=== PATIENT | female | born 1980 | race African-American/Black ===

== ENCOUNTER → 2020-02-05 08:43 | Outpatient (BNVA) | payer OTHER, MEDICAID, SELFPAY | PROVIDERS: PCP Internal Medicine; Visit Provider Surgery | DX: Z01.818 Encounter for other preprocedural examination (principal); E66.9 Obesity, unspecified; Z68.37 Body mass index [BMI] 37.0-37.9, adult; R06.02 Shortness of breath | CPT/HCPCS: 99204 ==

== ENCOUNTER 2020-04-02 17:51 | Outpatient (REF) | payer OTHER, MEDICAID, SELFPAY | END 2020-04-02 17:52 | disposition home or self-care (01) | LOC: HO.LAB 17:51 | PROVIDERS: Visit Provider Internal Medicine | DX: Z20.828 Contact with and (suspected) exposure to other viral communicable diseases (principal) | CPT/HCPCS: C9803; U0003 ==

== ENCOUNTER 2020-04-21 09:01 | Outpatient (REF) | payer OTHER, SELFPAY ==
--- NOTE | 2020-04-21 09:26 | XR_ITS ---
EXAMINATION: XR LUMBOSACRAL SPINE CLINICAL INFORMATION: Back pain COMPARISON: None TECHNIQUE: Three views of the lumbosacral spine. FINDINGS: There is normal lumbar segmentation with 5 nonrib-bearing lumbar vertebrae of normal height and normal lumbar lordosis. There is no vertebral compression, spondylolisthesis, destructive process. There are degenerative disc changes at L5-S1 with mild disc narrowing and vertebral spurring and mild facet degeneration. Mild vertebral spurring without disc narrowing present at L3-L4. Degenerative changes lower thoracic spine are present at T10-T11 and T11-T12. The SI joints and visualized sacrum are unremarkable. XR/XR lumbar spine 2-3V IMPRESSION: 1. Degenerative disc and mild facet degeneration L5-S1. 2. Mild degenerative disc changes T10-T11 and T11-T12.
[2020-04-21 10:10] LABS: MANUAL DIFF FLAG NO
[2020-04-21 10:25] LABS: Basophils Percent Auto 0.3 % (0-2); Eosinophils Absolute Auto 0.1 X10*3/uL (0.0-0.4); Eosinophils Percent Auto 1.2 % (0-4); Hematocrit 39.8 % (37-47); Hemoglobin 11.4 g/dl (12.0-16.0); Imm Gran Abs Auto 0.02 X10*3/uL (0.00-0.03); Imm Gran Pct Auto 0.2 % (0.0-0.4); Lymphocytes Absolute Auto 3.5 X10*3/uL (1.2-4.9); Lymphocytes Percent Auto 39.1 % (20-40); Mean Corpuscular HGB Conc 28.6 g/dl (31.0-35.0); Mean Corpuscular Hemoglobin 22.1 pg (27.0-33.0); Mean Platelet Volume 10.2 fL (9.4-12.3); Monocytes Absolute Auto 0.5 X10*3/uL (0.1-1.2); Monocytes Percent Auto 5.1 % (2-11); Neutrophils Absolute Auto 4.8 X10*3/uL (2.0-8.3); Neutrophils Percent Auto 54.1 % (45-73); Platelet Count 437 X10*3/uL (160-400); Red Blood Count 5.17 X10*6/uL (4.20-5.50); Red Cell Distribution Width 16.4 % (11.0-16.0); White Blood Count 8.9 X10*3/uL (4.8-10.8)
[2020-04-21 10:59] LABS: Alanine Aminotransferase 13 U/L (0-31); Albumin Level 4.4 g/dL (3.5-5.0); Alkaline Phosphatase 64 U/L (39-117); Anion Gap 12 (12-20); Aspartate Amino Transferase 16 U/L (5-31); Blood Urea Nitrogen 13 mg/dL (9-16); Calcium 9.2 mg/dL (8.4-10.2); Carbon Dioxide 27 mmol/L (22-29); Chloride 104 mmol/L (96-108); Estimated Glomerular Filt Rate > 60; Glucose Fasting 102 mg/dL (60-99); Potassium 5.3 mmol/l (3.3-5.1); Sodium 138 mmol/L (135-145); Total Protein 8.2 g/dL (6.5-8.0)
[2020-04-21 11:05] LABS: Bilirubin Total 0.2 mg/dL (0.0-1.0)
[2020-04-21 11:09] LABS: TSH reflex Free T4 1.45 mIU/mL (0.32-4.0)
[2020-04-21 11:12] LABS: Vitamin B12 666 pg/mL (200-900)
[2020-04-24 21:12] LABS: Vitamin D 25-OH, D2 <4 ng/mL; Vitamin D 25-OH, D3 35 ng/mL; Vitamin D 25-OH, Total 35 ng/mL (30-100)
== END 2020-04-21 09:02 | disposition home or self-care (01) ==
LOC: HO.LAB 09:01
PROVIDERS: Visit Provider Internal Medicine
DX: M54.5 Low back pain (principal); R53.82 Chronic fatigue, unspecified; E55.9 Vitamin D deficiency, unspecified
CPT/HCPCS: 36415; 72100; 80053; 82306; 82607; 82746; 84443; 85025

== ENCOUNTER 2020-04-21 10:22 | Outpatient (REF) | payer OTHER, SELFPAY | END 2020-04-21 10:23 | disposition home or self-care (01) | LOC: HO.LAB 10:22 | PROVIDERS: Visit Provider Internal Medicine | DX: Z20.822 Contact with and (suspected) exposure to COVID-19 (principal) | CPT/HCPCS: 36415; C9803; U0003 ==

== ENCOUNTER 2020-06-10 10:48 | Outpatient (REF) | payer OTHER, SELFPAY | END 2020-06-10 10:49 | disposition home or self-care (01) | LOC: HO.LAB 10:48 | PROVIDERS: PCP Internal Medicine; Visit Provider Internal Medicine | DX: Z20.822 Contact with and (suspected) exposure to COVID-19 (principal) | CPT/HCPCS: 36415; C9803; U0003; U0005 ==

== ENCOUNTER 2020-07-15 12:42 | Outpatient (REF) | payer OTHER, SELFPAY ==
--- NOTE | ~2020-07-15 | MM_ITS ---
EXAMINATION: MM DIAGNOSTIC DIGITAL BREAST TOMOSYNTHESIS, BILATERAL CLINICAL INFORMATION: Bilateral breast densities. The lifetime risk of breast cancer based on the Tyrer-Cuzick Model is 10.4%. COMPARISON: Mammography: 03/29/2019 TECHNIQUE: Digital breast tomosynthesis is performed in both the craniocaudal and mediolateral oblique views along with computer-aided detection (CAD). Synthesized 2D images are generated from the tomosynthesis. FINDINGS: The breasts are extremely dense, which lowers the sensitivity of mammography (ACR BI-RADS breast composition Category d). There are again noted to be multiple bilateral circumscribed densities. One dominant mass about the medial central aspect of the right breast has increased in size from approximately 3.2 x 2.9 x 2.6 cm in size on 03/29/2019 to approximately 4.0 x 3.5 x 3.3 cm in size. There is multiplicity and bilaterality of calcifications. Question of architectural distortion within the inferior medial aspect of the left breast is stable and represents superimposition of fibroglandular tissue. Patient could not stay for bilateral breast ultrasound at this time and has rescheduled. MM/MM tomosynthesis diagnostic BI IMPRESSION: Bilateral breast densities for which ultrasound is recommended. Increase in size of right breast nodule and depending on ultrasound appearance ultrasound-guided core biopsy may be recommended. ASSESSMENT: BI-RADS 0: Incomplete - Need Additional Imaging Evaluation RECOMMENDATION: Bilateral breast ultrasound. Final recommendation will be given after ultrasound study is performed. This patient's information was entered into a reminder system with a target due date for their next mammogram.
== END 2020-07-15 12:43 | disposition home or self-care (01) ==
LOC: HO.MAMMO 12:42
PROVIDERS: Visit Provider Internal Medicine
DX: N64.89 Other specified disorders of breast (principal)
CPT/HCPCS: 77062; 77066

== ENCOUNTER 2020-08-05 09:46 | Outpatient (REF) | payer OTHER, SELFPAY ==
[2020-08-05 10:36] LABS: COVID-19 Test Negative (Negative); IDNOW Serial# 55D5AD1C
== END 2020-08-05 09:47 | disposition home or self-care (01) ==
LOC: HO.LAB 09:46
PROVIDERS: Visit Provider Internal Medicine
DX: Z20.822 Contact with and (suspected) exposure to COVID-19 (principal)
CPT/HCPCS: 36415; 87635; C9803

== ENCOUNTER 2020-09-02 13:02 | Outpatient (REF) | payer OTHER, SELFPAY ==
--- NOTE | ~2020-09-02 | US_ITS ---
EXAMINATION: US DIAGNOSTIC ULTRASOUND BREAST, BILATERAL CLINICAL INFORMATION: Bilateral parenchymal asymmetries on mammography. Prior diagnostic ultrasound noted several masses right breast. COMPARISON: Mammography 07/15/2020, 03/29/2019, bilateral breast ultrasound 03/29/2019. TECHNIQUE: Bilateral targeted breast ultrasound is performed using grayscale imaging and color Doppler without and with harmonics. The right breast is imaged in 3:00 through 12:00 position and left breast 12:00 through 10:00 position. FINDINGS: Right: There is an incidental cyst 12:00 position mid depth measuring 3.7 x 1.7 cm. Follow-up of the known solid masses right breast are as follows: 7:00, 4 cm from nipple, circumscribed, heterogeneous solid. Current measurements are 3.8 x 3.4 x 1.7 cm. Prior measurements 3.3 x 2.6 x 1.6 cm on ultrasound 03/29/2019. This lesion was previously recommended for biopsy to confirm fibroadenoma. 8:00, 7 cm from nipple, circumscribed solid with some internal cystic foci. Current measurements are 1.7 x 0.7 cm. Prior measurements 1.4 x 0.7 cm. No significant change in size or appearance. 3:00, 2 cm from nipple, circumscribed solid. Current measurements are 1.0 x 0.5 cm. Prior measurements 1.0 x 0.5 cm. No significant change in size or appearance. Left: There are scattered cysts present under 1 cm. There is a solid mass not previously described 9:00 position mid depth measuring 1.4 x 0.9 cm, likely fibroadenoma. Results are discussed with the patient at time of visit. Patient has had prior outside imaging from the [place]. Neither the exams or reports are called to the retrieved as previously requested. Patient is in agreement with ultrasound-guided core sampling of the largest mass right breast 3.8 cm in greatest dimension. The other masses may continue to be followed with serial ultrasound follow-up. Results and recommendation called to office ([place]) for Dr. Alli Rodriguez on 09/02/2020. US/US breast RT limited IMPRESSION: Right: 1. The largest mass lower right breast is slightly increased in size from prior exam 03/29/2019, currently measuring 3.8 cm. Ultrasound-guided core biopsy recommended to confirm benignity, possibly fibroadenoma. 2. The other smaller masses right breast are without significant change and may continue to be followed with ultrasound. Left: 1. Scattered small cysts left breast. 2. Small oval solid mass 9:00 position is not previously described 1.4 cm, likely fibroadenoma. ASSESSMENT: BI-RADS 4: Suspicious (subcategory 4A: Low suspicion for malignancy) RECOMMENDATION: 1. Ultrasound-guided core biopsy right breast mass. 2. Ultrasound follow-up other bilateral breast masses in 6 months. This patient's information was entered into a reminder system with a target due date for their next mammogram.
== END 2020-09-02 13:03 | disposition home or self-care (01) ==
LOC: HO.MAMMO 13:02
PROVIDERS: Visit Provider Internal Medicine
DX: R92.2 Inconclusive mammogram (principal)
CPT/HCPCS: 76642

== ENCOUNTER 2020-09-16 09:04 | Outpatient (REF) | payer OTHER, SELFPAY ==
--- NOTE | ~2020-09-16 | US_ITS ---
EXAMINATION: EXAMINATION: ULTRASOUND GUIDED CORE BIOPSY BREAST, RIGHT POST PROCEDURE DIGITAL MAMMOGRAM, RIGHT CLINICAL INFORMATION: Multiple masses, likely fibroadenomas, recommend tissue sampling largest lesion on right, increased in size, 4 cm in greatest dimension. COMPARISON: Mammography 07/15/2020, bilateral breast ultrasound 09/02/2020. FINDINGS: Proper informed consent is obtained from the patient after discussion of the procedure, potential risks and complications, and alternatives. Patient was given an opportunity for questions. The patient appeared to understand. The patient consented to the procedure and signed the consent form. Hospital provided supervisor putty and caluking assisted for consent and throughout the procedure. GUIDANCE: Ultrasound-guided; aseptic technique. LESION: Oval circumscribed solid mass lower outer right breast approximately 4 cm. APPROACH: Lateral medial. ANESTHESIA: 10 mL 1% lidocaine. DERMATOTOMY: Single skin shiela dermatotomy performed. NEEDLE: 14-gauge Achieve core biopsy device with 13.5-gauge co-axial guide needle. CORES: 5. CLIP: HydroMARK; shape: butterfly. POST PROCEDURE UNILATERAL DIGITAL MAMMOGRAM: The post biopsy mammogram is performed in separate room using separate digital mammography equipment from the biopsy procedure. CC and ML views are obtained. The breasts are heterogeneously dense, which may obscure small masses (breast composition category: c) and stable oval masses. The clip marker is in position. No gross hematoma. The patient tolerated the procedure well. No immediate complications. Home instructions reviewed with the patient. Final pathology results are pending. US/US breast ndl core biopsy RT IMPRESSION: 1. Status post ultrasound-guided core biopsy right breast. 2. Clip placed: HydroMARK; shape: butterfly. 3. Pathology pending. An addendum report will be issued.
[2020-09-16 09:28] LABS: MANUAL DIFF FLAG NO
[2020-09-16 09:32] LABS: Basophils Percent Auto 0.2 % (0-2); Eosinophils Absolute Auto 0.3 X10*3/uL (0.0-0.4); Eosinophils Percent Auto 3.2 % (0-4); Hematocrit 36.2 % (37-47); Hemoglobin 10.7 g/dl (12.0-16.0); Imm Gran Abs Auto 0.02 X10*3/uL (0.00-0.03); Imm Gran Pct Auto 0.2 % (0.0-0.4); Lymphocytes Absolute Auto 3.3 X10*3/uL (1.2-4.9); Lymphocytes Percent Auto 37.5 % (20-40); Mean Corpuscular HGB Conc 29.6 g/dl (31.0-35.0); Mean Corpuscular Hemoglobin 21.9 pg (27.0-33.0); Mean Corpuscular Volume 74.2 fL (80-98); Mean Platelet Volume 9.2 fL (9.4-12.3); Monocytes Absolute Auto 0.5 X10*3/uL (0.1-1.2); Neutrophils Absolute Auto 4.7 X10*3/uL (2.0-8.3); Neutrophils Percent Auto 52.9 % (45-73); Platelet Count 383 X10*3/uL (160-400); Red Blood Count 4.88 X10*6/uL (4.20-5.50); Red Cell Distribution Width 16.6 % (11.0-16.0); White Blood Count 8.9 X10*3/uL (4.8-10.8)
[2020-09-16 09:58] LABS: Alanine Aminotransferase 15 U/L (0-31); Albumin Level 4.1 g/dL (3.5-5.0); Alkaline Phosphatase 61 U/L (39-117); Anion Gap 11 (12-20); Aspartate Amino Transferase 17 U/L (5-31); Bilirubin Total 0.2 mg/dL (0.0-1.0); Blood Urea Nitrogen 13 mg/dL (9-16); Calcium 9.4 mg/dL (8.4-10.2); Carbon Dioxide 27 mmol/L (22-29); Chloride 105 mmol/L (96-108); Estimated Glomerular Filt Rate > 60; Glucose Random 105 mg/dL (60-115); Potassium 4.7 mmol/L (3.3-5.1); Sodium 138 mmol/L (135-145); Total Protein 7.5 g/dL (6.5-8.0)
== END 2020-09-16 09:05 | disposition home or self-care (01) ==
LOC: HO.MAMMO 09:04
PROVIDERS: Absent Provider Internal Medicine; PCP Internal Medicine; Visit Provider Surgery
DX: N63.13 Unspecified lump in the right breast, lower outer quadrant (principal); N64.89 Other specified disorders of breast; D64.9 Anemia, unspecified; M54.40 Lumbago with sciatica, unspecified side; R53.82 Chronic fatigue, unspecified; I10 Essential (primary) hypertension; M54.9 Dorsalgia, unspecified
CPT/HCPCS: 19083; 36415; 77065; 80053; 85025; 88305; 99202

== ENCOUNTER → 2020-09-23 12:56 | Outpatient (BNVA) | payer OTHER, SELFPAY | PROVIDERS: PCP Internal Medicine; Referring Provider Internal Medicine; Visit Provider Surgery | DX: N64.89 Other specified disorders of breast (principal) | CPT/HCPCS: 99212 ==

== ENCOUNTER → 2021-07-14 10:52 | Outpatient (BNVA) | payer SELFPAY | PROVIDERS: PCP Internal Medicine; Visit Provider Physician Assistant Medical | DX: Z02.79 Encounter for issue of other medical certificate (principal) ==

== ENCOUNTER 2022-07-01 09:13 | Outpatient (RCR) | payer OTHER, SELFPAY ==
--- NOTE | 2022-07-01 16:45 | MHC.PT.EP ---
[facility] [place] Office [place] Office [place] Office [address] [place] Rubin [address] [phone] F: [phone] F: [phone] F: [phone] F: [phone] Physical Therapy Plan of Care Date of Evaluation: Date of Surgery: Diagnosis: Unspecified fracture of unspecified lumbar vertebra. Assessment: Pt is a 42 y/o female referred to PT for eval and treat unspecified lumbar fracture resulting in decreased tolerance and ability for bending to brain picker things from the floor, bed mobility, getting in and out of a vehicle, negotiating stairs, standing, sitting, and walking for duration secondary to evidence of non acute left L1-L4 transverse process fractures on CT scan, decreased trunk ROM and strength, decreased transfer ability, TTP of L lumbar spine, gait abnormality, and pain. Pt is deemed an appropriate candidate to receive skilled PT services to address their physical impairments in order to improve their functional ability. Frequency and Duration: The patient will be seen 2 x / wk x 5 wks. Short Term Goals: Initiate HEP. Improve baseline pain to < 5/10; initial: 8/10. Manager Scheduling Goals: I with home program. Pt will be able to stand as long as shed like with managed pain; initial: < 1 hour. Pt will improve Denzel outcome measure by at least 9 points in order to demonstrate improved function. Pt will report < 1/4 disturbed sleep d/t lumbar pain; initial: 3/4 disturbed. Pt will be able to negotiate 1 fl of stairs with reciprocal steps; initial: non reciprocal. Improve core strength to at least Good (+), initial: Fair (+) limited by pain. Treatment Plan: Modalities to reduce pain, spasms and effusion. Manual therapy to restore motion and function. Therapeutic exercise to improve strength and flexibility. Neuromuscular re-education for posture and balance. Therapeutic activities to return to functional activities of daily living. Electronically signed by: Ellis Flowers PT Please sign and return to therapist. Thank you for your referral.
--- NOTE | 2022-07-27 15:46 | MHC.PT.DC ---
[facility] [place] Office [place] Office [place] Office [address] [place] [address] [facility] [phone] F: [phone] F: [phone] F: [phone] F: [phone] Physical Therapy Discharge Report Diagnosis: Unspecified fracture of unspecified lumbar vertebra. Date of Surgery: Date of Evaluation: 07/01/22 Date of Discharge: 07/27/22 Treatments to Date: 1 Cancellations to Date: 2 No Shows to Date: 2 Discharge Status: Visit Non-compliance Discharge Summary: Electronically signed by: Ellis Flowers PT. Please sign and return to therapist. Thank you for your referral.
== END 2022-07-27 15:46 | disposition home or self-care (01) ==
LOC: HO.PTCHIC 09:13
PROVIDERS: PCP Internal Medicine; Visit Provider Nurse Practitioner Family
DX: S32.009A Unspecified fracture of unspecified lumbar vertebra, initial encounter for closed fracture (principal)
CPT/HCPCS: 97161

== ENCOUNTER 2022-07-29 09:33 | Outpatient (REF) | payer OTHER, SELFPAY ==
--- NOTE | ~2022-07-29 | CT_ITS ---
EXAMINATION: CT head/brain wo IV con CLINICAL INFORMATION: Reason for Exam R51.9 - Headache, unspecified COMPARISON: None. TECHNIQUE: Contiguous axial imaging was performed from the skull base to vertex without intravenous contrast. Sagittal and coronal reformatted images were obtained. This CT examination was performed using dose optimization techniques as appropriate, variously including the following: * Automated exposure control * Adjustment of mA and/or kV according to patient size (this includes techniques or standardized protocols for targeted exams where dose is matched to indication/reason for exam; i.e. extremities or head) Use of iterative reconstruction technique DLP: 784 mGy-cm FINDINGS: No acute osseous or soft tissue abnormality. The mastoids are clear. Mild scattered paranasal sinus mucosal thickening. There is no evidence of acute intracranial hemorrhage or territorial infarction. No abnormal mass effect or midline shift is seen. Wright to white matter differentiation is well preserved. No extra-axial fluid collections are identified. No hydrocephalus. No significant volume loss. There is no abnormal attenuation within the brain parenchyma. CT/CT head/brain wo IV con IMPRESSION: No acute intracranial abnormality including hemorrhage, mass effect, hydrocephalus, or acute territorial edematous infarction. .
[2022-07-29 09:53] LABS: MANUAL DIFF FLAG NO
[2022-07-29 10:10] LABS: Basophils Percent Auto 0.4 % (0-2); Eosinophils Absolute Auto 0.2 X10*3/uL (0.0-0.4); Eosinophils Percent Auto 2.8 % (0-4); Hematocrit 35.4 % (37.0-47.0); Hemoglobin 10.7 g/dl (12.0-16.0); Imm Gran Abs Auto 0.01 X10*3/uL (0.00-0.03); Imm Gran Pct Auto 0.1 % (0.0-0.4); Lymphocytes Absolute Auto 3.6 X10*3/uL (1.2-4.9); Lymphocytes Percent Auto 47.4 % (20-40); Mean Corpuscular HGB Conc 30.2 g/dl (31.0-35.0); Mean Corpuscular Hemoglobin 22.3 pg (27.0-33.0); Mean Corpuscular Volume 73.9 fL (80.0-98.0); Monocytes Absolute Auto 0.4 X10*3/uL (0.1-1.2); Monocytes Percent Auto 5.8 % (2-11); Neutrophils Absolute Auto 3.3 x10*3/uL (2.0-8.3); Neutrophils Percent Auto 43.5 % (45-73); Platelet Count 421 X10*3/uL (160-400); Red Blood Count 4.79 X10*6/uL (4.20-5.50); Red Cell Distribution Width 17.1 % (11.0-16.0); White Blood Count 7.6 X10*3/uL (4.8-10.8)
[2022-07-29 10:39] LABS: Iron 37 mcg/dL (30-160); Percent Iron Saturation 9 % (15-50); Total Iron Binding Capacity 398 mcg/dL (228-428); Unsaturated Iron Binding 361 ug/dL
== END 2022-07-29 09:34 | disposition home or self-care (01) ==
LOC: HO.XRAY 09:33
PROVIDERS: PCP Internal Medicine; Visit Provider Internal Medicine
DX: R51.9 Headache, unspecified (principal); D64.9 Anemia, unspecified; Z91.81 History of falling
CPT/HCPCS: 36415; 70450; 83540; 85025

== ENCOUNTER 2022-08-05 13:58 | Outpatient (REF) | payer OTHER, SELFPAY ==
--- NOTE | ~2022-08-05 | MM_ITS ---
EXAMINATION: BILATERAL TARGETED BREAST ULTRASOUND MM DIAGNOSTIC DIGITAL BREAST TOMOSYNTHESIS, BILATERAL CLINICAL INFORMATION: Mastodynia. 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 The lifetime risk of breast cancer based on the Tyrer-Cuzick Model is 9.4%. COMPARISON: Mammography: 09/16/2020 and studies dating back to 03/29/2019. TECHNIQUE: Digital breast tomosynthesis is performed in both the craniocaudal and mediolateral oblique views along with computer-aided detection (CAD). Synthesized 2D images are generated from the tomosynthesis. Bilateral targeted breast ultrasound. FINDINGS: The breasts are extremely dense, which lowers the sensitivity of mammography (ACR BI-RADS breast composition Category d). Numerous circumscribed densities are again noted within the breast bilaterally. These have increased in size since previous study of 07/15/2020. Comparison of measurements of the few largest densities bilaterally will be made in craniocaudal dimension. There is multiplicity and bilaterality of calcifications. RIGHT BREAST: The largest anterolateral lesion which had been biopsied previously measures approximately 4.6 x 3.7 cm in size compared to 4.0 x 3.4 cm on prior study. A dominant medial right breast circumscribed density measures 5.4 x 4.1 cm in size compared to 4.2 x 3.3 cm on prior study. A deep lateral density measures 4.0 x 3.2 cm in size compared to 2.6 x 2.6 cm in size on prior study. LEFT BREAST: About the medial aspect of the breast there is a circumscribed approximately 8.2 x 6.7 cm nodule compared to 5.7 x 7.3 cm on previous study. About the lateral aspect one appears to have gotten smaller which now measures 3.3 x 2.4 cm in size compared to 4.2 x 2.7 cm on previous study. Within the deep central aspect there is a 3.5 x 2.7 cm density which on prior study measured 3.3 x 2.2 cm in size. RIGHT BREAST ULTRASOUND: There are numerous circumscribed lesions present, some which are homogeneous in echotexture and some with what appears to be cystic change within it with the appearance of complex fibroadenoma and with a few greater than 4 cm in size which may represent giant fibroadenomas. These could also be related to PASH. The amount of growth is not unusual for fibroadenomas. A phyllodes tumor cannot be excluded. The largest is at approximately 7 o'clock location measuring 4.4 x 1.8 x 3.9 cm in size. At the 9 o'clock position there is a 4.0 x 1.7 x 3.4 cm in size lesion. LEFT BREAST: Numerous circumscribed lesions are noted similar to those seen within the right breast. Many of these are complex echotexture structures. Patient is having breast pain and we will refer patient to a surgeon for further clinical evaluation. Results are discussed with the patient at time of visit. Report was called to referring provider's office by patient navigator speaking to Marian. 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 Since patient is having symptoms related to the mass lesions we will refer her to a surgeon. ASSESSMENT: BI-RADS 2: Benign. RECOMMENDATION: 1. Patient should be managed based on the clinical impression. Decision to proceed with biopsy or excisions should be based on clinical grounds and degree of clinical concern. 2. Otherwise, routine annual screening mammography. This patient's information was entered into a reminder system with a target due date for their next mammogram.
== END 2022-08-05 13:59 | disposition home or self-care (01) ==
LOC: HO.MAMMO 13:58
PROVIDERS: PCP Internal Medicine; Visit Provider Internal Medicine
DX: N64.4 Mastodynia (principal)
CPT/HCPCS: 76641; 77062; 77066

== ENCOUNTER → 2022-08-26 09:44 | Outpatient (BNVA) | payer OTHER, SELFPAY | PROVIDERS: PCP Internal Medicine; Referring Provider Radiology Diagnostic Radiology; Visit Provider Surgery ==

== ENCOUNTER 2022-09-20 05:51 | Day surgery (SDC) | payer OTHER, SELFPAY ==
[2022-09-15 09:53] VITALS: BMI 38.8
--- NOTE | 2022-09-17 09:10 | HO.ANESPROP2 ---
Documented by User: Neyda Benz NP 09/17/22 09:11 HPI - Anesthesia Eval Consult details Narrative: 42yo F for Bilateral Breast Masses Excision PMFSH Active Problems Active Problems: All Active Problems (Updated 07/06/22 @ 08:59 by SAGAR Alvarado) Status post fall (Acute) Headache (Acute) Class 2 obesity with body mass index (BMI) of 38.0 to 38.9 in adult (Acute) Anemia (Acute) Breast lump (Acute) Lumbar transverse process fracture (Acute) Breast pain (Acute) Onychogryposis (Acute) Encounter for physical examination (Acute) Post-COVID chronic cough (Acute) Polyarthralgia (Acute) Pseudoangiomatous stromal hyperplasia of breast (Acute) Abnormal ultrasound of breast (Acute) Hand numbness (Acute) Asthma (Acute) Back pain (Acute) Chronic fatigue (Acute) Body mass index (BMI) of 37.0-37.9 in adult (Acute) Obesity (BMI 30-39.9) (Acute) Past Medical History Medical History Asthma Back pain Chronic fatigue Hand numbness Hypertension Polyarthralgia Family History Family History Father Cardiac murmur CVD (cardiovascular disease) Mother Diabetes Hypertension Sister No problems noted. Brother No problems noted. Brother No problems noted. Brother No problems noted. Surgical History Surgical History H/O right breast biopsy Social History Social History Housing: Apartment Alcohol intake: current Alcohol intake frequency: holidays/special occasions only Alcohol type: beer Patient Tobacco Use Status: Never used Tobacco e-Cigarette/Vaping Use: Never Used Second Hand Smoke Exposure: No service: No Current occupational status: employed Current occupational exposures/hazards: No Cognitive needs: No Hearing needs: No Vision needs: No Meds Allergies Allergy/AdvReac Type Severity Reaction Status Date / Time grass pollen Allergy Intermediate shorness Verified 08/26/22 09:55 of breath, itchy throat, itch Home Medications Medication Instructions Recorded Confirmed Last Taken Type diphenhydramine HCl 25 mg capsule 25 mg PO Q6H PRN Shortness Of 10/07/20 09/20/22 Unknown History Breath ibuprofen 600 mg tablet 600 mg PO TID 06/16/22 09/20/22 Unknown History Exam Exam Date and Time: September 17, 2022 0910 Height,Weight and Vital Signs: Height 5 ft 4 in Weight 102.512 kg Pertinent Lab Results Pertinent Lab Results: Laboratory Tests 07/29/22 09:52 WBC 7.6 Hgb 10.7 L Hct 35.4 L Plt Count 421 H Assessment and Plan Assessment Anesthesia Assessment: Chart Reviewed Documented by User: Rodolfo Chaudhry MD 09/20/22 17:59 PMFSH Past Medical History Medical History Asthma Back pain Chronic fatigue Hand numbness Hypertension Polyarthralgia Functional capacity: independent ambulation Family History Family History Father Cardiac murmur CVD (cardiovascular disease) Mother Diabetes Hypertension Sister No problems noted. Brother No problems noted. Brother No problems noted. Brother No problems noted. Family history of problems with anesthesia: No Surgical History Surgical History H/O right breast biopsy History of Problems with Anesthesia: No Social History Social History Housing: Apartment Alcohol intake: current Alcohol intake frequency: holidays/special occasions only Alcohol type: beer Patient Tobacco Use Status: Never used Tobacco e-Cigarette/Vaping Use: Never Used Second Hand Smoke Exposure: No service: No Current occupational status: employed Current occupational exposures/hazards: No Cognitive needs: No Hearing needs: No Vision needs: No Meds Allergies Allergy/AdvReac Type Severity Reaction Status Date / Time grass pollen Allergy Intermediate shorness Verified 08/26/22 09:55 of breath, itchy throat, itch Home Medications Medication Instructions Recorded Confirmed Last Taken Type diphenhydramine HCl 25 mg capsule 25 mg PO Q6H PRN Shortness Of 10/07/20 09/20/22 Unknown History Breath ibuprofen 600 mg tablet 600 mg PO TID 06/16/22 09/20/22 Unknown History Exam Airway Mallampati Class: IV TM Dist: >3cm Neck ROM: Full Loose/Missing/Broken Teeth: Yes Assessment and Plan Assessment Anesthesia Assessment: Anesthesia Plan Discussed Final Anesthetic Review Family History of Problems with Anesthesia: No History of Problems with Anesthesia: No NPO: Yes ASA Class: II Final Preanesthetic Review: Meds/Allgs Chart Reviewed, Consent Obtained/Reviewed and Anes Risks/Benef Reviewed Patient Risk: Intermediate Procedure Risk: Intermediate Anesthetic Plan Anesthetic Plan: GA Disposition: Standard PACU
[2022-09-20] VITALS (7 sets, daily range): BP systolic 153–173; BP diastolic 85–95; PULSE 77–91; RESP 16–18; TEMP 36.1–36.2; O2SAT 97–100; BMI 36.3
[2022-09-20 06:27] LABS: UPreg QC Valid YES; Urine Pregnancy NEGATIVE (NEGATIVE)
[2022-09-20] MEDS: Lactated Ringers 1,000 ML 100 ML IVCONT (06:40)
--- NOTE | 2022-09-20 07:39 | MHC.SHP ---
Pre-Procedural Eval Section A Date of Service: 09/20/22 The patient is an INPATIENT: No Changes since office visit: Yes Patient answered all questions; No Cold of Flu in the past 2 weeks, No New Medical Problems and No Changes in Medication The History & Physical has been completed within 30 days and I have reviewed it.: Yes Section B Chief Complaint: Unspecified lump in unspecified breast Allergies: Allergies Allergy/AdvReac Type Severity Reaction Status Date / Time grass pollen Allergy Intermediate shorness Verified 08/26/22 09:55 of breath, itchy throat, itch Plan Diagnosis/Plan: Unchanged I have reviewed the history and physical and performed a pertinent physical examination on my patient. No changes have occurred unless specified. Time Spent With Patient Time: Total time managing care of this patient today ____ minutes.
--- NOTE | 2022-09-20 07:58 | P.OP_ITS ---
Operative Note Operative Note Date of Service: 09/20/22 Narrative: Preoperative diagnosis: bilateral breast masses, fibroadenoma Postoperative diagnosis: same Procedure: excision of bilateral breast masses Surgeon: Rei Acevedo MD Foot Press Operator: Myla Rowe PA-C Anesthesia: general LMA Indications for procedure: 42-year-old female patient presenting with a known history of fibroadenoma previously biopsied which have increased in size. Patient is requested excision of the multiple bilateral palpable breast lumps. Operative findings: Bilateral breast lumps including 06:00 o'clock, 07:00 o'clock and 09:00 o'clock in the left breast and 09:00 o'clock and 06:00 o'clock right breast Specimen: bilateral breast source Estimated blood loss: 20 mL Complications: none Procedure details: patient was brought to the OR placed in a supine position. After administering general anesthesia patient's bilateral breasts were prepped with ChloraPrep and draped in a sterile fashion. A surgical time-out was called the consent confirmed. Patient received preoperative antibiotics and Venodyne boots were in place. Beginning in the left breast local anesthesia was infiltrated in a curvilinear fashion and the inferior portion of the nipple- areolar complex. A curvilinear incision was then made along the margin of the areola and carried out through subcutaneous tissue. Superior inferior skin flaps were then created. The palpable fibroadenoma noted in the 9 o'clock p osition was then grasped with an Allis clamp. Electrocautery and scissors were then used to excise around the palpable mass. Multiple small cysts were noted consistent with fibrocystic change surrounding the palpable lump. In a similar fashion lesions at the 06:00 o'clock and 07:00 o'clock were also identified, grasped with Allis clamp and excised using electrocautery and curved Mcclain scissors. Attention was then directed to the right breast were curvilinear incision was made in the lower outer portion of the nipple-areolar complex. Incision was carried out through subcutaneous tissue. Superior inferior skin flaps were then created. A palpable mass in the 9 o'clock position was then grasped with an Allis clamp approximately 5 cm from the areola. Electrocautery was then used to dissect around the palpable lesion in the lesion sent pathology for further examination. A 2nd lesion slightly inferior to this was in grasped with Allis clamp and resected corresponding to the 9 to 6 o'clock position. This was also sent to pathology for further examination. Hemostasis was then assured using electrocautery. Bilateral incisions were then irrigated with saline solution and checked for hemostasis. Hemostasis was assured using electrocautery. Deep breast tissue was then reapproximated on both sides using interrupted 3-0 Polysorb sutures. Dermis was reapproximated using interrupted 3-0 Polysorb sutures. Skin was then closed using a running subcuticular 4-0 Polysorb suture. Steri-Strips, 2 x 2 gauze and Tegaderm were then applied. Patient tolerated the procedure well. Sponge, instrument, and needle counts reported as correct. Patient was transferred to PACU in stable condition.
[2022-09-20] MEDS: oxyCODONE HCl Immed Release 5 MG TABLET PO (10:03)
== END 2022-09-20 10:57 | disposition home or self-care (01) ==
PROVIDERS: Nurse Practitioner; PCP Internal Medicine; Visit Provider Surgery
PROC: (CPT 19120; principal; 2022-09-20 07:30)
DX: D24.2 Benign neoplasm of left breast (principal); D24.1 Benign neoplasm of right breast; N64.4 Mastodynia; N64.89 Other specified disorders of breast; I10 Essential (primary) hypertension; J45.909 Unspecified asthma, uncomplicated; R53.82 Chronic fatigue, unspecified; Z79.1 Long term (current) use of non-steroidal anti-inflammatories (NSAID); Z79.899 Other long term (current) drug therapy; Z98.890 Other specified postprocedural states
CPT/HCPCS: 19120; 81025; 88305; 88307; J0131; J0690; J1100; J2250; J2405; J3010

== ENCOUNTER → 2022-09-28 10:15 | Outpatient (BNVA) | payer OTHER, SELFPAY | PROVIDERS: PCP Internal Medicine; Visit Provider Surgery ==

== ENCOUNTER 2023-03-31 08:47 | Emergency (ER) | payer OTHER, MEDICAID, SELFPAY ==
--- NOTE | ~2023-03-31 | CT_ITS ---
CT LUMBAR SPINE WITHOUT CONTRAST CLINICAL INFORMATION: New L1-L4 fracture. COMPARISON: Lumbar spine radiographs March 31, 2023. TECHNIQUE: A multidetector CT acquisition of the lumbar spine is obtained without contrast. This CT examination was performed using dose optimization techniques as appropriate, variously including the following: *Automated exposure control *Adjustment of mA and/or kV according to patient size (this includes techniques or standardized protocols for targeted exams where dose is matched to indication/reason for exam; i.e. extremities or head) *Use of iterative reconstruction technique FINDINGS: There are 5 nonrib-bearing lumbar-type vertebral bodies. There are no acute fractures and there are no acute subluxations. There are chronic appearing avulsion fractures involving the left L1, L2, L3, and L4 transverse process. All of the avulsion fracture fragments appear well-corticated/chronic. There is moderate to severe disc volume loss and there is vacuum phenomenon at L5-S1. The remaining disc volumes are preserved. There are small multilevel endplate osteophytes. There is vacuum phenomenon within the SI joints bilaterally. Soft tissue fullness of the right adnexa measuring up to 4.6 cm that should be further assessed with pelvic ultrasound. At L5-S1, there is moderate disc volume loss, there is vacuum phenomenon and a diffuse annular disc bulge and hypertrophic facet arthropathy result in moderate to severe right-sided foraminal stenosis with possible mass effect on the exiting right nerve root. CT/CT lumbar spine wo IV con IMPRESSION: - No acute fractures. There are chronic appearing ununited fractures involving the left L1, L2, L3, and L4 transverse processes. - At L5-S1, there is moderate disc volume loss, there is vacuum phenomenon and a diffuse annular disc bulge and hypertrophic facet arthropathy result in moderate to severe right-sided foraminal stenosis with possible mass effect on the exiting right nerve root. - Soft tissue fullness of the right adnexa measuring up to 4.6 cm that should be further assessed with pelvic ultrasound.
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
[2023-03-31 08:55] VITALS: BP 164/86; PULSE 75; RESP 20; TEMP 36.4; O2SAT 100; BMI 36.3
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
[2023-03-31] MEDS: Ketorolac Tromethamine 30 MG/ML VIAL IM (10:13)
[2023-03-31] MEDS: Lidocaine 4 % Patch ADH..PATCH 1 PATCH TRANSDERMA (10:13)
[2023-03-31 10:41] LABS: UPreg QC Valid YES; Urine Pregnancy NEGATIVE (NEGATIVE)
== END 2023-03-31 13:39 | disposition home or self-care (01) ==
PROVIDERS: Physician Assistant Medical; Emergency Provider Student in an Organized Health Care Education/Training Program; PCP Internal Medicine
DX: S39.92XA Unspecified injury of lower back, initial encounter (principal); V43.52XA Car driver injured in collision with other type car in traffic accident, initial encounter; Y93.9 Activity, unspecified; Y92.410 Unspecified street and highway as the place of occurrence of the external cause; Y99.9 Unspecified external cause status; Z79.899 Other long term (current) drug therapy
CPT/HCPCS: 72100; 72131; 81025; 96372; 99284; J1885

== ENCOUNTER 2023-04-12 17:06 | Outpatient (AMB) | payer SELFPAY ==
[2023-04-12 17:10] VITALS: BP 140/84; BMI 37.0
--- NOTE | 2023-04-12 17:10 | A.OFFPC_ITS ---
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 Accompanied by: Self / Same As Patient Allergies grass pollen Allergy (Intermediate, Verified 04/12/23 17:17) shorness of breath, itchy throat, itch Medication List - Last Reconciled 04/12/23 by Val Rodriguez MD acetaminophen 650 mg (2 x 325 mg) PO Q4H PRN cetirizine 10 mg PO DAILY PRN 90 days cyclobenzaprine 5 mg PO BEDTIME PRN diphenhydramine HCl 25 mg PO Q6H PRN epinephrine 0.3 mg (0.3 mL) IM DIRECTED PRN 30 days lidocaine 5% (Lidoderm) 1 patch topical DAILY naproxen 500 mg PO Q8-12H PRN tizanidine 2 mg PO Q8H PRN Ventolin HFA 90 mcg/actuation (albuterol sulfate) 2 puffs inhalation Q6H PRN 30 days NS Tobacco use date assessed: 07/06/22 Dental Screening Dental Screen Date: 04/12/23 Did you have a dental visit in the last 12 months?: Yes Did you have a dental problem in the last 6 months where you did not have access to dental care?: No Was dental information given to patient?: Patient has dentist HPI HPI Comments History of Present Illness Details This is a 43-year-old female that comes accompanied by female partner complaining of elevated blood pressure associated occasionally with chest pain and with headaches. I will start her on hydrochlorothiazide 12.5 mg once a day. She also has anemia and CBC will be repeated. [facility] Medical History (Updated 04/12/23 @ 17:22 by Val Rodriguez MD) Polyarthralgia Hand numbness Chronic fatigue Back pain Hypertension Asthma Surgical History H/O right breast biopsy Family History Father Cardiac murmur CVD (cardiovascular disease) Mother Diabetes Hypertension Sister No problems noted. Brother No problems noted. Brother No problems noted. Brother No problems noted. Social History Housing: Apartment Alcohol intake: current Alcohol intake frequency: holidays/special occasions only Alcohol type: beer Patient Tobacco Use Status: Never used Tobacco e-Cigarette/Vaping Use: Never Used Second Hand Smoke Exposure: No service: No Current occupational status: employed Current occupational exposures/hazards: No Cognitive needs: No Hearing needs: No Vision needs: No Questionnaire Thrive Questionnaire Date Thrive assessed: 06/16/22 KYAW-7 AMB Questionnaire KYAW-7 Date KYAW - 7 assessed: 06/16/22 Source: Developed by Drs. Anthony Avina, Yanely Valencia, Milton Parker and colleagues, with an educational lisandra from [employer]. Review of Systems Const All systems reviewed & are unremarkable except as noted in HPI and below Eyes Reports no additional complaints, Denies change in vision and Denies other visual disturbances Card Denies chest pain at rest, Denies chest pain with activity, Denies edema, Denies irregular heart rhythm, Denies claudication, Denies dyspnea, Denies dyspnea on exertion, Denies orthopnea, Denies paroxysmal nocturnal dyspnea and Denies slow heart rate Resp Denies cough, Denies dyspnea and Denies dyspnea on exertion GI Denies abdominal pain, Denies change in bowel habits, Denies excessive flatus, Denies nausea and Denies vomiting Denies urinary incontinence, Denies urinary hesitancy and Denies urinary urgency Musc Denies abnormal gait, Denies atrophy, Denies deformity and Denies limited range of motion Skin/Breast Denies bleeding lesions, Denies changing lesions and Denies rash Neuro Denies abnormal gait, Denies behavioral changes and Denies lack of coordination Psych Denies behavioral changes Physical exam (Primary Care) Vital Signs: Last Vital Signs BP 140/84 H 04/12/23 17:10 BMI result Body Mass Index 37.0 Tobacco/Smoking Status: Tobacco use Status Tobacco use date assessed 07/06/22 04/12/23 17:11 Patient Tobacco Use Status Never used Tobacco 04/12/23 17:11 e-Cigarette/Vaping Use Never Used 04/12/23 17:11 Thrive Assessment: Date of Thrive Assessment Date Thrive assessed 06/16/22 04/12/23 17:11 Eyes General: appearance normal, both eyes and all related structures Eyelids: Yes eyelids normal Conjunctivae: conjunctivae normal Neck Neck: Yes normal visual inspection and Yes supple Resp Effort & Inspection: normal respiratory effort Auscultation: clear to auscultation bilaterally Cardio Jugular venous distension: no JVD Rate: regular rate Rhythm: regular rhythm Heart sounds: S1 normal heart sound present and S2 normal heart sound present Extrem General: Yes full ROM Assessment and Plan Assessment & Plan (1) Essential hypertension: Code(s): I10 - Essential (primary) hypertension Plan: Start hydrochlorothiazide. Blood pressure goal is equal or less than 130/80. (2) Anemia: Code(s): D64.9 - Anemia, unspecified Plan: Repeat CBC. Orders: Orders Complete Blood Count Auto Diff Today D64.9 - Anemia, unspecified IRON PROFILE Today D64.9 - Anemia, unspecified Vitamin D 25-OH Total Today E55.9 - Vitamin D deficiency, unspecified Vitamin B12 and Folate Today E53.8 - Deficiency of other specified B group vitamins Comprehensive [place]. Panel Fast Today I10 - Essential (primary) hypertension Lipid Panel Today E78.5 - Hyperlipidemia, unspecified, I10 - Essential (primary) hypertension Medications: New hydrochlorothiazide 12.5 mg PO DAILY 90 days 90 tabs 0RF I10 - Essential (primary) hypertension Coding Level of Care Code Est Pt Level 3 (56185) Diagnoses Essential hypertension I10 Anemia D64.9 Time Spent (min) 18
== END 2023-04-12 17:25 | disposition home or self-care (01) ==
LOC: HO.HMGH 17:06
PROVIDERS: PCP Internal Medicine; Visit Provider Internal Medicine
DX: I10 Essential (primary) hypertension (principal); D64.9 Anemia, unspecified
CPT/HCPCS: 99213

== ENCOUNTER → 2023-05-26 15:10 | Outpatient (BNVA) | payer SELFPAY | PROVIDERS: PCP Internal Medicine; Visit Provider Physician Assistant | DX: Z02.79 Encounter for issue of other medical certificate (principal) ==

== ENCOUNTER 2023-08-17 14:20 | Outpatient (AMB) | payer OTHER, SELFPAY ==
[2023-08-17 14:29] VITALS: BP 148/98; BMI 37.0
--- NOTE | 2023-08-17 14:29 | MHC.PC.OV ---
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 Accompanied by: Significant Other Allergies grass pollen Allergy (Intermediate, Verified 08/17/23 14:42) shorness of breath, itchy throat, itch Medication List - Last Reconciled 08/17/23 by Val Rodriguez MD epinephrine 0.3 mg (0.3 mL) IM DIRECTED PRN 30 days Ventolin HFA 90 mcg/actuation (albuterol sulfate) 2 puffs inhalation Q6H PRN 30 days NS Tobacco use date assessed: 08/17/23 Dental Screening Dental Screen Date: 08/17/23 Did you have a dental visit in the last 12 months?: No Did you have a dental problem in the last 6 months where you did not have access to dental care?: No Was dental information given to patient?: Patient has dentist HPI HPI Comments History of Present Illness Details This is a 43-year-old female that comes accompanied by significant other for her physical exam. Has elevated blood pressure and I will start her on losartan. Blood pressure will be recheck by nurse in 3 weeks. Last mammogram was 2022 and had breast biopsy which was benign. Pap smear was done few years ago as per patient and will be referred. Complains of blurry vision and will be referred to Ophthalmology. She is obese with a BMI of 37 and will be referred to weight management. [facility] Medical History (Updated 08/17/23 @ 14:59 by Val Rodriguez MD) Lumbar transverse process fracture Polyarthralgia Hand numbness Chronic fatigue Back pain Hypertension Asthma Surgical History H/O right breast biopsy Family History Father Cardiac murmur CVD (cardiovascular disease) Mother Diabetes Hypertension Sister No problems noted. Brother No problems noted. Brother No problems noted. Brother No problems noted. Social History Housing: Apartment Alcohol intake: current Alcohol intake frequency: holidays/special occasions only Alcohol type: beer Patient Tobacco Use Status: Never used Tobacco e-Cigarette/Vaping Use: Never Used Second Hand Smoke Exposure: No service: No Current occupational status: employed Current occupational exposures/hazards: No Cognitive needs: No Hearing needs: No Vision needs: Yes Questionnaire PHQ-9 Over the last 2 weeks, how often have you been bothered by any of the following problems? 1. Little interest or pleasure in doing things: not at all 2. Feeling down, depressed, or hopeless: not at all 3. Trouble falling or staying asleep, or sleeping too much: not at all 4. Feeling tired or having little energy: not at all 5. Poor appetite or overeating: not at all 6. Feeling bad about yourself - or that you are a failure or have let yourself or your family down: not at all 7. Trouble concentrating on things, such as reading the newspaper or watching television: not at all 8. Moving or speaking so slowly that other people could have noticed. Or the opposite - being so fidgety or restless that you have been moving around a lot more than usual: not at all 9. Thoughts that you would be better off or of hurting yourself in some way: not at all Total score: 0 Depression Screening Interpretation: Negative Depression Screening Done: Yes 06630 - PHQ-9 Billing: Yes Source: Developed by Drs. Anthony Avina, Yanely Valencia, Milton Parker and colleagues, with an educational lisandra from [employer]. Thrive Questionnaire Date Thrive assessed: 08/17/23 I am a: Patient What is your living situation today?: I have a steady place to live Within the past 12 months, did the food you bought not last and you didn't have the money to get more?: Never true Within the past 12 months, did you worry whether your food would run out before you got money to buy more?: Never true Do you have trouble paying for medicines?: No Do you have trouble getting transportation to medical appointments?: No Do you have trouble paying your heating and electricity bill?: No Do you have trouble taking care of your child, family member or friend?: No Do you have trouble with day-to-day activities such as bathing, preparing meals, shopping, managing finances, etc.?: No Are you currently unemployed and looking for a job?: No Are you interested in more education?: No Please select the resources that you would like help with: None Currently or been in a relationship where the following occur: no concerns reported THRIVE Score: 0 AUDIT C Alcohol Use Questionnaire (AUDIT-C) 1. How often do you have a drink containing alcohol?: Monthly or less 2. How many drinks containing alcohol do you have on a typical day when you are drinking?: 1 or 2 3. How often do you have six or more drinks on one occasion?: Never Total Score: 1 Score Reviewed/Action Taken: No KYAW-7 AMB Questionnaire KYAW-7 Date KYAW - 7 assessed: 08/17/23 Feeling nervous, anxious, or on edge: 3 = Nearly every day Not being able to stop or control worryin = Not at all Worrying too much about different things: 0 = Not at all Trouble relaxin = Not at all Being so restless that it is hard to sit still: 0 = Not at all Becoming easily annoyed or irritable: 0 = Not at all Feeling afraid as if something awful might happen: 0 = Not at all Total KYAW-7 score (0-4 normal; 5-9 mild; 10-14 moderate; 15-21 severe): 3 Source: Developed by Drs. Anthony Avina, Yanely Valencia, Milton Parker and colleagues, with an educational lisandra from [employer]. KYAW-7 Assessment Billing KYAW-7 Assessment Tool: KYAW-7 Assessment 22485 Review of Systems Const All systems reviewed & are unremarkable except as noted in HPI and below Eyes Reports no additional complaints, Denies change in vision and Denies other visual disturbances Card Denies chest pain at rest, Denies chest pain with activity, Denies edema, Denies irregular heart rhythm, Denies claudication, Denies dyspnea, Denies dyspnea on exertion, Denies orthopnea, Denies paroxysmal nocturnal dyspnea and Denies slow heart rate Resp Denies cough, Denies dyspnea and Denies dyspnea on exertion Physical exam (Primary Care) Vital Signs: Last Vital Signs BP 148/98 H 08/17/23 14:29 BMI result Body Mass Index 37.0 Tobacco/Smoking Status: Tobacco use Status Tobacco use date assessed 08/17/23 08/17/23 14:36 Patient Tobacco Use Status Never used Tobacco 08/17/23 14:36 e-Cigarette/Vaping Use Never Used 08/17/23 14:36 PHQ-9: PHQ-9 Score PHQ-9: Total score 0 08/17/23 14:36 Depression Screening Interpretation: Negative Thrive Assessment: Date of Thrive Assessment Date Thrive assessed 08/17/23 08/17/23 14:36 Currently or been in a relationship where the following occur: no concerns reported Const Orientation/consciousness: patient oriented x3 HENMT Head: Yes normal to inspection, Yes normocephalic and Yes atraumatic Ears: external ears normal Eyes General: appearance normal, both eyes and all related structures Eyelids: Yes eyelids normal Conjunctivae: conjunctivae normal Neck Neck: Yes normal visual inspection and Yes supple Resp Effort & Inspection: normal respiratory effort Auscultation: clear to auscultation bilaterally Cardio Jugular venous distension: no JVD Rate: regular rate Rhythm: regular rhythm Heart sounds: S1 normal heart sound present and S2 normal heart sound present GI Inspection: Yes normal to inspection Palpation (GI): Soft to palpation and nontender Auscultation: normal bowel sounds Skin General skin exam: no rashes or lesions noted Neuro General: patient oriented x3 and no focal motor deficits Extrem General: Yes full ROM Psych Appearance: grossly normal Assessment and Plan Assessment & Plan (1) Encounter for physical examination: Code(s): Z00.00 - Encounter for general adult medical examination without abnormal findings Plan: Repeat in a year. Orders: Orders Lipid Panel Today E78.5 - Hyperlipidemia, unspecified Vitamin B12 and Folate Today E53.8 - Deficiency of other specified B group vitamins Vitamin D 25-OH Total Today E55.9 - Vitamin D deficiency, unspecified IRON PROFILE Today D64.9 - Anemia, unspecified MM screening mammo BI Today Z12.31 - Encounter for screening mammogram for malignant neoplasm of breast Complete Blood Count Auto Diff Today D64.9 - Anemia, unspecified Comprehensive [place]. 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 Referral Z12.4 - Encounter for screening for malignant neoplasm of cervix Medical Weight Management Referral E66.9 - Obesity, unspecified, Z68.37 - Body mass index [BMI] 37.0-37.9, adult Ophthalmology Referral H53.8 - Other visual disturbances Medications: New losartan 25 mg PO DAILY 90 days 90 tabs 1RF I10 - Essential (primary) hypertension Refilled epinephrine 0.3 mg (0.3 mL) IM DIRECTED 30 days PRN 2 ea 1RF anaphylaxis Ventolin HFA 90 mcg/actuation (albuterol sulfate) 2 puffs inhalation Q6H 30 days PRN 8 grams 2RF shortness of breath or wheezing NS Coding Level of Care Code Est Pt Prev Care 40-64y(13252) Diagnoses Encounter for physical examination Z00.00 Additional Codes KYAW-7 Assessment Billing - KYAW-7 Assessment Tool: KYAW-7 Assessment 43106 ([id number]) Time Spent (min) 31
== END 2023-08-17 14:56 | disposition home or self-care (01) ==
PROVIDERS: PCP Internal Medicine; Visit Provider Internal Medicine
DX: Z00.00 Encounter for general adult medical examination without abnormal findings (principal); I10 Essential (primary) hypertension
CPT/HCPCS: 99396

== ENCOUNTER → 2023-08-29 09:31 | Outpatient (BNVA) | payer OTHER, SELFPAY | PROVIDERS: PCP Internal Medicine; Visit Provider Physician Assistant Surgical ==

== ENCOUNTER → 2023-10-10 11:00 | Outpatient (BNV) | payer OTHER, SELFPAY | PROVIDERS: PCP Student in an Organized Health Care Education/Training Program; Visit Provider Radiology Diagnostic Radiology | DX: Z12.31 Encounter for screening mammogram for malignant neoplasm of breast (principal) | CPT/HCPCS: 77063; 77067 ==

== ENCOUNTER 2023-10-10 11:07 | Outpatient (REF) | payer OTHER, SELFPAY ==
--- NOTE | ~2023-10-10 | MM_ITS ---
EXAMINATION: MM SCREENING DIGITAL BREAST TOMOSYNTHESIS, BILATERAL CLINICAL INFORMATION: Screening. Asymptomatic. The patient has a history of bilateral breast excisions, history of pseudoangiomatous stromal hyperplasia and multiple, bilateral, solid, stable masses. COMPARISON: Mammography: This study is compared with prior exams dating back to 2019. TECHNIQUE: Digital breast tomosynthesis is performed in both the craniocaudal and mediolateral oblique views along with computer-aided detection (CAD). Synthesized 2D images are generated from the tomosynthesis. FINDINGS: There are scattered areas of fibroglandular density (ACR BI-RADS breast composition Category b). There is a focal asymmetry in the upper outer quadrant of the right breast at its deep third. Additional mammographic and targeted sonographic imaging of this region is advised. This could be postsurgical. One of the patient's known right masses is now increased in size when compared with the prior mammogram. This located in the medial aspect of the right breast and now measures approximately 67 mm. Previously, on the last mammogram this finding is at least 10 mm smaller. Further evaluation of this region with targeted sonography is advised. There are other, numerous, bilateral, well-circumscribed masses in each breast have not changed significantly by mammography. There are bilateral benign calcifications which are unchanged. There is a tissue marker in one of well-circumscribed masses in the lateral aspect of the right breast. MM/MM tomosynthesis screening BI IMPRESSION: Focal asymmetry of the upper outer quadrant of the right breast warrants additional mammographic and targeted sonographic imaging. Medially located right breast mass is increased in size since the prior study now measuring at least 67 mm in greatest dimension. Dedicated diagnostic mammography on sonography sonography of this region is advised. Mammographically benign findings of the left breast. The density of the patient's breasts and numerous abutting masses limits the sensitivity of this mammogram in the detection of breast cancer.. It is recommended that the patient have a breast MRI some point in the near future to rule out any significant breast abnormality as which may be indistinct by mammography and sonography. ASSESSMENT: BI-RADS BI-RADS 0 - Incomplete: Needs additional Imaging. RECOMMENDATION: 1. Additional views of the right breast 2. Targeted ultrasound if warranted after review of the additional views. 3. Radiology department staff will contact the patient for additional imaging. Additional Imaging required This examination should not preclude the clinical evaluation of a suspicious palpable abnormality. This patient's information was entered into a reminder system with a target due date for their next mammogram.
== END 2023-10-10 11:08 | disposition home or self-care (01) ==
LOC: HO.MAMMO 11:07
PROVIDERS: PCP Student in an Organized Health Care Education/Training Program; Visit Provider Internal Medicine
DX: Z12.31 Encounter for screening mammogram for malignant neoplasm of breast (principal)
CPT/HCPCS: 77063; 77067

== ENCOUNTER 2023-11-11 14:56 | Outpatient (AMB) | payer OTHER, SELFPAY ==
--- NOTE | 2023-11-11 14:58 | MHC.OFFVISWM ---
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 She heard about our program from her who had surgery with Dr Bautista in 2017. Her goal is to lose weight and achieve a healthy lifestyle as well as to improve, if not resolve, obesity related medical conditions, including htn. She reports first being concerned about her weight 3 years, highest weight to date was 235. Current weight is 235.8 pounds with a BMI of 39.2. She has tried multiple methods of weight loss including fad diets without permanent results. She lives with her . 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 She wakes at:?6 pm , and goes to bed at?10 am. Breakfast: smashed plantains w salami and eggs AM snack: fruit, chips, cookies Lunch: rice and beans PM snack: chips, cookies Dinner: pasta, rice, chicken After dinner: skip Other snacks: cookies Liquids: 16 oz water daily, 3 cans pepsi, mountain dew, coke daily, 12 oz OJ daily Alcohol/marijuana/tobacco intake: none Exercise: none, treadmill, stationary bike at home GERD score: 11 BERNARDO score: 0 ESS score: 5 QOL score: 60 PFSH Medical History Lumbar transverse process fracture Polyarthralgia Hand numbness Chronic fatigue Back pain Hypertension Asthma Surgical History H/O right breast biopsy Family History Father Cardiac murmur CVD (cardiovascular disease) Mother Diabetes Hypertension Sister No problems noted. Brother No problems noted. Brother No problems noted. Brother No problems noted. Social History Housing: Apartment Alcohol intake: current Alcohol intake frequency: holidays/special occasions only Alcohol type: beer Patient Tobacco Use Status: Never used Tobacco e-Cigarette/Vaping Use: Never Used Second Hand Smoke Exposure: No service: No Current occupational status: employed Current occupational exposures/hazards: No Cognitive needs: No Hearing needs: No Vision needs: Yes Physical Exam Const General: cooperative, healthy appearing and no acute distress Orientation/consciousness: patient oriented x3 HEENT Head: Yes normal to inspection Ears: hearing grossly normal bilaterally General nose exam: Normal external nose present Face and sinus: Yes normal facial exam Eyes General: appearance normal, both eyes and all related structures Resp Effort & Inspection: normal respiratory effort Auscultation: clear to auscultation bilaterally Cardio Rate: regular rate Rhythm: regular rhythm Heart sounds: S1 normal heart sound present and S2 normal heart sound present GI Inspection: Yes normal to inspection, No distended and Yes obesity Palpation (GI): Soft to palpation, nontender and no guarding Auscultation: normal bowel sounds Skin General skin exam: no rashes or lesions noted Neuro General: patient oriented x3 Extrem General: No edema Psych Appearance: grossly normal Mental Status: mental status grossly normal Speech and movement: Normal speech and movement present Affect: normal affect Attitude: cooperative Quality Reporting (2020) Adult ([facility] 138/06/09/68) Smoking risk assessment performed?: Yes Patient Tobacco Use Status: Never used Tobacco Assessment & Plan Assessment & Plan (1) Obesity (BMI 30-39.9): Code(s): E66.9 - Obesity, unspecified Category: Medical Plan: This is a?43 yo female who will start our SWL program to prepare for bariatric surgery.? Blood work, CXR, ECG, Abd US and UGI have been ordered. She is being scheduled for initial consultations. She will start SWL classes and watch the first three videos before her next appointment. 1. You have been given a paper with a link to our software sathish ([employer]) to generate an individualized nutritional and exercise plan specific for you. Please send me a screenshot of the plans you will generate Meal to include lean meat (beef, fish, pork, turkey, chicken), or maltese yogurt, or egg whites, or beans with a salad with olive oil and fruits (berries, pears, apples, kiwi). Avoid salt, breads, potatoes, rice, pasta, desserts. 2. If you choose shakes, each shake would be drunk slowly, like coffee over a period of 2 hours. 3. If you choose bars, cut each bar in 4 pieces and eat each piece in 30min to make each bar last 2 hours. 4. I emphasized the importance of measuring accurately the food portion and measure it when serving the food on a plate 5. The meal portions include a specific number of forks of meat (protein) and salad. You always eat the meat portion but you can replace up to half of salad/vegetables portion with rice, potatoes or pasta, or a fruit ?if you like. The less you do it the better weight loss will be. 6. One full-size fork is what it can be scooped on the fork without falling aside and not what can be bit with the fork. Use regular forks like those you find in a typical restaurant. 7.? Please send me weight measurements from your body composition scale as soon as possible and then once a week. Always include your diet and exercise plan. The best time to weigh yourself is first thing in the morning after going to the bathroom. 8. The best choice for exercise would be treadmill or stationary bike in your home 9.?Goal is to lose at least 1.5-2lbs per week, and about 10% before surgery, which is about 24 pounds 10. Please follow the diet plan exactly without any change. If you don't like something about the plan or you feel hungry you need to communicate with me so I can help you revise the plan. My cell phone number to communicate with me by text is [phone] Patient is morbidly obese and is not considered stable at this time.?I spent a total of 70 minutes reviewing/updating records, examining the patient and counseling the patient on weight management as detailed above. Orders: Orders Insulin Today D64.9 - Anemia, unspecified, E66.9 - Obesity, unspecified, I10 - Essential (primary) hypertension Hemoglobin A1c Today D64.9 - Anemia, unspecified, E66.9 - Obesity, unspecified, I10 - Essential (primary) hypertension Lipid Panel Today D64.9 - Anemia, unspecified, E66.9 - Obesity, unspecified, I10 - Essential (primary) hypertension C Reactive Protein Today D64.9 - Anemia, unspecified, E66.9 - Obesity, unspecified, I10 - Essential (primary) hypertension Vitamin B1 Today D64.9 - Anemia, unspecified, E66.9 - Obesity, unspecified, I10 - Essential (primary) hypertension Vitamin A Today D64.9 - Anemia, unspecified, E66.9 - Obesity, unspecified, I10 - Essential (primary) hypertension TSH reflex Free T4 Today D64.9 - Anemia, unspecified, E66.9 - Obesity, unspecified, I10 - Essential (primary) hypertension Vitamin D 25-OH Total Today D64.9 - Anemia, unspecified, E66.9 - Obesity, unspecified, I10 - Essential (primary) hypertension US abdomen comp w elastography Today D64.9 - Anemia, unspecified, E66.9 - Obesity, unspecified, I10 - Essential (primary) hypertension ECG 12 lead EKG Today D64.9 - Anemia, unspecified, E66.9 - Obesity, unspecified, I10 - Essential (primary) hypertension Complete Blood Count Auto Diff Today D64.9 - Anemia, unspecified, E66.9 - Obesity, unspecified, I10 - Essential (primary) hypertension IRON PROFILE Today D64.9 - Anemia, unspecified, E66.9 - Obesity, unspecified, I10 - Essential (primary) hypertension Comprehensive Met. Panel Today D64.9 - Anemia, unspecified, E66.9 - Obesity, unspecified, I10 - Essential (primary) hypertension Vitamin B12 and Folate Today D64.9 - Anemia, unspecified, E66.9 - Obesity, unspecified, I10 - Essential (primary) hypertension Zinc Today D64.9 - Anemia, unspecified, E66.9 - Obesity, unspecified, I10 - Essential (primary) hypertension Ferritin Today D64.9 - Anemia, unspecified, E66.9 - Obesity, unspecified, I10 - Essential (primary) hypertension XR chest 2V Today D64.9 - Anemia, unspecified, E66.9 - Obesity, unspecified, I10 - Essential (primary) hypertension FL upper GI w air Today D64.9 - Anemia, unspecified, E66.9 - Obesity, unspecified, I10 - Essential (primary) hypertension Referrals Behavioral Health Referral D64.9 - Anemia, unspecified, E66.9 - Obesity, unspecified, I10 - Essential (primary) hypertension
[2023-11-11 15:07] VITALS: BP 181/82; PULSE 96; TEMP 36.6; O2SAT 99; BMI 39.2
== END 2023-11-11 15:45 | disposition home or self-care (01) ==
PROVIDERS: PCP Student in an Organized Health Care Education/Training Program; Visit Provider Physician Assistant Surgical
DX: E66.9 Obesity, unspecified (principal); Z68.39 Body mass index [BMI] 39.0-39.9, adult
CPT/HCPCS: 99205

== ENCOUNTER → 2023-11-11 14:56 | Outpatient (BNVA) | payer OTHER, SELFPAY | PROVIDERS: PCP Student in an Organized Health Care Education/Training Program; Visit Provider Physician Assistant Surgical | DX: E66.9 Obesity, unspecified (principal); Z68.39 Body mass index [BMI] 39.0-39.9, adult | CPT/HCPCS: 99202 ==

== ENCOUNTER 2023-12-05 07:34 | Outpatient (REF) | payer OTHER, SELFPAY ==
--- NOTE | ~2023-12-05 | US_ITS ---
EXAMINATION: US COMPLETE ABDOMEN WITH LIVER ELASTOGRAPHY CLINICAL INFORMATION: Hypertension and obesity. COMPARISON: CT lumbar spine 03/31/2023. TECHNIQUE: Real-time imaging of the abdominal viscera. Noninvasive ultrasound liver fibrosis assessment is performed using Avis ElastPQ point quantification shear wave elastography (pSWE) with a C5-2 MHz transducer. Multiple elastography samples are obtained. FINDINGS: PANCREAS: The visualized pancreatic head and body are normal in appearance. The remainder of the pancreas is obscured from visualization by the overlying bowel gas. ABDOMINAL AORTA: The proximal, middle, and distal aortic segments are normal in caliber. INFERIOR VENA CAVA: Visualized portions are normal. LIVER: The liver demonstrates normal size, contour and echogenicity. No focal lesion or intrahepatic biliary duct dilatation. The right lobe measures 17.0 cm in length. The left lobe measures 12.8 cm in length. Portal flow is towards the liver (hepatopetal). Shear wave liver elastography median stiffness is 1.52 m/s (reference: normal median stiffness is 1.3 m/s or less). IQR/median stiffness to assess sampling precision is 0.07 (reference: good quality data set is IQR/median stiffness of 0.15 or less). GALLBLADDER: Normal. The gallbladder is physiologically distended without evidence of stones, sludge, polyps, wall thickening or pericholecystic fluid. COMMON BILE DUCT: Normal in caliber measuring 0.4 cm in diameter. RIGHT KIDNEY: Normal. No hydronephrosis. No renal calculi or focal parenchymal lesions. The kidney measures 11.8 cm in maximum dimension. LEFT KIDNEY: Normal. No hydronephrosis. No renal calculi or focal parenchymal lesions. The kidney measures 11.9 cm in maximum dimension. SPLEEN: Normal. The spleen measures 11.3 cm in maximum dimension. FREE FLUID: None. US/US abdomen comp w elastography IMPRESSION: 1. Normal-appearing liver. 2. Liver elastography: In the absence of other known clinical signs, measurements rule out compensated advanced chronic liver disease. If there are known clinical signs, further testing may be needed for confirmation. REFERENCE: Society of Radiologists in Ultrasound Liver Stiffness Thresholds (2020): LIVER STIFFNESS THRESHOLDS: *Liver Stiffness equal or less than 1.3 m/s: High probability of being normal. *Liver Stiffness less than 1.7 m/s: In the absence of other known clinical signs, rules out compensated advanced chronic liver disease. *Liver Stiffness 1.7-2.1 m/s: Suggestive of compensated advanced chronic liver disease but need further test for confirmation. *Liver Stiffness over 2.1 m/s: Rules in compensated advanced chronic liver disease. *Liver Stiffness over 2.4 m/s: Suggestive of clinically significant portal hypertension. QUALITY OF DATA SET: *IQR/Median value equal or less than 0.15 implies a quality data set. *IQR/Median value over 0.15 implies a poor quality data set. SIGNIFICANT CHANGE FROM PRIOR EXAM: Significant change if liver stiffness measurement is 10% or greater from prior exam. OTHER CONSIDERATIONS: The stage of liver fibrosis may be overestimated in the setting of acute hepatitis, liver inflammation, elevated liver function tests, hepatic vascular congestion, obstructive cholestasis, non-fasting state, and infiltrative diseases such as amyloidosis and lymphoma. In some patients with NAFLD, the liver stiffness thresholds for compensated advanced chronic liver disease may be lower. In causes other than viral hepatitis and NAFLD, liver stiffness thresholds are not well established. Electronically signed by: Eusebio Johnson MD 12/22/2023 09:56 PM EDT
--- NOTE | ~2023-12-05 | XR_ITS ---
EXAMINATION: XR CHEST CLINICAL INFORMATION: Primary hypertension. COMPARISON: None available. TECHNIQUE: 2 views of the chest were obtained. FINDINGS: No focal consolidation, pleural effusion or pneumothorax. Normal appearance of the cardiomediastinal silhouette. No acute osseous findings. Visualized upper abdomen is within normal limits. XR/XR chest 2V IMPRESSION: No acute cardiopulmonary findings. Electronically signed by: Rosalina Mccarthy MD 12/29/2023 12:05 PM EDT
--- NOTE | 2023-12-05 08:43 | ECG_ITS ---
Test Reason : htn Blood Pressure : / mmHG Vent. Rate : 068 BPM Atrial Rate : 068 BPM P-R Int : 188 ms QRS Dur : 076 ms QT Int : 400 ms P-R-T Axes : 067 044 025 degrees QTc Int : 425 ms Normal sinus rhythm Normal ECG No previous ECGs available Referred By: Leroy Gilliland Electronically Signed By:RADHA BENSON
[2023-12-05 08:55] LABS: MANUAL DIFF FLAG NO
[2023-12-05 09:27] LABS: Basophils Percent Auto 0.2 % (0-2); Eosinophils Absolute Auto 0.1 X10*3/uL (0.0-0.4); Eosinophils Percent Auto 1.5 % (0-4); Hematocrit 35.5 % (37.0-47.0); Hemoglobin 10.7 g/dl (12.0-16.0); Imm Gran Abs Auto 0.02 X10*3/uL (0.00-0.03); Imm Gran Pct Auto 0.2 % (0.0-0.4); Lymphocytes Absolute Auto 2.7 X10*3/uL (1.2-4.9); Lymphocytes Percent Auto 33.3 % (20-40); Mean Corpuscular HGB Conc 30.1 g/dl (31.0-35.0); Mean Corpuscular Hemoglobin 22.7 pg (27.0-33.0); Mean Corpuscular Volume 75.4 fL (80.0-98.0); Mean Platelet Volume 9.7 fL (9.4-12.3); Monocytes Absolute Auto 0.5 X10*3/uL (0.1-1.2); Neutrophils Absolute Auto 4.8 x10*3/uL (2.0-8.3); Neutrophils Percent Auto 58.8 % (45-73); Platelet Count 336 X10*3/uL (160-400); Red Blood Count 4.71 X10*6/uL (4.20-5.50); Red Cell Distribution Width 16.2 % (11.0-16.0); White Blood Count 8.2 X10*3/uL (4.8-10.8)
[2023-12-05 09:38] LABS: Estimated Average Glucose 126 mg/dL
[2023-12-05 10:31] LABS: Alanine Aminotransferase 14 U/L (0-31); Alkaline Phosphatase 63 U/L (39-117); Anion Gap 10 (12-20); Aspartate Amino Transferase 15 U/L (5-31); Bilirubin Total 0.2 mg/dL (0.0-1.0); Blood Urea Nitrogen 15 mg/dL (9-16); C Reactive Protein 0.16 mg/dL (< or = 0.50); Calcium 9.5 mg/dL (8.4-10.2); Carbon Dioxide 28 mmol/L (22-29); Chloride 104 mmol/L (96-108); Cholesterol 190 mg/dL (<200); Estimated Glomerular Filt Rate > 60; Glucose Random 106 mg/dL (60-115); HDL Cholesterol 39 mg/dL (>40); Iron 23 mcg/dL (30-160); LDL Cholesterol Calculated 117 mg/dL (<100); Percent Iron Saturation 6 % (15-50); Sodium 138 mmol/L (135-145); Total Iron Binding Capacity 398 mcg/dL (228-428); Total Protein 7.5 g/dL (6.5-8.0); Triglycerides 174 mg/dL (<150); Unsaturated Iron Binding 375 ug/dL
[2023-12-05 10:43] LABS: Folate 11.6 ng/mL (> or = 4.0); Vitamin B12 666 pg/mL (200-900)
[2023-12-05 10:56] LABS: Ferritin 7 ng/mL (10-250); Insulin 15 uU/mL (2-29); TSH reflex Free T4 0.99 uIU/mL (0.32-4.0); Vitamin D 25-OH Total 31.6 ng/mL (>30)
[2023-12-08 04:28] LABS: Zinc 74 mcg/dL (60-130)
[2023-12-09 18:53] LABS: Vitamin A 60 mcg/dL (38-98)
[2023-12-12 06:24] LABS: Vitamin B1 10 nmol/L (8-30)
== END 2023-12-05 07:35 | disposition home or self-care (01) ==
LOC: HO.US 07:34
PROVIDERS: PCP Internal Medicine; Visit Provider Physician Assistant Surgical
DX: I10 Essential (primary) hypertension (principal); D64.9 Anemia, unspecified; E66.9 Obesity, unspecified
CPT/HCPCS: 36415; 71046; 76700; 76981; 80053; 80061; 82306; 82607; 82728; 82746; 83036; 83525; 83540; 84425; 84443; 84590; 84630; 85025; 86140; 93005

== ENCOUNTER → 2023-12-28 09:00 | Outpatient (BNVA) | payer OTHER, SELFPAY | PROVIDERS: PCP Internal Medicine; Visit Provider Counselor Mental Health ==

== ENCOUNTER → 2024-01-18 09:19 | Outpatient (BNVA) | payer OTHER, SELFPAY | PROVIDERS: PCP Internal Medicine; Visit Provider Counselor Mental Health ==

== ENCOUNTER 2024-01-26 11:28 | Day surgery (SDC) | payer OTHER, SELFPAY ==
--- NOTE | 2024-01-24 14:08 | HO.ANESPROP2 ---
Documented by User: Neyda Benz NP 01/24/24 14:09 HPI - Anesthesia Eval Consult details Narrative: 43yo F for Upper Endoscopy PMFSH Active Problems Active Problems: All Active Problems Iron (Fe) deficiency anemia (Acute) Screening for cervical cancer (Acute) Blurry vision (Acute) Class 2 obesity with body mass index (BMI) of 37.0 to 37.9 in adult (Acute) Essential hypertension (Acute) Status post fall (Acute) Headache (Acute) Class 2 obesity with body mass index (BMI) of 38.0 to 38.9 in adult (Acute) Anemia (Acute) Breast lump (Acute) Breast pain (Acute) Onychogryposis (Acute) Encounter for physical examination (Acute) Post-COVID chronic cough (Acute) Polyarthralgia (Acute) Pseudoangiomatous stromal hyperplasia of breast (Acute) Abnormal ultrasound of breast (Acute) Hand numbness (Acute) Asthma (Acute) Back pain (Acute) Chronic fatigue (Acute) Body mass index (BMI) of 37.0-37.9 in adult (Acute) Obesity (BMI 30-39.9) (Acute) Past Medical History Medical History Lumbar transverse process fracture Polyarthralgia Hand numbness Chronic fatigue Back pain Hypertension Asthma Family History Family History Father Cardiac murmur CVD (cardiovascular disease) Mother Diabetes Hypertension Sister No problems noted. Brother No problems noted. Brother No problems noted. Brother No problems noted. Family history of problems with anesthesia: No Surgical History Surgical History H/O right breast biopsy History of Problems with Anesthesia: No Social History Social History Housing: Apartment Alcohol intake: current Alcohol intake frequency: holidays/special occasions only Alcohol type: beer Patient Tobacco Use Status: Never used Tobacco e-Cigarette/Vaping Use: Never Used Second Hand Smoke Exposure: No Advance Directives: No Advance Directives Information Provided: Yes service: No Current occupational status: employed Current occupational exposures/hazards: No Cognitive needs: No Hearing needs: No Vision needs: Yes Meds Allergies Allergy/AdvReac Type Severity Reaction Status Date / Time grass pollen Allergy Intermediate shorness Verified 11/11/23 15:00 of breath, itchy throat, itch Home Medications ?Medication ?Instructions ?Recorded ?Confirmed ?Last Taken ?Type hydrochlorothiazide 12.5 mg tablet 12.5 mg PO DAILY 11/11/23 11/11/23 Unknown History Assessment and Plan Assessment Anesthesia Assessment: Chart Reviewed Final Anesthetic Review Family History of Problems with Anesthesia: No History of Problems with Anesthesia: No Documented by User: Omayra Maurer MD 01/26/24 11:46 PMFSH Past Medical History Medical History Lumbar transverse process fracture Polyarthralgia Hand numbness Chronic fatigue Back pain Hypertension Asthma Family History Family History Father Cardiac murmur CVD (cardiovascular disease) Mother Diabetes Hypertension Sister No problems noted. Brother No problems noted. Brother No problems noted. Brother No problems noted. Surgical History Surgical History H/O right breast biopsy Social History Social History Housing: Apartment Alcohol intake: current Alcohol intake frequency: holidays/special occasions only Alcohol type: beer Patient Tobacco Use Status: Never used Tobacco e-Cigarette/Vaping Use: Never Used Second Hand Smoke Exposure: No Advance Directives: No Advance Directives Information Provided: Yes service: No Current occupational status: employed Current occupational exposures/hazards: No Cognitive needs: No Hearing needs: No Vision needs: Yes Meds Allergies Allergy/AdvReac Type Severity Reaction Status Date / Time grass pollen Allergy Intermediate shorness Verified 11/11/23 15:00 of breath, itchy throat, itch Home Medications ?Medication ?Instructions ?Recorded ?Confirmed ?Last Taken ?Type hydrochlorothiazide 12.5 mg tablet 12.5 mg PO DAILY 11/11/23 11/11/23 Unknown History Exam Airway Mallampati Class: III TM Dist: >3cm Neck ROM: Full Heart: rrr Lungs: cta Assessment and Plan Assessment Anesthesia Assessment: Anesthesia Plan Discussed Final Anesthetic Review NPO: Yes ASA Class: III Final Preanesthetic Review: No Changes in Pt Med Stat, Meds/Allgs Chart Reviewed, Consent Obtained/Reviewed and Anes Risks/Benef Reviewed Patient Risk: Intermediate Procedure Risk: Low Anesthetic Plan Anesthetic Plan: MAC:
[2024-01-26 12:00] VITALS: BMI 35.0
[2024-01-26 12:07] VITALS: BP 155/86; PULSE 69; RESP 16; TEMP 36.4; O2SAT 99
--- NOTE | 2024-01-26 12:18 | P.HPSUR_ITS ---
Pre-Procedural Eval Section A - 24 Hr Update-Section A only Date of Service: 01/26/24 The patient is an INPATIENT: No The patient has been examined within 24 hours of the surgical procedure. The History & Physical has been completed within 30 days and I have reviewed it.: Yes Section B - Complete if H&P > 30 days Chief Complaint: Morbid (severe) obesity due to excess calories Details of Present Illness: Anemia Relevant Family History (Specify if Yes): No Relevant Social History: None Present Medications: None Medical History: No relevant PMH History of Previous Operations: No relevant previous surgery Allergies: Allergies Allergy/AdvReac Type Severity Reaction Status Date / Time grass pollen Allergy Intermediate shorness Verified 01/26/24 11:58 of breath, itchy throat, itch Review of Systems Sugical H&P ROS: Negative: Constitution, Cardiovascular, Respiratory, Neurological, Psychiatric, Hem-Onc, Allergic/Immunologic, Gastrointestinal, Genitourinary, Musculoskeletal, Integumentary, Endocrine and Eyes/Ears/Nose/Throat Exam Surgical H&P Exam: Normal: HEENT, Normal: Heart, Normal: Lungs, Normal: Extremi ties, Normal: Abdomen, Normal: Skin and Normal: Neurological Plan Diagnosis/Plan: Unchanged (EGD to assess etiology of anemia. Risks of bleeding and perforation were discussed with the patient and she is in agreement with the plan.) I have reviewed the history and physical and performed a pertinent physical examination on my patient. No changes have occurred unless specified. Time Spent With Patient Time: Total time managing care of this patient today ____ minutes.
[2024-01-26] MEDS: Lactated Ringers 1,000 ML 80 ML IVCONT (12:20)
--- NOTE | 2024-01-26 12:24 | PM.OP ---
Brief Operative Note Date of Service: 01/26/24 Pre-op diagnosis: Anemia Post-op diagnosis: same Procedure: PROCEDURE DATE: 01/26/2024 PREOPERATIVE DIAGNOSIS: Anemia POSTOPERATIVE DIAGNOSIS: ?Same as above. 1) 3cm hiatal hernia PROCEDURE: [id number] with biopsies Surgeon: Araseli Bautista M.D.. Ph.D. Brown Stock Washer: None ? Anesthesia: IV sedation Estimated blood loss: ?Minimal FINDINGS AND PROCEDURE: ? OPERATIVE INDICATIONS: ?The patient is a 43 year old female known to me who is interested in bariatric surgery. The patient has anemia. Based on this information I recommended an upper endoscopy to evaluate the patient's symptoms. Risks and complications of the surgery were discussed with the patient in advance particularly the possibility of perforation or bleeding that may require surgical intervention. The patient understood the risks and was in agreement with the plan. ? PROCEDURE: After informed consent was obtained by the patient, the patient was ?transferred to the Operating Room and was placed in the supine position.? After successful induction of IV sedation, a mouth block was inserted and the patient was placed in the left lateral decubitus position. An upper endoscopy was performed next, the oropharynx and esophagus appeared within the normal limits. There was a 3cm hiatal hernia. The z-line was smooth. Two biopsies were obtained from the distal esophagus 2-3 cm proximal to the GE junction and two additional biopsies from the GE junction. The stomach was entered and it appeared to be of normal size. There was no gastritis. There was no stricture or ulcer. A biopsy was obtained from the gastric fundus and antrum. No significant bleeding was noted from any of the biopsy sites. Retroflexion of the scope confirmed the presence of a small diaphragmatic hernia. The scope was then advanced into the duodenum which appeared to be normal as well. At that point the duodenum ?and the stomach were decompressed and the scope was withdrawn from the patient's mouth. The patient extubated and was transferred in stable condition to the Recovery Room for further care. I was present and performed all steps of the procedure. There were no residents to assist with this case. Rios Bautista M.D., Ph.D. Surgeon: Jonas Bautista MD Anesthesia: MAC Was an Brown Stock Washer used for this Procedure?: No Estimated blood loss (mL): 0 IV fluids (mL): 400 Urine output (mL): 0 (No Costello to record output) Pathology: other (1) antrum x1, 2) fundus x1, 3) GE junction x2, 4) distal esophagus x2) Condition: stable Disposition: PACU
[2024-01-26 12:30] LABS: UPreg QC Valid YES; Urine Pregnancy NEGATIVE (NEGATIVE)
[2024-01-26 14:15] VITALS: BP 170/96; PULSE 103; RESP 14; TEMP 37.2; O2SAT 98
[2024-01-26 14:20] VITALS: BP 160/94; PULSE 97; RESP 16; O2SAT 100
[2024-01-26 14:25] VITALS: BP 154/90; PULSE 91; RESP 16; O2SAT 99
[2024-01-26 14:30] VITALS: BP 158/91; PULSE 88; RESP 16; O2SAT 99
[2024-01-26 14:45] VITALS: BP 150/82; PULSE 78; RESP 16; TEMP 37.2; O2SAT 100
== END 2024-01-26 15:09 | disposition home or self-care (01) ==
PROVIDERS: Nurse Practitioner; PCP Internal Medicine; Visit Provider Surgery
PROC: 0DJ08ZZ Inspection of Upper Intestinal Tract, Via Natural or Artificial Opening Endoscopic (ICD-10-PCS; CPT 43235; principal; 2024-01-26 12:50)
DX: D64.9 Anemia, unspecified (principal); E66.01 Morbid (severe) obesity due to excess calories; Z68.39 Body mass index [BMI] 39.0-39.9, adult; B96.81 Helicobacter pylori [H. pylori] as the cause of diseases classified elsewhere; K44.9 Diaphragmatic hernia without obstruction or gangrene; I10 Essential (primary) hypertension; R53.82 Chronic fatigue, unspecified; J45.909 Unspecified asthma, uncomplicated; M54.9 Dorsalgia, unspecified; M25.50 Pain in unspecified joint; R20.0 Anesthesia of skin; Z79.899 Other long term (current) drug therapy
CPT/HCPCS: 43239; 81025; 88305; 88313; 88342; J1100; J1596; J2003; J2250; J2704

== ENCOUNTER → 2024-01-26 11:28 | Outpatient (BNV) | payer OTHER, SELFPAY | PROVIDERS: PCP Internal Medicine; Visit Provider Surgery | DX: K44.9 Diaphragmatic hernia without obstruction or gangrene (principal); D64.9 Anemia, unspecified | CPT/HCPCS: 43239 ==

== ENCOUNTER 2024-02-14 14:48 | Outpatient (REF) | payer OTHER, SELFPAY ==
--- NOTE | ~2024-02-14 | MM_ITS ---
EXAMINATION: MM DIAGNOSTIC DIGITAL BREAST TOMOSYNTHESIS, RIGHT US BREAST LIMITED, RIGHT MAMMOGRAPHY: CLINICAL INFORMATION: Diagnostic: For findings seen on screening exam 11/09/2023. A) Evaluate enlarging oval mass at the 2-3 o'clock axis right breast in 43-year-old female with known multiple benign bilateral circumscribed masses with history of prior benign bilateral excisional biopsies and needle biopsy of 6:00 axis right breast mass (PASH). B) Evaluate focus of possible architectural distortion upper outer quadrant right breast with underlying oval masses. -Patient states associated soreness and tenderness associated with these masses in both breasts. COMPARISON: Mammography: 11/09/2023, 08/05/2022, 10/16/2020, 07/15/2020, 03/29/2019. ULTRASOUND: Bilateral 08/05/2022, right breast core biopsy 10/16/2020, bilateral 09/02/2020, and 03/29/2019. TECHNIQUE: Digital breast tomosynthesis is performed in the following views: 3-D spot compression right CC x2 and right ML x3 views were obtained. Computer-aided diagnosis was used for this study. This was followed by targeted right breast ultrasound. FINDINGS: The breasts are heterogeneously dense, which may obscure small masses (ACR BI-RADS breast composition Category c). Spot compression views demonstrate numerous circumscribed masses throughout the right breast, which the 2-3 o'clock axis mass is slightly enlarged by approximately 1 cm compared with prior exams. This is undoubtedly the underlying pathology as previously elucidated. In the upper outer right breast there is mild architectural distortion, in the region of previous benign excisional biopsy, findings consistent with post operative scarring. This is benign and no further follow-up recommended. We will evaluate these 2 areas with ultrasound (right breast upper outer quadrant, and 2-3 o'clock axis). ULTRASOUND: CLINICAL INFORMATION: As above. COMPARISON: As above. TECHNIQUE: Targeted sonographic evaluation was performed using a high frequency linear transducer. Attention was given to the 2-3 o'clock axis right breast, and upper outer quadrant breast. Selected archived documentation. FINDINGS: RIGHT BREAST: In the upper outer quadrant of the right breast, interposed amidst benign circumscribed masses, there is a focus of nonvascular linear shadowing consistent with postoperative scarring. This correlates well with the finding on mammography, which has remained stable from priors. The 2:00 axis right breast, there is a hypoechoic mass with small cystic foci peripherally measuring 5.3 x 2.6 x 5.0 cm (previously measuring 4.0 x 2.0 x 4.0 cm on 08/05/2022), mildly enlarging. Otherwise, there are stable numerous circumscribed oval partially cystic and solid masses, similar to the prior exam. Biopsy clip seen in the 7:00 axis mass, stable from previous. There are no suspicious abnormalities. MM/MM tomosynthesis added views R IMPRESSION: 1) There are no findings suspicious for malignancy in the right breast. 2) Numerous stable circumscribed solid and partially solid and cystic masses throughout the right breast, in keeping with the known benign entities. 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 The 2:00 axis mass has increased in size, and many are slightly larger than on prior exams. 3) Similar postoperative scarring in the upper outer quadrant right breast, benign. -Given the above findings and continued patient discomfort, surgical consultation with a breast specialist is recommended for further management. OVERALL ASSESSMENT: Mammography: BI-RADS 2 - Benign Findings Ultrasound: BI-RADS 2 - Benign Findings RECOMMENDATION: 1. Patient should be managed based on the clinical impression. 2. Otherwise, routine annual screening mammography. This patient's information was entered into a reminder system with a target due date for their next mammogram. Electronically signed by: Kam Robledo MD 02/14/2024 04:25 PM EDT
== END 2024-02-14 14:49 | disposition home or self-care (01) ==
LOC: HO.MAMMO 14:48
PROVIDERS: PCP Internal Medicine; Visit Provider Internal Medicine
DX: N64.89 Other specified disorders of breast (principal)
CPT/HCPCS: 76642; 77061; 77065

== ENCOUNTER → 2024-02-14 15:00 | Outpatient (BNV) | payer OTHER, SELFPAY | PROVIDERS: PCP Internal Medicine; Visit Provider Radiology Diagnostic Radiology | DX: R92.8 Other abnormal and inconclusive findings on diagnostic imaging of breast (principal) | CPT/HCPCS: 76642; 77061; 77065 ==

== ENCOUNTER 2024-02-21 16:33 | Outpatient (AMB) | payer OTHER, SELFPAY ==
--- NOTE | 2024-02-21 16:45 | MHC.PC.OV ---
Vital Signs 02/21/24 16:50 02/21/24 17:55 Height 5 ft 5 in Weight 231 lb BMI 38.4 BP 152/100 H 150/90 H Blood Pressure Location Lt brachial Lt brachial Position Sitting Sitting Intake Visit Reasons: anemia- see comm Intake Note: Patient here for a follow up Anemia Electrical Intern Required: No Accompanied by: Significant Other Allergies grass pollen Allergy (Intermediate, Verified 02/21/24 17:02) shorness of breath, itchy throat, itch Medication List - Last Reconciled 02/21/24 by Val Rodriguez MD epinephrine 0.3 mg (0.3 mL) IM DIRECTED PRN 30 days iron,carbonyl-vitamin C 65 mg iron- 125 mg (Vitron-C) 1 tab PO DAILY 90 days losartan 25 mg PO DAILY 90 days Ventolin HFA 90 mcg/actuation (albuterol sulfate) 2 puffs inhalation Q6H PRN 30 days NS Tobacco use date assessed: 08/17/23 Dental Screening Dental Screen Date: 08/17/23 Did you have a dental visit in the last 12 months?: No Did you have a dental problem in the last 6 months where you did not have access to dental care?: No Was dental information given to patient?: Patient has dentist HPI HPI Comments History of Present Illness Details This is a 43-year-old female with iron-deficiency anemia, hypertension, asthma and obesity that comes today accompanied by significant other for follow-up on her conditions. Hemoglobin will be order. Blood pressure elevated and I will increase losartan from 25 mg to 50 mg. Blood pressure will be recheck in 3 weeks by nurse navigator. She use rescue inhaler less than once a month. She is obese with a BMI of 38.4 and has tried diet and exercise with no significant improvement. I will send her wegovy. No chest pain or shortness on breath. [facility] Medical History (Updated 02/21/24 @ 19:44 by Val Rodriguez MD) Lumbar transverse process fracture Polyarthralgia Hand numbness Chronic fatigue Back pain Hypertension Asthma Surgical History H/O breast surgery H/O right breast biopsy Family History Father Cardiac murmur CVD (cardiovascular disease) Mother Diabetes Hypertension Sister No problems noted. Brother No problems noted. Brother No problems noted. Brother No problems noted. Social History Housing: Apartment Are you a primary healthcare social worker to a significant other at home: No Do you presently have visiting nurse or other home services: No Alcohol intake: current Alcohol intake frequency: does not drink Alcohol type: beer Patient Tobacco Use Status: Never used Tobacco e-Cigarette/Vaping Use: Never Used Second Hand Smoke Exposure: No service: No Current occupational status: employed Current occupational exposures/hazards: No Cognitive needs: No Hearing needs: No Vision needs: Yes Questionnaire PHQ-9 Over the last 2 weeks, how often have you been bothered by any of the following problems? 1. Little interest or pleasure in doing things: not at all 2. Feeling down, depressed, or hopeless: not at all 3. Trouble falling or staying asleep, or sleeping too much: not at all 4. Feeling tired or having little energy: not at all 5. Poor appetite or overeating: not at all 6. Feeling bad about yourself - or that you are a failure or have let yourself or your family down: not at all 7. Trouble concentrating on things, such as reading the newspaper or watching television: not at all 8. Moving or speaking so slowly that other people could have noticed. Or the opposite - being so fidgety or restless that you have been moving around a lot more than usual: not at all 9. Thoughts that you would be better off or of hurting yourself in some way: not at all Total score: 0 Depression Screening Interpretation: Negative Depression Screening Done: Yes [id number] - PHQ-9 Billing: Yes Source: Developed by Drs. Anthony Avina, Yanely Valencia, Milton Parker and colleagues, with an educational lisandra from [employer] Thrive Questionnaire Date Thrive assessed: 08/17/23 AUDIT C Alcohol Use Questionnaire (AUDIT-C) 1. How often do you have a drink containing alcohol?: Monthly or less 2. How many drinks containing alcohol do you have on a typical day when you are drinking?: 1 or 2 3. How often do you have six or more drinks on one occasion?: Less than monthly Total Score: 2 Score Reviewed/Action Taken: No KYAW-7 AMB Questionnaire KYAW-7 Date KYAW - 7 assessed: 08/17/23 Source: Developed by Drs. Anthony Avina, Yanely Valencia, Milton Parker and colleagues, with an educational lisandra from [employer]. Review of Systems Const All systems reviewed & are unremarkable except as noted in HPI and below Card Denies chest pain at rest, Denies chest pain with activity, Denies edema, Denies irregular heart rhythm, Denies claudication, Denies dyspnea, Denies dyspnea on exertion, Denies orthopnea, Denies paroxysmal nocturnal dyspnea and Denies slow heart rate Resp Denies cough, Denies dyspnea and Denies dyspnea on exertion Physical exam (Primary Care) Vital Signs: Last Vital Signs BP 152/100 H 02/21/24 16:50 Care Plan Goal for BP management: Increase losartan. Blood pressure goal is equal or less than 130/80. BMI result Body Mass Index 38.4 BMI Assessment/Plan discussion: High BMI High, discussed plan: lifestyle, weight reduction, dietary and physical activity Tobacco/Smoking Status: Tobacco use Status Tobacco use date assessed 08/17/23 02/21/24 16:58 Patient Tobacco Use Status Never used Tobacco 02/21/24 16:58 e-Cigarette/Vaping Use Never Used 02/21/24 16:58 PHQ-9: PHQ-9 Score PHQ-9: Total score 0 02/21/24 17:03 Depression Screening Interpretation: Negative Thrive Assessment: Date of Thrive Assessment Date Thrive assessed 08/17/23 02/21/24 16:58 Resp Effort & Inspection: normal respiratory effort Auscultation: clear to auscultation bilaterally Cardio Jugular venous distension: no JVD Rate: regular rate Rhythm: regular rhythm Heart sounds: S1 normal heart sound present and S2 normal heart sound present Extrem General: Yes full ROM Coding Level of Care Code Est Pt Level 4 (65430) Complex EM visit Add On G2211 Diagnoses Iron (Fe) deficiency anemia D50.9 Essential hypertension I10 Class 2 severe obesity due to excess calories with serious comorbidity and body mass index (BMI) of 38.0 to 38.9 in adult E66.812; E66.01; Z68.38 Serious obesity comorbidity presence: with serious comorbidity Obesity type: due to excess calories Mild persistent asthma without complication J45.30 Asthma severity: mild Asthma persistence: persistent Asthma complication type: uncomplicated Additional Codes PHQ-9 - 33372 - PHQ-9 Billing: Yes ([id number]) Time Spent (min) 21 Assessment & Plan Assessment & Plan (1) Iron (Fe) deficiency anemia: Code(s): D50.9 - Iron deficiency anemia, unspecified Category: Medical Plan: Continue ferrous sulfate. Repeat hemoglobin. (2) Essential hypertension: Code(s): I10 - Essential (primary) hypertension Category: Medical Plan: Increase losartan to 50 mg. Blood pressure goal is equal or less than 130/80. Recheck blood pressure with nurse navigator in 3 weeks. (3) Class 2 obesity with body mass index (BMI) of 38.0 to 38.9 in adult: Code(s): E66.812 - Obesity, class 2; Z68.38 - Body mass index [BMI] 38.0-38.9, adult Category: Medical Qualifiers: Serious obesity comorbidity presence: with serious comorbidity Obesity type: due to excess calories Qualified Code(s): E66.812 - Obesity, class 2; E66.01 - Morbid (severe) obesity due to excess calories; Z68.38 - Body mass index [BMI] 38.0-38.9, adult Plan: Start Wegovy. BMI goal is less than 30. (4) Asthma: Code(s): J45.909 - Unspecified asthma, uncomplicated Category: Medical Qualifiers: Asthma severity: mild Asthma persistence: persistent Asthma complication type: uncomplicated Qualified Code(s): J45.30 - Mild persistent asthma, uncomplicated Plan: Use rescue inhaler prn. Orders: Orders IRON PROFILE Today D64.9 - Anemia, unspecified Vitamin D 25-OH Total Today E55.9 - Vitamin D deficiency, unspecified US renal BI Today I10 - Essential (primary) hypertension Complete Blood Count Auto Diff Today D64.9 - Anemia, unspecified Medications: New losartan 50 mg PO DAILY 90 tabs 0RF 90 days semaglutide (weight loss) (Wegovy) administer weeks 1 through 4 of therapy 0.25 mg (0.5 mL) subcut QWEEK 2 mL 0RF 4 weeks E66.812 - Obesity, class 2, Z68.38 - Body mass index [BMI] 38.0-38.9, adult Refilled Ventolin HFA 90 mcg/actuation (albuterol sulfate) 2 puffs inhalation Q6H PRN 8 grams 2RF shortness of breath or wheezing 30 days NS Discontinued losartan Discontinued Reason: Patient Completed Course 25 mg PO DAILY 90 days 90 tabs 1RF I10 - Essential (primary) hypertension
[2024-02-21 16:50] VITALS: BP 152/100; BMI 38.4
[2024-02-21 17:55] VITALS: BP 150/90
== END 2024-02-21 17:14 | disposition home or self-care (01) ==
LOC: HO.HMCH 16:33
PROVIDERS: PCP Internal Medicine; Visit Provider Internal Medicine
DX: D50.9 Iron deficiency anemia, unspecified (principal); I10 Essential (primary) hypertension; E66.812 Obesity, class 2; E66.01 Morbid (severe) obesity due to excess calories; Z68.38 Body mass index [BMI] 38.0-38.9, adult; J45.30 Mild persistent asthma, uncomplicated

== ENCOUNTER → 2024-02-21 16:33 | Outpatient (BNVA) | payer OTHER, SELFPAY | PROVIDERS: PCP Internal Medicine; Visit Provider Internal Medicine | DX: D50.9 Iron deficiency anemia, unspecified (principal); I10 Essential (primary) hypertension; E66.812 Obesity, class 2; Z68.38 Body mass index [BMI] 38.0-38.9, adult; J45.30 Mild persistent asthma, uncomplicated | CPT/HCPCS: 96127; 99212 ==

== ENCOUNTER 2024-02-28 10:40 | Outpatient (AMB) | payer OTHER, SELFPAY ==
--- NOTE | 2024-02-28 10:41 | MHC.OFFVIS ---
Vital Signs 02/28/24 10:50 Height 5 ft 7 in Weight 233 lb BMI 36.5 BP 145/72 H Blood Pressure Location Lt brachial Position Sitting Pulse 77 Intake Visit Reasons: Bilateral Breast Masses Intake Note: Patient is seen in office for evaluation of breast masses. Pt c/o: has some breast masses around both breast, admits to pain, discharge, redness, warm to the touch, hard lump, pain worse during period, currently on antbx for other issues L. OV: 09/20/22 (surgery, exc, mass) Data Center Project Manager Required: Yes Data Center Project Manager Language: Collection Systems Administrator Services: Data Center Project Manager Present Data Center Project Manager Name: Maggie HORTON Information Interpreted: non-clinical & clinical Metallurgical Tester: Metallurgical Tester Present Accompanied by: Family/Other Allergies grass pollen Allergy (Intermediate, Verified 02/28/24 10:50) shorness of breath, itchy throat, itch HPI Comments Details: 43-year-old female patient returning for re-evaluation of bilateral palpable breast lumps noted on self examination. She reports tenderness with palpation especially in the lower outer quadrants bilaterally. These were initially felt to be fibroadenoma and as they were increasing in size a core biopsy was recommended. She subsequently underwent ultrasound-guided core biopsy on 09/16/2020. 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 Subsequent to this she has developed many new palpable lumps which are extremely painful located bilaterally in multiple quadrants. She is very frustrated as well as concerned about developing cancer with the multiple enlarging masses. A recent mammogram and ultrasound indicated bilateral large circumscribed lesions which have increased in size since her previous studies. She presents today to discuss prophylactic simple mastectomy bilaterally. She is and her family history is negative for breast cancer or other types of cancers. [facility] Medical History Lumbar transverse process fracture Polyarthralgia Hand numbness Chronic fatigue Back pain Hypertension Asthma Surgical History H/O breast surgery H/O right breast biopsy Family History Father Cardiac murmur CVD (cardiovascular disease) Mother Diabetes Hypertension Sister No problems noted. Brother No problems noted. Brother No problems noted. Brother No problems noted. Social History Housing: Apartment Are you a primary care coordinator to a significant other at home: No Do you presently have visiting nurse or other home services: No Alcohol intake: current Alcohol intake frequency: does not drink Alcohol type: beer Patient Tobacco Use Status: Never used Tobacco e-Cigarette/Vaping Use: Never Used Second Hand Smoke Exposure: No service: No Current occupational status: employed Current occupational exposures/hazards: No Cognitive needs: No Hearing needs: No Vision needs: Yes Review of Systems Const Denies chills, Denies fever(s), Denies headache(s) and Denies poor appetite ENT Denies dizziness and Denies headache(s) Card Denies chest pain, Denies rapid heart rate, Denies palpitations and Denies slow heart rate Resp Denies chest congestion, Denies cough, Denies pain on inspiration and Denies wheezing GI Denies abdominal pain, Denies bloating, Denies change in stool character, Denies constipation, Denies diarrhea, Denies nausea, Denies vomiting and Denies hematemesis Denies nipple discharge Musc Denies back pain, Denies arthralgias, Denies joint swelling and Denies numbness Skin/Breast Reports breast swelling, Denies breast skin changes, Reports breast pain, Reports breast mass, Denies change in breast shape, Denies change in pigmentation, Denies nipple discharge, Denies erythema and Denies rash Neuro Denies dizziness, Denies headache(s) and Denies numbness Psych Denies anxiety and Denies depression Endo Denies palpitations Jerrod/Lymph Denies easy bleeding, Denies easy bruising and Denies lymphadenopathy Aller/Immun Denies wheezing Physical Exam Const General: comfortable Nutritional Appearance: well nourished Orientation/consciousness: patient oriented x3 Limitations: no limitations Chest Chest/axillae images: 1. 3 cm palpable mass 2. 2.5 cm palpable mass 3. 2.5 cm palpable mass 4. 2 cm palpable mass 5. 2.5 cm palpable mass Resp Effort & Inspection: normal respiratory effort, no audible wheezes, no cough and no respiratory distress Auscultation: clear to auscultation bilaterally GI Inspection: Yes normal to inspection Skin General skin exam: no rashes or lesions noted Neuro General: patient oriented x3 Extrem General: Yes no clubbing, cyanosis or edema Quality Reporting (2019) Adult ([facility] 138/06/09/68) Smoking risk assessment performed?: Yes Patient Tobacco Use Status: Never used Tobacco Assessment & Plan Assessment & Plan (1) Breast lump: Comment: 06/11/2022 CT chest: Multiple bilateral breast masses with low suspicion features. Screening mammography should be considered. Code(s): N63.0 - Unspecified lump in unspecified breast Category: Medical (2) Pseudoangiomatous stromal hyperplasia of breast: Code(s): N64.89 - Other specified disorders of breast Category: Medical Plan 43-year-old female patient presenting with recurrent and multiple bilateral large breast mass involving multiple quadrants of both breasts. She has undergone numerous biopsies and excisions in the past and continues to develop new bilateral breast lumps making examination extremely difficult. Patient is very frustrated because of the recurring nature enlarged size of the lumps as well as the severe pain associated with the lumps. She has requested bilateral simple mastectomy which certainly seems like an excellent idea given the difficulty in examination with a multiple diffuse lesions. She understands the risks, alternatives and benefits bilateral simple mastectomy and gives her consent for the procedure. This will be performed as a short-stay admit. She is not interested in reconstruction. Coding Level of Care Code Est Pt Level 4 (50936) Diagnoses Breast lump N63.0 Pseudoangiomatous stromal hyperplasia of breast N64.89
[2024-02-28 10:50] VITALS: BP 145/72; PULSE 77; BMI 36.5
== END 2024-02-28 11:04 | disposition home or self-care (01) ==
PROVIDERS: PCP Internal Medicine; Visit Provider Surgery
DX: N63.0 Unspecified lump in unspecified breast (principal); N64.89 Other specified disorders of breast
CPT/HCPCS: 99214

== ENCOUNTER → 2024-02-28 10:40 | Outpatient (BNVA) | payer OTHER, SELFPAY | PROVIDERS: PCP Internal Medicine; Visit Provider Surgery | DX: N63.0 Unspecified lump in unspecified breast (principal); N64.89 Other specified disorders of breast | CPT/HCPCS: 99212 ==

== ENCOUNTER → 2024-03-01 09:10 | Outpatient (BNVA) | payer OTHER, SELFPAY | PROVIDERS: PCP Internal Medicine; Visit Provider Counselor Mental Health ==

== ENCOUNTER → 2024-03-01 09:10 | Outpatient (AMB) | payer OTHER, SELFPAY ==
--- NOTE | 2024-03-01 09:05 | A.OFFWM_ITS ---
Intake Intake Visit Reasons: (TV) BH F/U Allergies grass pollen Allergy (Intermediate, Verified 02/28/24 10:50) shorness of breath, itchy throat, itch PFSH Medical History Lumbar transverse process fracture Polyarthralgia Hand numbness Chronic fatigue Back pain Hypertension Asthma Surgical History H/O breast surgery H/O right breast biopsy Family History Father Cardiac murmur CVD (cardiovascular disease) Mother Diabetes Hypertension Sister No problems noted. Brother No problems noted. Brother No problems noted. Brother No problems noted. Social History Housing: Apartment Are you a primary childcare attendant to a significant other at home: No Do you presently have visiting nurse or other home services: No Alcohol intake: current Alcohol intake frequency: does not drink Alcohol type: beer Patient Tobacco Use Status: Never used Tobacco e-Cigarette/Vaping Use: Never Used Second Hand Smoke Exposure: No service: No Current occupational status: employed Current occupational exposures/hazards: No Cognitive needs: No Hearing needs: No Vision needs: Yes Behavioral Health Assessment Weight Management Therapy Therapy Notes Details Subjective: PT presents frustrated about challenges losing weight. PT was confused about meal plan, this provider helped her accessing [employer] website and obtaining her meal plan. PT has been advised to discuss with provider about it and changes she wants to make in regards having her meal at 7pm instead of 4am. Objective: PT presents for a follow up visit via Telehealth. Discussed functioning and current challenges. Worked in habit building. Psychoeducation about sleep hygiene and setting up a healthy sleep schedule, as currently her sleeps more than recommended as she also wakes up multiple times in between and this is impacting meal schedule. Identified hunger triggers and supported client to commit to a scheduled meal plan, while using alarms and prepare better for her work-day taking only the products she needs to consume. Used CBT-based interventions for behavioral modification to support weight-loss journey. Assessment/Response: * Mental status: mild preoccupied, some frustration. alert, oriented x3. Good functioning. * Risk reported/identified: None. PT was open and active. She needed repetition and multiple explanations but responded well to interventions and received well the recommendations. Food/Weight/Diet Expectations of change Most recent weight: 222Lbs - On Tuesday. New meal plan: 2Hb eggs, 1 shake, 1 bar, dinner 8F/8F - However, PT was not sure about it. Exercise plan: stationary bike and treadmill 5 days at week for 400calories. Assessment & Plan Assessment & Plan (1) Obesity (BMI 30-39.9): Code(s): E66.9 - Obesity, unspecified (2) Adjustment disorder: Code(s): F43.20 - Adjustment disorder, unspecified Qualifiers: Adjustment disorder type: unspecified type Qualified Code(s): F43.20 - Adjustment disorder, unspecified Plan We will follow up in 1 month. Next sathish: 03/29 at 9am, Over the phone. Telehealth Telehealth Telehealth Platform: [facility] Location of provider rendering services: other Location of patient: address on file Patient Identification confirmed using: Name, : Yes Telehealth method: voice only Patient verbally consented to treatment: Yes Patient verbally consented to billing insurance company: Yes Patient informed of any privacy concerns related to visit: Yes Minutes spent on Phone/Video with Pt.: 55 Coding Level of Care Code Established Pt Tele Psytx >53 mins ([id number]) Patient Type Established Diagnoses Obesity (BMI 30-39.9) E66.9 Adjustment disorder, unspecified type F43.20 Adjustment disorder type: unspecified type Time Spent (min) 55
== END ==
PROVIDERS: PCP Internal Medicine; Visit Provider Counselor Mental Health
DX: E66.9 Obesity, unspecified (principal); F43.20 Adjustment disorder, unspecified
CPT/HCPCS: 90837

== ENCOUNTER 2024-03-19 07:48 | Outpatient (REF) | payer OTHER, SELFPAY ==
[2024-03-19 08:01] LABS: MANUAL DIFF FLAG NO
[2024-03-19 08:26] LABS: Basophils Percent Auto 0.4 % (0-2); Eosinophils Absolute Auto 0.2 X10*3/uL (0.0-0.4); Eosinophils Percent Auto 2.2 % (0-4); Hematocrit 40.7 % (37.0-47.0); Hemoglobin 12.3 g/dl (12.0-16.0); Imm Gran Abs Auto 0.01 X10*3/uL (0.00-0.03); Imm Gran Pct Auto 0.1 % (0.0-0.4); Lymphocytes Percent Auto 39.7 % (20-40); Mean Corpuscular HGB Conc 30.2 g/dl (31.0-35.0); Mean Corpuscular Hemoglobin 23.7 pg (27.0-33.0); Mean Corpuscular Volume 78.3 fL (80.0-98.0); Mean Platelet Volume 9.6 fL (9.4-12.3); Monocytes Absolute Auto 0.4 X10*3/uL (0.1-1.2); Monocytes Percent Auto 5.5 % (2-11); Neutrophils Absolute Auto 3.9 x10*3/uL (2.0-8.3); Neutrophils Percent Auto 52.1 % (45-73); Platelet Count 337 X10*3/uL (160-400); Red Cell Distribution Width 18.6 % (11.0-16.0); White Blood Count 7.4 X10*3/uL (4.8-10.8)
[2024-03-19 09:01] LABS: Alanine Aminotransferase 19 U/L (0-31); Albumin Level 4.2 g/dL (3.5-5.0); Alkaline Phosphatase 63 U/L (39-117); Anion Gap 11 (12-20); Aspartate Amino Transferase 27 U/L (5-31); Bilirubin Total 0.3 mg/dL (0.0-1.0); Blood Urea Nitrogen 21 mg/dL (9-16); Calcium 9.2 mg/dL (8.4-10.2); Carbon Dioxide 27 mmol/L (22-29); Chloride 105 mmol/L (96-108); Cholesterol 189 mg/dL (<200); Estimated Glomerular Filt Rate > 60; Glucose Fasting 103 mg/dL (60-99); HDL Cholesterol 39 mg/dL (>40); Iron 57 mcg/dL (30-160); LDL Cholesterol Calculated 103 mg/dL (<100); Percent Iron Saturation 17 % (15-50); Potassium 4.4 mmol/L (3.3-5.1); Sodium 139 mmol/L (135-145); Total Iron Binding Capacity 341 mcg/dL (228-428); Total Protein 7.6 g/dL (6.5-8.0); Triglycerides 239 mg/dL (<150); Unsaturated Iron Binding 284 ug/dL
[2024-03-19 09:16] LABS: Vitamin D 25-OH Total 25.9 ng/mL (>30)
[2024-03-19 09:33] LABS: Folate 12.4 ng/mL (> or = 4.0)
[2024-03-19 09:53] LABS: Vitamin B12 757 pg/mL (200-900)
== END 2024-03-19 07:49 | disposition home or self-care (01) ==
LOC: HO.LAB 07:48
PROVIDERS: PCP Internal Medicine; Visit Provider Internal Medicine
DX: Z00.00 Encounter for general adult medical examination without abnormal findings (principal); D64.9 Anemia, unspecified; E78.5 Hyperlipidemia, unspecified; E53.8 Deficiency of other specified B group vitamins; E55.9 Vitamin D deficiency, unspecified
CPT/HCPCS: 36415; 80053; 80061; 82306; 82607; 82746; 83540; 85025; J1100; J2003; J2250; J2405; J2704; J3010

== ENCOUNTER 2024-03-19 08:16 | Inpatient (IN) | payer OTHER, SELFPAY ==
[2024-03-12 12:17] VITALS: BP 134/70; PULSE 78; RESP 16; O2SAT 100; BMI 37.9
[2024-03-12 13:20] LABS: MANUAL DIFF FLAG NO
[2024-03-12 14:08] LABS: Basophils Percent Auto 0.4 % (0-2); Eosinophils Absolute Auto 0.3 X10*3/uL (0.0-0.4); Eosinophils Percent Auto 3.3 % (0-4); Hematocrit 37.4 % (37.0-47.0); Hemoglobin 11.4 g/dl (12.0-16.0); Imm Gran Abs Auto 0.03 X10*3/uL (0.00-0.03); Imm Gran Pct Auto 0.3 % (0.0-0.4); Lymphocytes Absolute Auto 3.7 X10*3/uL (1.2-4.9); Lymphocytes Percent Auto 39.2 % (20-40); Mean Corpuscular HGB Conc 30.5 g/dl (31.0-35.0); Mean Corpuscular Hemoglobin 23.4 pg (27.0-33.0); Mean Corpuscular Volume 76.8 fL (80.0-98.0); Mean Platelet Volume 9.8 fL (9.4-12.3); Monocytes Absolute Auto 0.5 X10*3/uL (0.1-1.2); Monocytes Percent Auto 5.7 % (2-11); Neutrophils Absolute Auto 4.8 x10*3/uL (2.0-8.3); Neutrophils Percent Auto 51.1 % (45-73); Platelet Count 321 X10*3/uL (160-400); Red Blood Count 4.87 X10*6/uL (4.20-5.50); Red Cell Distribution Width 18.2 % (11.0-16.0); White Blood Count 9.4 X10*3/uL (4.8-10.8)
[2024-03-12 14:57] LABS: Anion Gap 13 (12-20); Blood Urea Nitrogen 17 mg/dL (9-16); Carbon Dioxide 23 mmol/L (22-29); Chloride 106 mmol/L (96-108); Creatinine Clr Calc Pharmacy 103.9; Estimated Glomerular Filt Rate > 60; Glucose Random 98 mg/dL (60-115); Sodium 138 mmol/L (135-145)
--- NOTE | 2024-03-14 12:01 | HO.ANESPROP2 ---
Documented by User: Neyda Benz NP 03/14/24 12:01 HPI - Anesthesia Eval Consult details Narrative: 43yo F for Bilateral Mastectomy Simple PMFSH Active Problems Active Problems: All Active Problems H. 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 pylori) infection Lumbar transverse process fracture Polyarthralgia Hand numbness Chronic fatigue Back pain Hypertension Asthma Family History Family History Father Cardiac murmur CVD (cardiovascular disease) Mother Diabetes Hypertension Sister No problems noted. Brother No problems noted. Brother No problems noted. Brother No problems noted. Family history of problems with anesthesia: No Surgical History Surgical History History of breast lump/mass excision (09/20/22) History of esophagogastroduodenoscopy (EGD) (01/26/24) H/O breast surgery H/O right breast biopsy History of Problems with Anesthesia: No Social History Social History Household Members: Spouse and Family Housing: House Are you a primary farm or ranch animal caretaker to a significant other at home: No Do you presently have visiting nurse or other home services: No Alcohol intake: current Alcohol intake frequency: does not drink Alcohol type: beer Comment: aware of trip hazard Patient Tobacco Use Status: Never used Tobacco e-Cigarette/Vaping Use: Never Used Second Hand Smoke Exposure: No Use of substances other than those prescribed or required for medical reasons: No Have you been hit, kicked, punched, or otherwise hurt by someone within the past year? If so, by whom?: No Are you DNR?: No Advance Directives: No Advance Directives Information Provided: Yes Advance Directives on File: No Recently lost weight without trying: No Nutrition Risks: No Nutritional Risk Patient : No FDLMP: unknown Poor oral hygiene: No (missing one right upper tooth) service: No Current occupational status: employed Current occupational exposures/hazards: No Cognitive needs: No Hearing needs: No Vision needs: Yes Meds Allergies Allergy/AdvReac Type Severity Reaction Status Date / Time environmental allergies Allergy Intermediate SOB, itchy Verified 03/12/24 13:18 throat grass pollen Allergy Intermediate shortness Verified 03/12/24 13:18 of breath, itchy throat, itchy Home Medications ?Medication ?Instructions ?Recorded ?Confirmed ?Last Taken ?Type ferrous sulfate 325 mg (65 mg 325 mg PO DAILY 03/12/24 03/12/24 Unknown History iron) tablet (iron) Exam Height,Weight and Vital Signs: Height 5 ft 5.5 in Weight 104.78 kg Last Vital Signs Pulse 78 03/12/24 12:17 Resp 16 03/12/24 12:17 BP 134/70 03/12/24 12:17 Pulse Ox 100 03/12/24 12:17 O2 Del Method Room Air 03/12/24 12:17 Pertinent Lab Results Pertinent Lab Results: Laboratory Tests 03/12/24 03/12/24 13:08 13:14 WBC 9.4 RBC 4.87 Hgb 11.4 L Hct 37.4 MCV 76.8 L MCH 23.4 L MCHC 30.5 L RDW 18.2 H Plt Count 321 MPV 9.8 Immature Gran % (Auto) 0.3 Neut % (Auto) 51.1 Lymph % (Auto) 39.2 [place] % (Auto) 5.7 Eos % (Auto) 3.3 Baso % (Auto) 0.4 Lymph # (Auto) 3.7 [place] # (Auto) 0.5 Eos # (Auto) 0.3 Baso # (Auto) 0.0 Abs Immat Gran (auto) 0.03 Absolute Neuts (auto) 4.8 Absolute Nucleated RBC 0.000 Nucleated RBC % (auto) 0.0 Sodium 138 Potassium 4.0 Chloride 106 Carbon Dioxide 23 Anion Gap 13 BUN 17 H Creatinine 0.83 Estim Creat Clear Calc 103.9 Estimated GFR > 60 Random Glucose 98 Calcium 9.0 Blood Type O Positive Antibody Screen NEGATIVE Narrative Narrative: EKG 11/2023 Vent. Rate : 068 BPM Atrial Rate : 068 BPM P-R Int : 188 ms QRS Dur : 076 ms QT Int : 400 ms P-R-T Axes : 067 044 025 degrees QTc Int : 425 ms Normal sinus rhythm Normal ECG No previous ECGs available Assessment and Plan Assessment Anesthesia Assessment: Chart Reviewed Final Anesthetic Review Family History of Problems with Anesthesia: No History of Problems with Anesthesia: No Documented by User: Anya Hernandez MD 03/19/24 09:34 [facility] Past Medical History Medical History Anemia Helicobacter pylori (H. pylori) infection Lumbar transverse process fracture Polyarthralgia Hand numbness Chronic fatigue Back pain Hypertension Asthma Family History Family History Father Cardiac murmur CVD (cardiovascular disease) Mother Diabetes Hypertension Sister No problems noted. Brother No problems noted. Brother No problems noted. Brother No problems noted. Surgical History Surgical History History of breast lump/mass excision (09/20/22) History of esophagogastroduodenoscopy (EGD) (01/26/24) H/O breast surgery H/O right breast biopsy History of Problems with Anesthesia: No Social History Social History Household Members: Spouse and Family Housing: House Are you a primary farm or ranch animal caretaker to a significant other at home: No Do you presently have visiting nurse or other home services: No Alcohol intake: current Alcohol intake frequency: does not drink Alcohol type: beer Comment: aware of trip hazard Patient Tobacco Use Status: Never used Tobacco e-Cigarette/Vaping Use: Never Used Second Hand Smoke Exposure: No Use of substances other than those prescribed or required for medical reasons: No Have you been hit, kicked, punched, or otherwise hurt by someone within the past year? If so, by whom?: No Are you DNR?: No Advance Directives: No Advance Directives Information Provided: Yes Advance Directives on File: No Recently lost weight without trying: No Nutrition Risks: No Nutritional Risk Patient : No FDLMP: unknown Poor oral hygiene: No (missing one right upper tooth) service: No Current occupational status: employed Current occupational exposures/hazards: No Cognitive needs: No Hearing needs: No Vision needs: Yes Meds Allergies Allergy/AdvReac Type Severity Reaction Status Date / Time environmental allergies Allergy Intermediate SOB, itchy Verified 03/12/24 13:18 throat grass pollen Allergy Intermediate shortness Verified 03/12/24 13:18 of breath, itchy throat, itchy Home Medications ?Medication ?Instructions ?Recorded ?Confirmed ?Last Taken ?Type ferrous sulfate 325 mg (65 mg 325 mg PO DAILY 03/12/24 03/12/24 Unknown History iron) tablet (iron) Exam Airway Mallampati Class: II TM Dist: >3cm Neck ROM: Full Loose/Missing/Broken Teeth: No Heart: RRR Lungs: CTA Assessment and Plan Final Anesthetic Review History of Problems with Anesthesia: No NPO: Yes ASA Class: II Final Preanesthetic Review: Meds/Allgs Chart Reviewed, Consent Obtained/Reviewed and Anes Risks/Benef Reviewed Patient Risk: Low Procedure Risk: Intermediate Anesthetic Plan Anesthetic Plan: GA Disposition: Standard PACU
[2024-03-19] VITALS (12 sets, daily range): BP systolic 111–140; BP diastolic 59–79; PULSE 69–95; RESP 16–20; TEMP 36.2–36.6; O2SAT 97–100; BMI 40.9; BMI 41.0
[2024-03-19 08:24] LABS: UPreg QC Valid YES; Urine Pregnancy NEGATIVE (NEGATIVE)
[2024-03-19] MEDS: Lactated Ringers 1,000 ML 100 ML IVCONT ×2 (08:43→14:33)
--- NOTE | 2024-03-19 08:44 | MHC.SHP ---
Pre-Procedural Eval Section A - 24 Hr Update-Section A only Date of Service: 03/19/24 The patient is an INPATIENT: No Changes since office visit: Yes Patient answered all questions; No Cold of Flu in the past 2 weeks, No New Medical Problems and No Changes in Medication The patient has been examined within 24 hours of the surgical procedure. The History & Physical has been completed within 30 days and I have reviewed it.: Yes Section B - Complete if H&P > 30 days Chief Complaint: Status Post Bilateral Mastectomy Allergies: Allergies Allergy/AdvReac Type Severity Reaction Status Date / Time environmental allergies Allergy Intermediate SOB, itchy Verified 03/12/24 13:18 throat grass pollen Allergy Intermediate shortness Verified 03/12/24 13:18 of breath, itchy throat, itchy Plan Diagnosis/Plan: Unchanged I have reviewed the history and physical and performed a pertinent physical examination on my patient. No changes have occurred unless specified. Time Spent With Patient Time: Total time managing care of this patient today ____ minutes.
--- NOTE | 2024-03-19 11:20 | PHA.MEDREC ---
Pharmacy Consult ? Medication Reconciliation Pharmacy has reviewed the medication reconciliation done by RN
--- NOTE | 2024-03-19 11:28 | W.PM.OPN ---
Operative Note Operative Note Date of Service: 03/19/24 Narrative: Preoperative diagnosis: Multiple large bilateral breast lumps Postoperative diagnosis: Same Procedure: Bilateral simple mastectomy Surgeon: Rei Acevedo MD Internal Combustion Engine Inspector: Myla Rowe PA-C Anesthesia: General endotracheal Indications for procedure: 43-year-old female with history of multiple previous bilateral breast lumpectomies all of which have been benign presenting with multiple large bilateral breast lumps which seemed to be increasing in size. Patient decided she does not want to continue to have lumpectomies and requested bilateral simple mastectomies. Operative findings: Multiple large bilateral breast lumps in multiple quadrants Specimen: Bilateral mastectomy Estimated blood loss: 25 mL Complications: None Procedure details: Patient was brought to the OR and placed in a supine position. After administering general anesthesia and a bilateral pectoralis block, the breasts were prepped with ChloraPrep and draped in a sterile fashion. A surgical time-out was called the consent confirmed. Patient received preoperative antibiotics and Venodyne boots were in place. Beginning on the left side an elliptical incision to include the nipple extending from the lateral surface of the sternum and extending laterally to just below the axilla was then created with a scalpel. This was then deepened with electrocautery. Beginning in the superior flap the skin flap was dissected up to the undersurface of the clavicle and down to chest wall. The inferior flap was also dissected using electrocautery down to the costal margin and down to chest wall. The breast was then dissected off the chest using electrocautery from medial to lateral and superior to inferior. Hemostasis was assured at all times using electrocautery and free ties of 3-0 Polysorb. A long suture was placed on the lateral margin of the specimen the specimen sent to pathology for further examination. Attention was then directed to the right breast were again elliptical incision was created with a scalpel to include the nipple-areolar complex extending from the lateral surface of the sternum extending laterally to the axilla. This was then deepened using electrocautery into the subcutaneous tissue. Beginning with the superior skin flap again dissection was continued over the margin of the breast extending up towards the clavicle and down to chest wall. The inferior flap was also dissected using electrocautery down to the costal margin and the chest wall. The breast was then dissected off the chest wall beginning medial to lateral and superior to inferior. Hemostasis was assured at all times using electrocautery. Wounds were then irrigated with saline solution and suctioned dry. Wounds were again checked for hemostasis. Two large [place] drains were left on each side and brought out through a separate stab wound. These were connected to bulb suctioned. The drains were secured using a 3-0 nylon suture. Dermis and subcutaneous tissue were then reapproximated using interrupted 3-0 Polysorb sutures. Skin was closed in both incisions using a running subcuticular 4-0 Polysorb suture. Steri-Strips, 4 x 4 gauze and ABD pads were then applied followed by paper tape. The patient tolerated the procedure well. Sponge, instrument, needle counts reported as correct. The patient was transferred to PACU in stable condition.
[2024-03-19] MEDS: ondansetron HCL 4 MG/2 ML VIAL IVPUSH (14:13)
[2024-03-19] MEDS: Acetaminophen 1,000 MG/100 ML PIGGYBACK 400 MG IV ×2 (14:20→19:39)
[2024-03-19] MEDS: HYDROmorphone HCl 0.5 MG/0.5 ML SYRINGE IVPUSH (18:18)
[2024-03-19] MEDS: Prochlorperazine Edisylate 10 MG/2 ML VIAL IVPUSH (18:40)
[2024-03-20] MEDS: Lactated Ringers 1,000 ML 100 ML IVCONT (00:42)
[2024-03-20] MEDS: Acetaminophen 1,000 MG/100 ML PIGGYBACK 400 MG IV ×2 (01:36→07:52)
[2024-03-20 03:47] VITALS: BP 135/62; PULSE 92; RESP 20; TEMP 37; O2SAT 97
[2024-03-20] MEDS: Omeprazole 40 MG CAPSULE.DR PO (05:32)
[2024-03-20 06:27] LABS: MANUAL DIFF FLAG NO
[2024-03-20 06:38] LABS: Basophils Percent Auto 0.1 % (0-2); Hematocrit 26.2 % (37.0-47.0); Hemoglobin 8.1 g/dl (12.0-16.0); Imm Gran Abs Auto 0.04 X10*3/uL (0.00-0.03); Imm Gran Pct Auto 0.4 % (0.0-0.4); Lymphocytes Absolute Auto 2.2 X10*3/uL (1.2-4.9); Lymphocytes Percent Auto 21.1 % (20-40); Mean Corpuscular HGB Conc 30.9 g/dl (31.0-35.0); Mean Corpuscular Volume 77.7 fL (80.0-98.0); Mean Platelet Volume 9.8 fL (9.4-12.3); Monocytes Absolute Auto 0.9 X10*3/uL (0.1-1.2); Monocytes Percent Auto 8.4 % (2-11); Neutrophils Absolute Auto 7.2 x10*3/uL (2.0-8.3); Platelet Count 308 X10*3/uL (160-400); Red Blood Count 3.37 X10*6/uL (4.20-5.50); Red Cell Distribution Width 18.5 % (11.0-16.0); White Blood Count 10.2 X10*3/uL (4.8-10.8)
[2024-03-20] MEDS: 0.9 % Sodium Chloride Flush 3 ML SYRINGE IVFLUSH ×3 (07:57→21:06)
[2024-03-20 08:00] VITALS: BP 131/63; PULSE 87; RESP 17; TEMP 37; O2SAT 97
[2024-03-20] MEDS: Losartan Potassium 50 MG TABLET PO (08:39)
--- NOTE | 2024-03-20 08:43 | PM.PNGS ---
Subjective Subjective Date of Service: 03/20/24 <Myla Rowe PA-C - Last Filed: 03/20/24 08:49> 03/20/24 <Rei Acevedo MD - Last Filed: 03/20/24 10:56> Interval history: Seen with interim controller. Had some difficulty with nausea, vomiting yesterday following the procedure. Now resolved and tolerating liquids. Reports mild pain overnight. Had some dizziness upon getting out of bed the first time. Was able to walk to the bathroom the second time without difficulty. <Myla Rowe PA-C - Last Filed: 03/20/24 08:49> Physical Exam Vital Signs: Vital Signs: Last Vital Signs Temp 98.6 F 03/20/24 08:00 Pulse 87 03/20/24 08:00 Resp 17 03/20/24 08:00 BP 131/63 03/20/24 08:00 Pulse Ox 97 03/20/24 08:00 O2 Del Method Room Air 03/20/24 08:00 O2 Flow Rate 5 03/19/24 11:50 BMI result Body Mass Index 41.0 <Myla Rowe PA-C - Last Filed: 03/20/24 08:49> Const: General: comfortable, no acute distress and alert <JACQUELINE Lane Last Filed: 03/20/24 08:49> Orientation/consciousness: patient oriented x3 <Myla Rowe PA-C - Last Filed: 03/20/24 08:49> Chest: Other: right mastectomy site with fullness of upper flap, flaps viable appearing, some ecchymosis of lateral aspect, sanguineous output in drain left mastectomy site with viable flaps, no fullness, scant sanguineous drainage, incision site clean <Myla Rowe PA-C - Last Filed: 03/20/24 08:49> Resp: Effort & Inspection: normal respiratory effort <JACQUELINE Lane Last Filed: 03/20/24 08:49> Skin: General skin exam: no rashes or lesions noted <JACQUELINE Lane Last Filed: 03/20/24 08:49> Neuro: General: patient oriented x3 and moves all extremities <Myla Rowe PA-C - Last Filed: 03/20/24 08:49> Objective Data Active Medications Albuterol Sulfate (Albuterol Sulfate 90 Mcg 8 Gm Inhaler) 2 puff INHALE RQ6H PRN PRN Reason: shortness of breath or wheezing Calcium Carbonate (Calcium Carbonate 750 Mg Tab.Chew) 750 mg PO Q4H PRN PRN Reason: Heartburn Hydromorphone HCl (Hydromorphone Hcl 0.5 Mg/0.5 Ml Syringe) 0.5 mg IVPUSH Q3H PRN; Protocol PRN Reason: Pain, Severe (Pain Scale 7-10) Last Admin: 03/19/24 18:18 Dose: 0.5 mg Documented By: HARRY Losartan Potassium (Losartan Potassium 50 Mg Tablet) 50 mg PO DAILY [facility]; Protocol Last Admin: 03/20/24 08:39 Dose: 50 mg Documented By: ARUN Magnesium Hydroxide (Milk Of Magnesia 30 Ml Oral.Susp) 30 ml PO DAILY PRN PRN Reason: Constipation Melatonin (Melatonin 3 Mg Tablet) 6 mg PO BEDTIME PRN PRN Reason: Insomnia Naloxone HCl (Naloxone Hcl 0.4 Mg/Ml Vial) 0.04 mg IVPUSH Q5M PRN PRN Reason: Excessive sedation or RR < 8 Omeprazole (Omeprazole 40 Mg Capsule.Dr) 40 mg PO DAILY@0630 [facility] Last Admin: 03/20/24 05:32 Dose: 40 mg Documented By: EMELINA Ondansetron HCl (Ondansetron Hcl 4 Mg/2 Ml Vial) 4 mg IVPUSH Q8H PRN PRN Reason: Nausea and Vomiting Last Admin: 03/19/24 14:13 Dose: 4 mg Documented By: HARRY Oxycodone HCl (Oxycodone Hcl Immed Release 5 Mg Tablet) 5 mg PO Q6H PRN PRN Reason: Pain, Moderate(Pain Scale 4-6) Prochlorperazine Edisylate (Prochlorperazine Edisylate 10 Mg/2 Ml Vial) 10 mg IVPUSH Q6H PRN PRN Reason: Nausea and Vomiting Last Admin: 03/19/24 18:40 Dose: 10 mg Documented By: HARRY Sodium Chloride (0.9 % Sodium Chloride Flush 3 Ml Syringe) 3 ml IVFLUSH QSHIFT [facility] Last Admin: 03/20/24 07:57 Dose: 3 ml Documented By: ARUN <Myla Rowe PA-C - Last Filed: 03/20/24 08:49> Labs CBC & Chem 7: 03/20/24 05:39 03/12/24 13:14 <Myla Rowe PA-C - Last Filed: 03/20/24 08:49> Labs: Laboratory Results - last 24 hr 03/20/24 05:39 MCV 77.7 L MCH 24.0 L MCHC 30.9 L RDW 18.5 H Plt Count 308 MPV 9.8 Immature Gran % (Auto) 0.4 Neut % (Auto) 70.0 Lymph % (Auto) 21.1 [place] % (Auto) 8.4 Eos % (Auto) 0.0 Baso % (Auto) 0.1 Lymph # (Auto) 2.2 [place] # (Auto) 0.9 Eos # (Auto) 0.0 Baso # (Auto) 0.0 Abs Immat Gran (auto) 0.04 H Absolute Neuts (auto) 7.2 Absolute Nucleated RBC 0.000 Nucleated RBC % (auto) 0.0 <Myla Rowe PA-C - Last Filed: 03/20/24 08:49> Procedures Date of Service Date of Service: 03/20/24 <Myla Rowe PA-C - Last Filed: 03/20/24 08:49> 03/20/24 <Rei Acevedo MD - Last Filed: 03/20/24 10:56> Progress Note: A&P Assessment and plan (1) S/P bilateral mastectomy: Status: Acute <Myla Rowe PA-C - Last Filed: 03/20/24 08:49> Assessment and Plan: POD #1 s/p Bilateral simple mastectomy. Has some fullness of right mastectomy site with drop in H/H. Moderate sanguineous output from that drain site. She is hemodynamically stable. Pressure dressing applied. Will repeat H/H later today. Will continue to monitor. Pain control. Encouraged OOB/ambulation with assist. Will remain inpatient for tonight, patient and girlfriend comfortable with plan. <Myla Rowe PA-C - Last Filed: 03/20/24 08:49> POD #1 s/p Bilateral simple mastectomy. Has some fullness of right mastectomy site with drop in H/H. Moderate sanguineous output from that drain site. She is hemodynamically stable. Pressure dressing applied. Will repeat H/H later today. Will continue to monitor. Pain control. Encouraged OOB/ambulation with assist. Will remain inpatient for tonight, patient and comfortable with plan. <Rei Acevedo MD - Last Filed: 03/20/24 10:56> Time Spent With Patient Time: Total time managing care of this patient today ____ minutes. <Myla Rowe PA-C - Last Filed: 03/20/24 08:49> Quality Stroke Does the patient have a stroke diagnosis?: No <Myla Rowe PA-C - Last Filed: 03/20/24 08:49> VTE Prior VTE?: No <Myla Rowe PA-C - Last Filed: 03/20/24 08:49> VTE Risk Level:: Surgical - low <Myla Rowe PA-C - Last Filed: 03/20/24 08:49> VTE Device Contraindication: N/A - Device Ordered <Myla Rowe PA-C - Last Filed: 03/20/24 08:49> VTE Drug Contraindication: Treatment Not Indicated <Myla Rowe PA-C - Last Filed: 03/20/24 08:49>
--- NOTE | 2024-03-20 08:54 | MHC.CM.PN ---
Addendum entered by Rose Morrow 03/20/24 13:48: A new HCP has been documented at the patients request. It has been scanned into the EMR. Copies have been given to the patient. Original Note: S/P ROBB Mastectomy Patient lives with her and kids. She is independent with all functional mobility. A copy of her HCP has been requested. DP home self care. Patients will provide transportation home.
[2024-03-20 13:17] LABS: MANUAL DIFF FLAG NO
[2024-03-20 13:23] LABS: Basophils Percent Auto 0.2 % (0-2); Eosinophils Percent Auto 0.2 % (0-4); Hematocrit 24.3 % (37.0-47.0); Hemoglobin 7.5 g/dl (12.0-16.0); Imm Gran Abs Auto 0.03 X10*3/uL (0.00-0.03); Imm Gran Pct Auto 0.3 % (0.0-0.4); Lymphocytes Absolute Auto 3.3 X10*3/uL (1.2-4.9); Lymphocytes Percent Auto 28.4 % (20-40); Mean Corpuscular HGB Conc 30.9 g/dl (31.0-35.0); Mean Corpuscular Volume 77.9 fL (80.0-98.0); Mean Platelet Volume 9.5 fL (9.4-12.3); Monocytes Percent Auto 8.7 % (2-11); Neutrophils Absolute Auto 7.2 x10*3/uL (2.0-8.3); Neutrophils Percent Auto 62.2 % (45-73); Platelet Count 263 X10*3/uL (160-400); Red Blood Count 3.12 X10*6/uL (4.20-5.50); Red Cell Distribution Width 18.6 % (11.0-16.0); White Blood Count 11.6 X10*3/uL (4.8-10.8)
[2024-03-20 15:28] VITALS: BP 127/62; PULSE 89; RESP 17; TEMP 37.2; O2SAT 100
[2024-03-20 19:45] VITALS: BP 117/57; PULSE 86; RESP 18; TEMP 37.1; O2SAT 100
[2024-03-21] MEDS: HYDROmorphone HCl 0.5 MG/0.5 ML SYRINGE IVPUSH (02:41)
[2024-03-21 04:00] VITALS: BP 119/58; PULSE 78; RESP 18; TEMP 36.8; O2SAT 99
[2024-03-21] MEDS: Omeprazole 40 MG CAPSULE.DR PO (05:37)
[2024-03-21 06:33] LABS: MANUAL DIFF FLAG NO
[2024-03-21 06:47] LABS: Basophils Percent Auto 0.2 % (0-2); Eosinophils Percent Auto 0.4 % (0-4); Hematocrit 23.9 % (37.0-47.0); Hemoglobin 7.2 g/dl (12.0-16.0); Imm Gran Abs Auto 0.05 X10*3/uL (0.00-0.03); Imm Gran Pct Auto 0.4 % (0.0-0.4); Lymphocytes Absolute Auto 3.6 X10*3/uL (1.2-4.9); Lymphocytes Percent Auto 31.9 % (20-40); Mean Corpuscular HGB Conc 30.1 g/dl (31.0-35.0); Mean Corpuscular Hemoglobin 23.8 pg (27.0-33.0); Mean Corpuscular Volume 79.1 fL (80.0-98.0); Monocytes Absolute Auto 0.7 X10*3/uL (0.1-1.2); Monocytes Percent Auto 6.3 % (2-11); Neutrophils Absolute Auto 6.9 x10*3/uL (2.0-8.3); Neutrophils Percent Auto 60.8 % (45-73); Platelet Count 285 X10*3/uL (160-400); Red Blood Count 3.02 X10*6/uL (4.20-5.50); Red Cell Distribution Width 18.8 % (11.0-16.0); White Blood Count 11.4 X10*3/uL (4.8-10.8)
[2024-03-21 07:42] VITALS: BP 113/55; PULSE 82; RESP 18; TEMP 36.7; O2SAT 100
--- NOTE | 2024-03-21 08:18 | PM.PNGS ---
Subjective Subjective Date of Service: 03/21/24 Interval history: Pod 2 following bilateral mastectomy. Swelling in the right breast is improving. Patient reports mild chest pain from incisions. Physical Exam Vital Signs: Vital Signs: Last Vital Signs Temp 98.1 F 03/21/24 07:42 Pulse 82 03/21/24 07:42 Resp 18 03/21/24 07:42 BP 113/55 L 03/21/24 07:42 Pulse Ox 100 03/21/24 07:42 O2 Del Method Room Air 03/21/24 04:00 O2 Flow Rate 5 03/19/24 11:50 BMI result Body Mass Index 41.0 Const: General: comfortable, no acute distress and alert Orientation/consciousness: patient oriented x3 Chest: Other: right mastectomy site with fullness of upper flap, flaps viable appearing, some ecchymosis of lateral aspect, continued sanguineous output in drain left mastectomy site with viable flaps, no fullness, scant sanguineous drainage, incision site clean Resp: Effort & Inspection: normal respiratory effort Skin: General skin exam: no rashes or lesions noted Neuro: General: patient oriented x3 and moves all extremities Objective Data Active Medications Albuterol Sulfate (Albuterol Sulfate 90 Mcg 8 Gm Inhaler) 2 puff INHALE RQ6H PRN PRN Reason: shortness of breath or wheezing Calcium Carbonate (Calcium Carbonate 750 Mg Tab.Chew) 750 mg PO Q4H PRN PRN Reason: Heartburn Hydromorphone HCl (Hydromorphone Hcl 0.5 Mg/0.5 Ml Syringe) 0.5 mg IVPUSH Q3H PRN; Protocol PRN Reason: Pain, Severe (Pain Scale 7-10) Last Admin: 03/21/24 02:41 Dose: 0.5 mg Documented By: JAK Losartan Potassium (Losartan Potassium 50 Mg Tablet) 50 mg PO DAILY [facility]; Protocol Last Admin: 03/20/24 08:39 Dose: 50 mg Documented By: ARUN Magnesium Hydroxide (Milk Of Magnesia 30 Ml Oral.Susp) 30 ml PO DAILY PRN PRN Reason: Constipation Melatonin (Melatonin 3 Mg Tablet) 6 mg PO BEDTIME PRN PRN Reason: Insomnia Naloxone HCl (Naloxone Hcl 0.4 Mg/Ml Vial) 0.04 mg IVPUSH Q5M PRN PRN Reason: Excessive sedation or RR < 8 Omeprazole (Omeprazole 40 Mg Capsule.Dr) 40 mg PO DAILY@0630 [facility] Last Admin: 03/21/24 05:37 Dose: 40 mg Documented By: JAK Ondansetron HCl (Ondansetron Hcl 4 Mg/2 Ml Vial) 4 mg IVPUSH Q8H PRN PRN Reason: Nausea and Vomiting Last Admin: 03/19/24 14:13 Dose: 4 mg Documented By: HARRY Oxycodone HCl (Oxycodone Hcl Immed Release 5 Mg Tablet) 5 mg PO Q6H PRN PRN Reason: Pain, Moderate(Pain Scale 4-6) Prochlorperazine Edisylate (Prochlorperazine Edisylate 10 Mg/2 Ml Vial) 10 mg IVPUSH Q6H PRN PRN Reason: Nausea and Vomiting Last Admin: 03/19/24 18:40 Dose: 10 mg Documented By: HARRY Sodium Chloride (0.9 % Sodium Chloride Flush 3 Ml Syringe) [facility] Last Admin: 03/20/24 21:06 Dose: 3 ml Documented By: JAK Labs 03/21/24 05:53 03/12/24 13:14 Labs: Laboratory Results - last 24 hr 03/20/24 03/21/24 13:11 05:53 MCV 77.9 L 79.1 L MCH 24.0 L 23.8 L MCHC 30.9 L 30.1 L RDW 18.6 H 18.8 H Plt Count 263 285 MPV 9.5 10.0 Immature Gran % (Auto) 0.3 0.4 Neut % (Auto) 62.2 60.8 Lymph % (Auto) 28.4 31.9 [place] % (Auto) 8.7 6.3 Eos % (Auto) 0.2 0.4 Baso % (Auto) 0.2 0.2 Lymph # (Auto) 3.3 3.6 [place] # (Auto) 1.0 0.7 Eos # (Auto) 0.0 0.0 Baso # (Auto) 0.0 0.0 Abs Immat Gran (auto) 0.03 0.05 H Absolute Neuts (auto) 7.2 6.9 Absolute Nucleated RBC 0.000 0.000 Nucleated RBC % (auto) 0.0 0.0 Procedures Date of Service Date of Service: 03/21/24 Progress Note: A&P Assessment and plan (1) S/P bilateral mastectomy: Status: Acute Plan 43-year-old female patient status post bilateral mastectomy. Swelling is improved in the right breast. H and H has stabilized. Will add iron. Continue to monitor flaps. Encouraged out of bed and incentive spirometry. Await pathology results. Time Spent With Patient Time: Total time managing care of this patient today ____ minutes. Quality Stroke Does the patient have a stroke diagnosis?: No VTE Prior VTE?: No VTE Risk Level:: Surgical - low VTE Device Contraindication: N/A - Device Ordered VTE Drug Contraindication: Treatment Not Indicated
[2024-03-21] MEDS: 0.9 % Sodium Chloride Flush 3 ML SYRINGE IVFLUSH ×3 (08:23→20:27)
[2024-03-21] MEDS: Losartan Potassium 50 MG TABLET PO (08:23)
[2024-03-21 08:26] VITALS: O2SAT 100
--- NOTE | 2024-03-21 09:52 | HO.POSTANES ---
Post Anesthesia Evaluation Post Anesthesia Evaluation Date of Service: 03/21/24 Vital Signs: Vital Signs Temp Pulse Resp BP Pulse Ox O2 Del Method 03/21/24 08:26 100 Room Air 03/21/24 07:42 98.1 F 82 18 113/55 L 100 03/21/24 04:00 98.2 F 78 18 119/58 L 99 Room Air Anesthesia: Regional and General Endotracheal-GETA Mental Status: Awake Pain Control: Satisfactory Nausea/Vomiting: None Hydration: Adequate Anesthesia-Related Issues: No Anes. Related Issues
--- NOTE | 2024-03-21 11:48 | MHC.CM.PN ---
POD#2 ROBB Mastectomy. Patient is not cleared for discharge. DP Home with Family support and transport. An early referral has been send to [facility]. Patient may be independent with care. [facility] asked to follow for discharge [facility] may be ordered. Patient's will provide transport home.
[2024-03-21] MEDS: Prochlorperazine Edisylate 10 MG/2 ML VIAL IVPUSH (11:53)
[2024-03-21 15:03] VITALS: BP 129/60; PULSE 86; RESP 18; TEMP 37; O2SAT 99
[2024-03-21] MEDS: Ferrous Sulfate 324 MG TABLET.DR PO (16:42)
[2024-03-21 19:10] VITALS: BP 129/59; PULSE 90; RESP 18; TEMP 36.9; O2SAT 100
[2024-03-22 03:53] VITALS: BP 128/60; PULSE 87; RESP 18; TEMP 36.7; O2SAT 99
[2024-03-22] MEDS: Prochlorperazine Edisylate 10 MG/2 ML VIAL IVPUSH (03:57)
[2024-03-22] MEDS: Omeprazole 40 MG CAPSULE.DR PO (05:30)
[2024-03-22 06:43] LABS: MANUAL DIFF FLAG NO
[2024-03-22 07:01] LABS: Basophils Percent Auto 0.3 % (0-2); Eosinophils Absolute Auto 0.1 X10*3/uL (0.0-0.4); Eosinophils Percent Auto 0.9 % (0-4); Hematocrit 22.2 % (37.0-47.0); Imm Gran Abs Auto 0.05 X10*3/uL (0.00-0.03); Imm Gran Pct Auto 0.5 % (0.0-0.4); Lymphocytes Absolute Auto 4.1 X10*3/uL (1.2-4.9); Lymphocytes Percent Auto 40.8 % (20-40); Mean Corpuscular HGB Conc 31.5 g/dl (31.0-35.0); Mean Corpuscular Hemoglobin 24.6 pg (27.0-33.0); Mean Corpuscular Volume 77.9 fL (80.0-98.0); Mean Platelet Volume 9.4 fL (9.4-12.3); Monocytes Absolute Auto 0.5 X10*3/uL (0.1-1.2); Monocytes Percent Auto 5.4 % (2-11); NRBC Pct Auto 0.2 /100WBC (0.0-0.2); Neutrophils Absolute Auto 5.2 x10*3/uL (2.0-8.3); Neutrophils Percent Auto 52.1 % (45-73); Platelet Count 287 X10*3/uL (160-400); Red Blood Count 2.85 X10*6/uL (4.20-5.50); Red Cell Distribution Width 18.6 % (11.0-16.0); White Blood Count 10.1 X10*3/uL (4.8-10.8)
[2024-03-22 07:27] VITALS: BP 128/60; PULSE 80; RESP 16; TEMP 37.6; O2SAT 98
--- NOTE | 2024-03-22 07:53 | P.PNGS_ITS ---
Subjective Subjective Date of Service: 03/22/24 Interval history: Patient with no new complaints this morning. Physical Exam 2 Vital Signs: Vital Signs: Last Vital Signs Temp 99.7 F 03/22/24 07:27 Pulse 80 03/22/24 07:27 Resp 16 03/22/24 07:27 BP 128/60 03/22/24 07:27 Pulse Ox 98 03/22/24 07:27 O2 Del Method Room Air 03/22/24 07:27 O2 Flow Rate 5 03/19/24 11:50 BMI result Body Mass Index 41.0 Const: General: no acute distress Nutritional Appearance: well nourished Orientation/consciousness: patient oriented x3 Chest: Other: Chest dressings inplace and clean. HERMILA drains intact with sanguinous output from right, serosang output from left. Resp: Effort & Inspection: normal respiratory effort, no audible wheezes, no cough and no respiratory distress Neuro: General: patient oriented x3 Extrem: Other: no edema Objective Data Active Medications Albuterol Sulfate (Albuterol Sulfate 90 Mcg 8 Gm Inhaler) 2 puff INHALE RQ6H PRN PRN Reason: shortness of breath or wheezing Calcium Carbonate (Calcium Carbonate 750 Mg Tab.Chew) 750 mg PO Q4H PRN PRN Reason: Heartburn Ferrous Sulfate (Ferrous Sulfate 324 Mg Tablet.Dr) 324 mg PO BIDWM [facility] Last Admin: 03/21/24 16:42 Dose: 324 mg Documented By: RAZIA Hydromorphone HCl (Hydromorphone Hcl 0.5 Mg/0.5 Ml Syringe) 0.5 mg IVPUSH Q3H PRN; Protocol PRN Reason: Pain, Severe (Pain Scale 7-10) Last Admin: 03/21/24 02:41 Dose: 0.5 mg Documented By: JAK Losartan Potassium (Losartan Potassium 50 Mg Tablet) 50 mg PO DAILY [facility]; Protocol Last Admin: 03/21/24 08:23 Dose: 50 mg Documented By: RAZIA Magnesium Hydroxide (Milk Of Magnesia 30 Ml Oral.Susp) 30 ml PO DAILY PRN PRN Reason: Constipation Melatonin (Melatonin 3 Mg Tablet) 6 mg PO BEDTIME PRN PRN Reason: Insomnia Naloxone HCl (Naloxone Hcl 0.4 Mg/Ml Vial) 0.04 mg IVPUSH Q5M PRN PRN Reason: Excessive sedation or RR < 8 Omeprazole (Omeprazole 40 Mg Capsule.Dr) 40 mg PO DAILY@0630 [facility] Last Admin: 03/22/24 05:30 Dose: 40 mg Documented By: JAK Ondansetron HCl (Ondansetron Hcl 4 Mg/2 Ml Vial) 4 mg IVPUSH Q8H PRN PRN Reason: Nausea and Vomiting Last Admin: 03/19/24 14:13 Dose: 4 mg Documented By: HARRY Oxycodone HCl (Oxycodone Hcl Immed Release 5 Mg Tablet) 5 mg PO Q6H PRN PRN Reason: Pain, Moderate(Pain Scale 4-6) Prochlorperazine Edisylate (Prochlorperazine Edisylate 10 Mg/2 Ml Vial) 10 mg IVPUSH Q6H PRN PRN Reason: Nausea and Vomiting Last Admin: 03/22/24 03:57 Dose: 10 mg Documented By: JAK Sodium Chloride (0.9 % Sodium Chloride Flush 3 Ml Syringe) [facility] Admin: 03/21/24 20:27 Dose: 3 ml Documented By: JAK Labs 03/22/24 06:42 03/12/24 13:14 Labs: Laboratory Results - last 24 hr 03/22/24 06:42 MCV 77.9 L MCH 24.6 L MCHC 31.5 RDW 18.6 H Plt Count 287 MPV 9.4 Immature Gran % (Auto) 0.5 H Neut % (Auto) 52.1 Lymph % (Auto) 40.8 H [place] % (Auto) 5.4 Eos % (Auto) 0.9 Baso % (Auto) 0.3 Lymph # (Auto) 4.1 [place] # (Auto) 0.5 Eos # (Auto) 0.1 Baso # (Auto) 0.0 Abs Immat Gran (auto) 0.05 H Absolute Neuts (auto) 5.2 Absolute Nucleated RBC 0.020 H Nucleated RBC % (auto) 0.2 Procedures Date of Service Date of Service: 03/22/24 Progress Note: A&P Assessment and plan (1) S/P bilateral mastectomy: Status: Acute Plan 43-year-old female patient status post bilateral mastectomy. Swelling is improved in the right breast. H and H down to 7.0 from 7.2 with no symptoms. Will continue to monitor H/H and hold on transfusion. Continue iron replacement and compressive dressings. Pathology reviewed, negative for malignancy. Continue to monitor flaps. Encouraged out of bed and incentive spirometry. Time Spent With Patient Time: Total time managing care of this patient today ____ minutes. Quality Stroke Does the patient have a stroke diagnosis?: No VTE Prior VTE?: No VTE Risk Level:: Surgical - low VTE Device Contraindication: N/A - Device Ordered VTE Drug Contraindication: Treatment Not Indicated
[2024-03-22] MEDS: Losartan Potassium 50 MG TABLET PO (08:07)
[2024-03-22] MEDS: Ferrous Sulfate 324 MG TABLET.DR PO ×2 (08:07→16:56)
[2024-03-22] MEDS: 0.9 % Sodium Chloride Flush 3 ML SYRINGE IVFLUSH ×3 (08:07→21:27)
[2024-03-22 08:30] VITALS: O2SAT 98
[2024-03-22] MEDS: polyethylene glycoL 3350 17 GM POWD.PACK PO (13:21)
[2024-03-22 15:32] VITALS: BP 133/66; PULSE 90; RESP 18; TEMP 36.7; O2SAT 100
[2024-03-22 19:17] VITALS: BP 149/69; PULSE 86; RESP 18; TEMP 36.3; O2SAT 100
[2024-03-22] MEDS: Docusate Sodium 100 MG CAPSULE PO (21:27)
[2024-03-23 03:37] VITALS: BP 145/66; PULSE 79; RESP 18; TEMP 36.3; O2SAT 98
[2024-03-23 05:45] LABS: MANUAL DIFF FLAG NO
[2024-03-23 05:47] LABS: Basophils Percent Auto 0.2 % (0-2); Eosinophils Absolute Auto 0.2 X10*3/uL (0.0-0.4); Eosinophils Percent Auto 1.9 % (0-4); Hematocrit 22.8 % (37.0-47.0); Hemoglobin 7.1 g/dl (12.0-16.0); Imm Gran Abs Auto 0.03 X10*3/uL (0.00-0.03); Imm Gran Pct Auto 0.3 % (0.0-0.4); Lymphocytes Absolute Auto 3.6 X10*3/uL (1.2-4.9); Lymphocytes Percent Auto 39.4 % (20-40); Mean Corpuscular HGB Conc 31.1 g/dl (31.0-35.0); Mean Corpuscular Hemoglobin 24.4 pg (27.0-33.0); Mean Corpuscular Volume 78.4 fL (80.0-98.0); Mean Platelet Volume 9.4 fL (9.4-12.3); Monocytes Absolute Auto 0.5 X10*3/uL (0.1-1.2); Monocytes Percent Auto 5.8 % (2-11); Neutrophils Absolute Auto 4.7 x10*3/uL (2.0-8.3); Neutrophils Percent Auto 52.4 % (45-73); Platelet Count 340 X10*3/uL (160-400); Red Blood Count 2.91 X10*6/uL (4.20-5.50); Red Cell Distribution Width 18.5 % (11.0-16.0); White Blood Count 9.1 X10*3/uL (4.8-10.8)
[2024-03-23] MEDS: Omeprazole 40 MG CAPSULE.DR PO (06:00)
[2024-03-23 07:12] VITALS: BP 139/63; PULSE 82; RESP 16; TEMP 36.9; O2SAT 98
[2024-03-23] MEDS: Losartan Potassium 50 MG TABLET PO (07:23)
[2024-03-23] MEDS: Ferrous Sulfate 324 MG TABLET.DR PO (07:23)
[2024-03-23] MEDS: Docusate Sodium 100 MG CAPSULE PO (07:23)
[2024-03-23] MEDS: 0.9 % Sodium Chloride Flush 3 ML SYRINGE IVFLUSH (07:24)
[2024-03-23] MEDS: polyethylene glycoL 3350 17 GM POWD.PACK PO (07:24)
--- NOTE | 2024-03-23 08:08 | P.PNGS_ITS ---
Subjective Subjective Date of Service: 03/23/24 Interval history: Feels well, very mild incisional pain. Ambulating without difficulty. Tolerating diet and moving bowels. Wants to go home. Physical Exam 2 Vital Signs: Vital Signs: Last Vital Signs Temp 98.5 F 03/23/24 07:12 Pulse 82 03/23/24 07:12 Resp 16 03/23/24 07:12 BP 139/63 03/23/24 07:12 Pulse Ox 98 03/23/24 07:12 O2 Del Method Room Air 03/23/24 07:46 O2 Flow Rate 5 03/19/24 11:50 BMI result Body Mass Index 41.0 Const: General: comfortable, no acute distress and alert O rientation/consciousness: patient oriented x3 Chest: Other: b/l mastectomy sites clean appearing and flaps viable, right site improved, less fullness, moderate ecchymosis, no fullness of left side right HERMILA drain cont with sanguineous output but thinning, decreasing left HERMILA serosang output Resp: Effort & Inspection: normal respiratory effort Skin: General skin exam: no rashes or lesions noted Neuro: General: patient oriented x3 and moves all extremities Objective Data Active Medications Albuterol Sulfate (Albuterol Sulfate 90 Mcg 8 Gm Inhaler) 2 puff INHALE RQ6H PRN PRN Reason: shortness of breath or wheezing Calcium Carbonate (Calcium Carbonate 750 Mg Tab.Chew) 750 mg PO Q4H PRN PRN Reason: Heartburn Docusate Sodium (Docusate Sodium 100 Mg Capsule) 100 mg PO BID [facility] Last Admin: 03/23/24 07:23 Dose: 100 mg Documented By: WIN Ferrous Sulfate (Ferrous Sulfate 324 Mg Tablet.) 324 mg PO BIDWM [facility] Last Admin: 03/23/24 07:23 Dose: 324 mg Documented By: WIN Hydromorphone HCl (Hydromorphone Hcl 0.5 Mg/0.5 Ml Syringe) 0.5 mg IVPUSH Q3H PRN; Protocol PRN Reason: Pain, Severe (Pain Scale 7-10) Last Admin: 03/21/24 02:41 Dose: 0.5 mg Documented By: JAK Losartan Potassium (Losartan Potassium 50 Mg Tablet) 50 mg PO DAILY [facility]; Protocol Last Admin: 03/23/24 07:23 Dose: 50 mg Documented By: WIN Magnesium Hydroxide (Milk Of Magnesia 30 Ml Oral.Susp) 30 ml PO DAILY PRN PRN Reason: Constipation Melatonin (Melatonin 3 Mg Tablet) 6 mg PO BEDTIME PRN PRN Reason: Insomnia Naloxone HCl (Naloxone Hcl 0.4 Mg/Ml Vial) 0.04 mg IVPUSH Q5M PRN PRN Reason: Excessive sedation or RR < 8 Omeprazole (Omeprazole 40 Mg Capsule.Dr) 40 mg PO DAILY@0630 [facility] Last Admin: 03/23/24 06:00 Dose: 40 mg Documented By: ROBYN Ondansetron HCl (Ondansetron Hcl 4 Mg/2 Ml Vial) 4 mg IVPUSH Q8H PRN PRN Reason: Nausea and Vomiting Last Admin: 03/19/24 14:13 Dose: 4 mg Documented By: HARRY Oxycodone HCl (Oxycodone Hcl Immed Release 5 Mg Tablet) 5 mg PO Q6H PRN PRN Reason: Pain, Moderate(Pain Scale 4-6) Polyethylene Glycol (Polyethylene Glycol 3350 17 Gm Powd.Pack) 17 gm PO DAILY [facility] Last Admin: 03/23/24 07:24 Dose: 17 gm Documented By: WIN Prochlorperazine Edisylate (Prochlorperazine Edisylate 10 Mg/2 Ml Vial) 10 mg IVPUSH Q6H PRN PRN Reason: Nausea and Vomiting Last Admin: 03/22/24 03:57 Dose: 10 mg Documented By: JAK Sodium Chloride (0.9 % Sodium Chloride Flush 3 Ml Syringe) 3 ml IVFLUSH QSHIFT [facility] Last Admin: 03/23/24 07:24 Dose: 3 ml Documented By: WIN Labs 03/23/24 05:00 03/12/24 13:14 Labs: Laboratory Results - last 24 hr 03/23/24 05:00 MCV 78.4 L MCH 24.4 L MCHC 31.1 RDW 18.5 H Plt Count 340 MPV 9.4 Immature Gran % (Auto) 0.3 Neut % (Auto) 52.4 Lymph % (Auto) 39.4 [place] % (Auto) 5.8 Eos % (Auto) 1.9 Baso % (Auto) 0.2 Lymph # (Auto) 3.6 [place] # (Auto) 0.5 Eos # (Auto) 0.2 Baso # (Auto) 0.0 Abs Immat Gran (auto) 0.03 Absolute Neuts (auto) 4.7 Absolute Nucleated RBC 0.000 Nucleated RBC % (auto) 0.0 Procedures Date of Service Date of Service: 03/23/24 Progress Note: A&P Assessment and plan (1) S/P bilateral mastectomy: Status: Acute Plan POD #4 s/p b/l simple mastectomy. H/H is stable and has leveled off. She is hemodynamically stable. Right mastectomy site fullness improved, moderate ecchymosis, HERMILA drain output decreasing. Left side clean appearing, HERMILA output serosang. Patient feels ready for discharge. Plan discussed with patient and spouse at bedside who are comfortable with HERMILA drain care themselves at home. Will dc to home today with drains in place. F/u in office in 1 week. She is already on oral iron therapy at home. Time Spent With Patient Time: Total time managing care of this patient today ____ minutes. Quality Stroke Does the patient have a stroke diagnosis?: No VTE Prior VTE?: No VTE Risk Level:: Surgical - low VTE Device Contraindication: N/A - Device Ordered VTE Drug Contraindication: Treatment Not Indicated
--- NOTE | 2024-03-23 08:57 | MHC.CM.PN ---
Patient is discharged to home self-care. She is independent with drain management. Her will provide transportation home.
[2024-03-23] MEDS: oxyCODONE HCl Immed Release 5 MG TABLET PO (09:07)
--- NOTE | 2024-03-23 09:18 | P.DS_ITS ---
DS: Providers Provider Date of Service: 03/23/24 Date of admission: 03/19/24 08:16 Date of discharge: 03/23/24 Primary care physician: Val Rodriguez MD Attending physician on admission: Rei Acevedo Attending physician on discharge: Rei Acevedo DS: Diagnosis Discharge Diagnosis (1) S/P bilateral mastectomy: Status: Acute DS: Summary Hospital Course Hospital Course: HPI AT ADMISSION: 43-year-old female with history of multiple previous bilateral breast lumpectomies all of which have been benign presenting with multiple large bilateral breast lumps which seemed to be increasing in size. Patient decided she does not want to continue to have lumpectomies and requested bilateral simple mastectomies. HOSPITAL COURSE: On 03/19/24, bilateral simple mastectomy was performed by Dr. Acevedo without immediate complications. She tolerated the procedure well and was admitted for observation post operatively. She developed a hematoma of the right breast post operatively with a drop in her H/H. She remained asymptomatic. This was monitored and improved with pressure dressing. Her h/h was trended and stabilized without transfusion and she was initiated on oral iron therapy. She remained inpatient for 4 days post op for observation. On the day of discharge, she was tolerating a solid diet, had minimal post op pain, was ambulating without difficulty and had good GI function. She was hemodynamically stable. Her mastectomy sites were clean appearing with viable flaps, the right hematoma had improved significantly with small residual fullness. Her left HERMILA drain remained sanguineous appearing but output decreased. Her right HERMILA drain was serosanguineous. Her H/H leveled off. She felt ready for discharge to home. She was discharged to home on 03/23/24 in stable condition with the drains in place and to resume her home oral iron therapy. She is to follow up in the office in 1 week. Status at Discharge Functional status at discharge: independent ambulation Overall status at discharge: patient is progressing back to baseline Time Attestation Discharge Coordination Time (in mins): 40 Quality: Safe Use of Opioids Does Pt have an Active Cancer Diagnosis on the Problem List?: No Quality: Stroke Does the patient have a stroke diagnosis?: No Physical Exam Vital Signs: Vital Signs: Last Vital Signs Temp 98.5 F 03/23/24 07:12 Pulse 82 03/23/24 07:12 Resp 16 12/06/24 07:12 BP 139/63 03/23/24 07:12 Pulse Ox 98 03/23/24 07:12 O2 Del Method Room Air 03/23/24 07:46 O2 Flow Rate 5 03/19/24 11:50 BMI result Body Mass Index 41.0 Const: General: healthy appearing, comfortable, no acute distress and alert Orientation/consciousness: patient oriented x3 Chest: Other: b/l mastectomy sites clean appearing and flaps viable, right site improved, less fullness, moderate ecchymosis, no fullness of left side right HERMILA drain cont with sanguineous output but thinning, decreasing left HERMILA serosang output Skin: General skin exam: no rashes or lesions noted Neuro: General: patient oriented x3 DS: Data Data Completed and Pending Completed studies during hospitalization [Text1]: 03/19/24 10:08 Surgical [PTH] Routine A. Breast, left, mastectomy: -Fibrocystic change with focal usual ductal hyperplasia, apocrine metaplasia, pseudoangiomatous stromal hyperplasia, hyalinized fibrosis, duct ectasia, and microcalcifications in benign breast tissue. -Focal ectatic lymphatics suggesting incidental lymphangioma. -Benign skin and nipple. -One benign lymph node with dermatopathic changes and red tattoo pigment. -No evidence of malignancy. B. Breast, right, mastectomy: -Fibrocystic change with focal usual ductal hyperplasia, apocrine metaplasia, pseudoangiomatous stromal hyperplasia, hyalinized fibrosis, gynecomastia-like hyperplasia, and focal duct ectasia. -Benign skin and nipple. -No evidence of malignancy. Labs on day of discharge: Laboratory Results - last 24 hr 03/23/24 05:00 WBC 9.1 RBC 2.91 L Hgb 7.1 L Hct 22.8 L MCV 78.4 L MCH 24.4 L MCHC 31.1 RDW 18.5 H Plt Count 340 MPV 9.4 Immature Gran % (Auto) 0.3 Neut % (Auto) 52.4 Lymph % (Auto) 39.4 [place] % (Auto) 5.8 Eos % (Auto) 1.9 Baso % (Auto) 0.2 Lymph # (Auto) 3.6 [place] # (Auto) 0.5 Eos # (Auto) 0.2 Baso # (Auto) 0.0 Abs Immat Gran (auto) 0.03 Absolute Neuts (auto) 4.7 Absolute Nucleated RBC 0.000 Nucleated RBC % (auto) 0.0 Discharge Plan Discharge Anticipated Discharge Date/Time: 03/23/24 13:06 Patient Disposition: Home, Self-Care Discharge Diagnosis: s/p bilateral mastectomy Referrals: Rei Acevedo MD [Physician] - 1 Week Val Eagle MD [Primary Care Provider] - 1 Week Discharge Medications: New docusate sodium [Colace] 100 mg capsule 100 mg PO BID Qty: 30 0RF oxycodone 5 mg tablet 5 mg PO Q4H PRN (Reason: pain (scale score 7-10)) Qty: 20 0RF Rx Instructions: Partial Fill upon patient request. Continued omeprazole 40 mg capsule,delayed release(DR/EC) 40 mg PO DAILY Qty: 14 0RF ferrous sulfate [iron] 325 mg (65 mg iron) tablet 325 mg PO DAILY Qty: 90 0RF [place]gov[place] 0.5 mg/0.5 mL pen injector 0.5 mg subcut QWEEK 28 Days Qty: 2 0RF Rx Instructions: administer weeks 5 through 8 of therapy epinephrine 0.3 mg/0.3 mL auto-injector 0.3 mg IM DIRECTED PRN (Reason: anaphylaxis) 30 Days Qty: 2 1RF losartan 50 mg tablet 50 mg PO DAILY 90 Days Qty: 90 0RF albuterol sulfate [Ventolin HFA] 90 mcg/actuation HFA aerosol inhaler 2 puff inhalation Q6H PRN (Reason: shortness of breath or wheezing) 30 Days Qty: 8 2RF [place]gov[place] 0.25 mg/0.5 mL pen injector 0.25 mg subcut QWEEK 28 Days Qty: 2 0RF Rx Instructions: administer weeks 1 through 4 of therapy Discontinued amoxicillin 500 mg capsule 500 mg PO Q12H Qty: 42 0RF clarithromycin 500 mg tablet 500 mg PO Q12H Qty: 28 0RF Discharge Orders: Discharge Order (Routine); Ordered 03/23/24 Ordered By: Rei Acevedo Diet: Advance to usual diet Activity on Discharge: No heavy lifting Stand Alone Forms: Patient Portal Discharge page Print Language: Serbian Activity Restrictions/Additional Instructions: If the incision area is tender, you may apply an ice pack for short intervals (No more than 20 minutes on, followed by at least 20 minutes off). Do not apply heat. Do not use creams, lotions, or topical antibiotics. These can cause infection or allergic reaction. Ok to shower. You have steri strips on your incisions and these will fall off in ~1 week. Take Tylenol Extra-strength 1-2 tabs every 6 hours as needed. Oxycodone every 4- 6 hours as needed for pain. Colace 100 mg twice a day as needed for constipation. NO HEAVY LIFTING (>10lbs). HERMILA drain care- empty drains BID and as needed. Record output. Bring record to follow up appointment. Follow up in office with Dr. Acevedo in 1 week. ([phone]) Call Your Doctor If: ? ? -Your temperature exceeds 101.5? F? ? ? -You experience excessive pain or swelling ? ? -You have an unexpected reaction to medication ? ? -You have excessive bleeding ? ? -You experience continued vomiting/nausea ? ? -Your incision begins to separate ?? ? -Your incision shows signs of infection such as increased redness, swelling, excessive pain, drainage (light blood or clear fluid is normal) or heat Care Plan Goals: Return to baseline health and resume normal activities following recovery period. HERMILA drain removal. Health Concerns: s/p bilateral simple mastectomy Plan of Treatment: Home with VNA services F/u in office in 1 week Eventual drain removal Assessment: Stable. Discharge Date/Time: 03/23/24 09:22
--- NOTE | 2024-03-24 07:47 | P.CDIM_ITS ---
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 Please review below and update the documentation accordingly. Clinical Indicators: Height: ( ) 5'5 Weight: ( ) 113.4 kg BMI: ( ) 41.0 If possible, please provide an associated diagnosis related to the abnormal BMI, such as: Overweight Obesity Due to excess calories Obesity Drug induced Obesity Due to other cause Specify the other cause Severe or Morbid Obesity With alveolar hypoventilation Severe or Morbid Obesity Without alveolar hypoventilation BMI is not significant Other (explain) Clinically unable to determine (explain) Thank you, Lucinda Tyler RN Use of terms such as suspected, likely, concern for, or probable (associated with a specific diagnosi s that is being evaluated, monitored, or treated as if it exists) are acceptable and can be coded in the inpatient se tting, when documented at the time of discharge. Please use your independent medical judgment in providing your response. THIS QUERY IS PART OF THE PERMANENT MEDICAL RECORD
== END 2024-03-23 09:22 | disposition home or self-care (01) | DRG 362 ==
LOC: HO.SSSA 08:22 → HO.S3 12:39
PROVIDERS: Anesthesiology; Physician Assistant Surgical; Admitting Provider Surgery; PCP Internal Medicine; Visit Provider Surgery
PROC: 0HTV0ZZ Resection of Bilateral Breast, Open Approach (ICD-10-PCS; CPT 19303; principal; 2024-03-19 09:30)
DX: N63.15 Unspecified lump in the right breast, overlapping quadrants (principal); E66.01 Morbid (severe) obesity due to excess calories; G89.18 Other acute postprocedural pain; Z68.41 Body mass index [BMI] 40.0-44.9, adult; N63.25 Unspecified lump in the left breast, overlapping quadrants; Z79.899 Other long term (current) drug therapy
CPT/HCPCS: 36415; 80048; 81025; 85025; 86850; 86900; 86901; 88307; J0131; J0171; J0665; J0690; J0737; J1171; J2405; J2795; J7120

== ENCOUNTER → 2024-03-19 08:16 | Outpatient (BNV) | payer OTHER, SELFPAY | PROVIDERS: Admitting Provider Surgery; PCP Internal Medicine; Visit Provider Surgery | DX: Z90.13 Acquired absence of bilateral breasts and nipples (principal) | CPT/HCPCS: 19303; 99024; 99449 ==

== ENCOUNTER → 2024-03-29 09:18 | Outpatient (AMB) | payer OTHER, SELFPAY ==
--- NOTE | 2024-03-29 09:05 | MHC.WMTHER ---
Intake Intake Visit Reasons: TV BH F/U Allergies environmental allergies Allergy (Intermediate, Verified 05/01/24 15:45) SOB, itchy throat grass pollen Allergy (Intermediate, Verified 05/01/24 15:45) shortness of breath, itchy throat, itchy PFSH Medical History Anemia Helicobacter pylori (H. pylori) infection Lumbar transverse process fracture Polyarthralgia Hand numbness Chronic fatigue Back pain Hypertension Asthma Surgical History S/P bilateral mastectomy (03/19/24) History of breast lump/mass excision (09/20/22) History of esophagogastroduodenoscopy (EGD) (01/26/24) H/O breast surgery H/O right breast biopsy Family History Father Cardiac murmur CVD (cardiovascular disease) Mother Diabetes Hypertension Sister No problems noted. Brother No problems noted. Brother No problems noted. Brother No problems noted. Social History Household Members: Family Housing: House Are you a primary youth care specialist to a significant other at home: No Do you presently have visiting nurse or other home services: No 75 years or older and lives alone: No Alcohol intake: current Alcohol intake frequency: does not drink Alcohol type: beer Comment: aware of trip hazard Patient Tobacco Use Status: Never used Tobacco e-Cigarette/Vaping Use: Never Used Second Hand Smoke Exposure: No service: No Current occupational status: employed Current occupational exposures/hazards: No Cognitive needs: No Hearing needs: No Vision needs: Yes Behavioral Health Assessment Weight Management Therapy Therapy Notes Details Subjective: PT reports feeling stressed and is in recovery from a recent bilateral mastectomy. She is not following her meal/exercise plan due to surgery-related limitations. She denies feeling depressed. Objective: The patient presents for a follow-up visit via Telehealth. We discussed her current functioning and challenges, including new medical issues that will require surgery. We worked on habit-building strategies and her readiness for weight-loss surgery. Stress management techniques were provided, and we incorporated Cognitive Behavioral Therapy (CBT) and Cognitive Processing Therapy (CPT)-based interventions. Assessment/Response: Mental status: euthymic with some stress; some functioning issues due to recent surgery Risk reported/identified: None The patient was active, engaged, and responded well to the interventions. Assessment & Plan Assessment & Plan (1) Obesity (BMI 30-39.9): Code(s): E66.9 - Obesity, unspecified (2) Adjustment disorder: Code(s): F43.20 - Adjustment disorder, unspecified Plan Follow-up in 1 month. Next sathish: 04/26/2024 at 9am, Phone call Telehealth Telehealth Telehealth Platform: [employer] Location of provider rendering services: other Location of patient: address on file Patient Identification confirmed using: Name, : Yes Telehealth method: voice only Patient verbally consented to treatment: Yes Patient verbally consented to billing insurance company: Yes Patient informed of any privacy concerns related to visit: Yes Minutes spent on Phone/Video with Pt.: 55 Coding Level of Care Code Established Pt Tele Psytx >53 mins (32442) Patient Type Established Diagnoses Obesity (BMI 30-39.9) E66.9 Adjustment disorder F43.20 Time Spent (min) 55
== END ==
PROVIDERS: PCP Internal Medicine; Visit Provider Counselor Mental Health
DX: E66.9 Obesity, unspecified (principal); F43.20 Adjustment disorder, unspecified
CPT/HCPCS: 90837

== ENCOUNTER → 2024-03-29 09:18 | Outpatient (BNVA) | payer OTHER, SELFPAY | PROVIDERS: PCP Internal Medicine; Visit Provider Counselor Mental Health | DX: E66.9 Obesity, unspecified (principal); Z68.37 Body mass index [BMI] 37.0-37.9, adult | CPT/HCPCS: 99212 ==

== ENCOUNTER 2024-03-29 14:52 | Outpatient (AMB) | payer OTHER, SELFPAY ==
--- NOTE | 2024-03-29 14:55 | A.OFFVIS_ITS ---
VS Expanded 03/29/24 15:04 BP 144/67 H Blood Pressure Location Rt brachial Blood Pressure Position Sitting Pulse 96 Pulse Source Pulse Oximeter Temp 97.1 F Temperature Source Temporal Artery Scan Pulse Oximetry 100 Oxygen Delivery Method Room Air Height 5 ft 5 in Weight 225 lb BMI 37.4 Body Fat % 42.0 Body Fat Mass 94.4 Fat Free Mass 130.6 Visceral Fat Rating 11.0 Body Water % 41.4 Body Water Mass 93.0 Muscle Mass/Score 123.8 Basal Metabolic Rate/Score 1,815 Intake Visit Reasons: (OV) F/U SWL Talent Management Manager Required: Yes Talent Management Manager Services: Talent Management Manager Present Talent Management Manager Name: cmi Allergies environmental allergies Allergy (Intermediate, Verified 03/12/24 13:18) SOB, itchy throat grass pollen Allergy (Intermediate, Verified 03/12/24 13:18) shortness of breath, itchy throat, itchy Medication List - Last Reconciled 03/29/24 by IDANIA Tellez docusate sodium (Colace) 100 mg PO BID epinephrine 0.3 mg (0.3 mL) IM DIRECTED PRN 30 days ferrous sulfate (iron) 325 mg PO DAILY losartan 50 mg PO DAILY 90 days omeprazole 40 mg PO DAILY oxycodone 5 mg PO Q4H PRN semaglutide (weight loss) (Wegovy) 0.5 mg (0.5 mL) subcut QWEEK 4 weeks Ventolin HFA 90 mcg/actuation (albuterol sulfate) 2 puffs inhalation Q6H PRN 30 days NS HPI Comments Details: Patient is a 43-year-old female who returns to the office today in follow-up. She was initially seen in the surgical weight loss program on 11/11/2023. Due to scheduling issues she has not been seen since. At that time, her weight was 235.8 lb with a BMI of 39.2. Weight today is 225 with a BMI of 36.9. She has lost 10.8 lb or 4.5% total body weight loss. Since last being seen, she underwent bilateral mastectomy on 03/19/[address] Acevedo. At the time of her initial visit, she was given information regarding the [place] sathish. States she is using the sathish Meal plan: 2 bars, pure protein 1 shake, fairlife 30 gm protein meal Exercise treadmill and stationary bike, 4 days per week [phone] [facility] Medical History Anemia Helicobacter pylori (H. pylori) infection Lumbar transverse process fracture Polyarthralgia Hand numbness Chronic fatigue Back pain Hypertension Asthma Surgical History S/P bilateral mastectomy History of breast lump/mass excision (09/20/22) History of esophagogastroduodenoscopy (EGD) (01/26/24) H/O breast surgery H/O right breast biopsy Family History Father Cardiac murmur CVD (cardiovascular disease) Mother Diabetes Hypertension Sister No problems noted. Brother No problems noted. Brother No problems noted. Brother No problems noted. Social History Household Members: Family Housing: House Are you a primary memory care director to a significant other at home: No Do you presently have visiting nurse or other home services: No 75 years or older and lives alone: No Alcohol intake: current Alcohol intake frequency: does not drink Alcohol type: beer Comment: aware of trip hazard Patient Tobacco Use Status: Never used Tobacco e-Cigarette/Vaping Use: Never Used Second Hand Smoke Exposure: No service: No Current occupational status: employed Current occupational exposures/hazards: No Cognitive needs: No Hearing needs: No Vision needs: Yes Physical Exam Const General: healthy appearing and no acute distress Resp Effort & Inspection: normal respiratory effort Auscultation: clear to auscultation bilaterally Cardio Rate: regular rate Rhythm: regular rhythm GI Auscultation: normal bowel sounds Extrem General: Yes normal to inspection Quality Reporting (2020) Adult ([facility] 138/2/) Smoking risk assessment performed?: Yes Patient Tobacco Use Status: Never used Tobacco Assessment & Plan Assessment & Plan (1) Obesity (BMI 30-39.9): Code(s): E66.9 - Obesity, unspecified Category: Medical Plan: Encouraged to continue with the right BMI sathish. Encouraged to increase her exercise. Her treadmill at home does not incline. She states she is going to join a gym. Goal of burning 2000 calories per week. Additionally, encouraged to buy a treadmill that does incline perhaps a used 1 on each day or [employer]. She is going to look into this with her partner. Encouraged to continue to text weekly with her weight and with any questions or concerns. We will have her return to the office in approximately 4 weeks.
[2024-03-29 15:04] VITALS: BP 144/67; PULSE 96; TEMP 36.2; O2SAT 100; BMI 37.4
== END 2024-03-29 15:28 | disposition home or self-care (01) ==
LOC: HO.HBS 14:52
PROVIDERS: PCP Internal Medicine; Visit Provider Physician Assistant Surgical
DX: E66.9 Obesity, unspecified (principal); E66.812 Obesity, class 2; Z68.37 Body mass index [BMI] 37.0-37.9, adult
CPT/HCPCS: 99213

== ENCOUNTER 2024-03-30 10:07 | Outpatient (AMB) | payer OTHER, SELFPAY ==
--- NOTE | 2024-03-30 10:20 | MHC.OFFVIS ---
Vital Signs 03/30/24 10:28 Height 5 ft 5 in Weight 224 lb 13.944 oz BMI 37.4 Pulse 82 Intake Visit Reasons: S/P Bilateral simple mastectomy Intake Note: Patient is seen in office for post op assessment post bilateral simple mastectomy. Pt c/o: left side is no longer draining, rt side discharge during the past 3 days surgery:03/19/24 Patrol Guard Required: Yes Patrol Guard Language: Foreign Banknote Teller Trader Services: Patrol Guard Present Patrol Guard Name: Maggie HORTON Information Interpreted: non-clinical & clinical Crown Assembly Machine Operator: Crown Assembly Machine Operator Present Accompanied by: Family/Other Allergies environmental allergies Allergy (Intermediate, Verified 03/30/24 10:28) SOB, itchy throat grass pollen Allergy (Intermediate, Verified 03/30/24 10:28) shortness of breath, itchy throat, itchy HPI Comments Details: 43-year-old female patient status post bilateral simple mastectomy. She has not been taking any pain medication generally feels well. Drainage from the left HERMILA has been minimal however she continues to have drainage from the right HERMILA which is somewhat sanguinous. She is eating well and denies any nausea or vomiting. [facility] Medical History Anemia Helicobacter pylori (H. pylori) infection Lumbar transverse process fracture Polyarthralgia Hand numbness Chronic fatigue Back pain Hypertension Asthma Surgical History S/P bilateral mastectomy (03/19/24) History of breast lump/mass excision (09/20/22) History of esophagogastroduodenoscopy (EGD) (01/26/24) H/O breast surgery H/O right breast biopsy Family History Father Cardiac murmur CVD (cardiovascular disease) Mother Diabetes Hypertension Sister No problems noted. Brother No problems noted. Brother No problems noted. Brother No problems noted. Social History Household Members: Family Housing: House Are you a primary manager medicare marketing to a significant other at home: No Do you presently have visiting nurse or other home services: No 75 years or older and lives alone: No Alcohol intake: current Alcohol intake frequency: does not drink Alcohol type: beer Comment: aware of trip hazard Patient Tobacco Use Status: Never used Tobacco e-Cigarette/Vaping Use: Never Used Second Hand Smoke Exposure: No service: No Current occupational status: employed Current occupational exposures/hazards: No Cognitive needs: No Hearing needs: No Vision needs: Yes Physical Exam Const General: comfortable Nutritional Appearance: well nourished Orientation/consciousness: patient oriented x3 Limitations: no limitations Chest Other: Incisions are clean, dry, and intact without redness or discharge. No bleeding or discharge appreciated. HERMILA left was removed today. We will keep HERMILA right in place Skin Other: Warm, dry, no rash Neuro General: patient oriented x3 Extrem Other: No edema Quality Reporting (2019) Adult ([facility] 138/06/09/68) Smoking risk assessment performed?: Yes Patient Tobacco Use Status: Never used Tobacco Assessment & Plan Assessment & Plan (1) Breast lump: Comment: 06/11/2022 CT chest: Multiple bilateral breast masses with low suspicion features. Screening mammography should be considered. Code(s): N63.0 - Unspecified lump in unspecified breast Category: Medical Qualifiers: Laterality: unspecified laterality Qualified Code(s): N63.0 - Unspecified lump in unspecified breast Plan 43-year-old female patient with bilateral multi quadrant breast masses with a previous history of Pash now returning status post simple mastectomy bilateral. Her wounds are clean, dry, and intact and healing well. HERMILA left was removed today in HERMILA right we will be kept in place and rechecked in 1 week. She is welcome to call sooner for any new concerns. Coding Level of Care Code Global (39498) Diagnoses Mass of breast, unspecified laterality N63.0 Laterality: unspecified laterality
[2024-03-30 10:28] VITALS: PULSE 82; BMI 37.4
== END 2024-03-30 10:30 | disposition home or self-care (01) ==
PROVIDERS: PCP Internal Medicine; Visit Provider Surgery
DX: N63.0 Unspecified lump in unspecified breast (principal)
CPT/HCPCS: 99024

== ENCOUNTER → 2024-03-30 10:07 | Outpatient (BNVA) | payer OTHER, SELFPAY | PROVIDERS: PCP Internal Medicine; Visit Provider Surgery | DX: N63.0 Unspecified lump in unspecified breast (principal) | CPT/HCPCS: 99212 ==

== ENCOUNTER 2024-04-05 09:51 | Outpatient (REF) | payer OTHER, SELFPAY ==
[2024-04-07 14:58] LABS: H Pylori Breath Test Negative (Negative)
== END 2024-04-05 09:52 | disposition home or self-care (01) ==
LOC: HO.LNP 09:51
PROVIDERS: PCP Internal Medicine; Visit Provider Physician Assistant Surgical
DX: A04.8 Other specified bacterial intestinal infections (principal)
CPT/HCPCS: 83013; 99211

== ENCOUNTER 2024-04-10 14:38 | Outpatient (AMB) | payer OTHER, SELFPAY ==
--- NOTE | 2024-04-10 14:44 | MHC.OFFVIS ---
Vital Signs 04/10/24 14:55 Height 5 ft 5 in Weight 224 lb 13.944 oz BMI 37.4 Respiration 16 Pulse 82 Intake Visit Reasons: 1 week follow up S/P Bilateral simple mastectomy Intake Note: Patient is seen in office for one week follow up visit, post bilateral mastectomy. Pt c/o:here to remove drain Onsite Case Manager Required: Yes Onsite Case Manager Language: Railroad Car Repair Supervisor Services: Onsite Case Manager Present Onsite Case Manager Name: Maggie HORTON Information Interpreted: non-clinical & clinical Resource Agent: Resource Agent Present Accompanied by: Self / Same As Patient Allergies environmental allergies Allergy (Intermediate, Verified 04/10/24 14:46) SOB, itchy throat grass pollen Allergy (Intermediate, Verified 04/10/24 14:46) shortness of breath, itchy throat, itchy HPI Comments Details: Patient returns for wound check and drain removal. Output has been decreasing. She denies any new pain in either side. [facility] Medical History Anemia Helicobacter pylori (H. pylori) infection Lumbar transverse process fracture Polyarthralgia Hand numbness Chronic fatigue Back pain Hypertension Asthma Surgical History S/P bilateral mastectomy (03/19/24) History of breast lump/mass excision (09/20/22) History of esophagogastroduodenoscopy (EGD) (01/26/24) H/O breast surgery H/O right breast biopsy Family History Father Cardiac murmur CVD (cardiovascular disease) Mother Diabetes Hypertension Sister No problems noted. Brother No problems noted. Brother No problems noted. Brother No problems noted. Social History Household Members: Family Housing: House Are you a primary home visit field care manager to a significant other at home: No Do you presently have visiting nurse or other home services: No 75 years or older and lives alone: No Alcohol intake: current Alcohol intake frequency: does not drink Alcohol type: beer Comment: aware of trip hazard Patient Tobacco Use Status: Never used Tobacco e-Cigarette/Vaping Use: Never Used Second Hand Smoke Exposure: No service: No Current occupational status: employed Current occupational exposures/hazards: No Cognitive needs: No Hearing needs: No Vision needs: Yes Physical Exam Chest Other: Bilateral chest incisions are clean, dry and intact. The right HERMILA drain was removed today and dry sterile dressings applied. Patient tolerated this well. Quality Reporting (2019) Adult ([facility] 13806/09/68) Smoking risk assessment performed?: Yes Patient Tobacco Use Status: Never used Tobacco Assessment & Plan Assessment & Plan (1) Pseudoangiomatous stromal hyperplasia of breast: Code(s): N64.89 - Other specified disorders of breast Category: Medical Plan Patient is status post bilateral simple mastectomy. Her wounds are clean, dry, and intact. Both drains have been removed. I recommended returning to work as of 04/19/2024. She should return approximately 1 month for follow-up examination sooner p.r.n.. Coding Level of Care Code Global (64271) Diagnoses Pseudoangiomatous stromal hyperplasia of breast N64.89
[2024-04-10 14:55] VITALS: PULSE 82; RESP 16; BMI 37.4
== END 2024-04-10 14:58 | disposition home or self-care (01) ==
PROVIDERS: PCP Internal Medicine; Visit Provider Surgery
DX: N64.89 Other specified disorders of breast (principal)
CPT/HCPCS: 99024

== ENCOUNTER → 2024-04-10 14:38 | Outpatient (BNVA) | payer OTHER, SELFPAY | PROVIDERS: PCP Internal Medicine; Visit Provider Surgery | DX: Z48.03 Encounter for change or removal of drains (principal); Z90.13 Acquired absence of bilateral breasts and nipples; N64.89 Other specified disorders of breast | CPT/HCPCS: 99212 ==

== ENCOUNTER 2024-04-16 11:49 | Outpatient (AMB) | payer OTHER, SELFPAY ==
--- NOTE | 2024-04-16 11:51 | A.OFFVIS_ITS ---
Intake Visit Reasons: S/P Mastectomy (R) breast fluid filled and painful Intake Note: Patient scheduled urgent appointment for pain at Rt mastectomy site. Feels like there fluid inside. Patient denies oozing, discharge from tube site. Regional Transportation Manager Required: No Allergies environmental allergies Allergy (Intermediate, Verified 04/16/24 11:53) SOB, itchy throat grass pollen Allergy (Intermediate, Verified 04/16/24 11:53) shortness of breath, itchy throat, itchy HPI Comments Details: Patient returns with swelling in the right chest wall suggestive of fluid reaccumulation. She is having pain as well. [facility] Medical History Anemia Helicobacter pylori (H. pylori) infection Lumbar transverse process fracture Polyarthralgia Hand numbness Chronic fatigue Back pain Hypertension Asthma Surgical History S/P bilateral mastectomy (03/19/24) History of breast lump/mass excision (09/20/22) History of esophagogastroduodenoscopy (EGD) (01/26/24) H/O breast surgery H/O right breast biopsy Family History Father Cardiac murmur CVD (cardiovascular disease) Mother Diabetes Hypertension Sister No problems noted. Brother No problems noted. Brother No problems noted. Brother No problems noted. Social History Household Members: Family Housing: House Are you a primary team primary care physician to a significant other at home: No Do you presently have visiting nurse or other home services: No 75 years or older and lives alone: No Alcohol intake: current Alcohol intake frequency: does not drink Alcohol type: beer Comment: aware of trip hazard Patient Tobacco Use Status: Never used Tobacco e-Cigarette/Vaping Use: Never Used Second Hand Smoke Exposure: No service: No Current occupational status: employed Current occupational exposures/hazards: No Cognitive needs: No Hearing needs: No Vision needs: Yes Physical Exam Const General: healthy appearing Nutritional Appearance: well nourished Orientation/consciousness: patient oriented x3 Chest Other: Seroma in the right chest wall. No changes in the left. After assuring informed consent a needle aspiration was performed of the right chest status post mastectomy. Approximately 205 mL of thin bloody fluid was aspirated. The patient tolerated the procedure very well. Chest/axillae images: 2 1. 2. Neuro General: patient oriented x3 Quality Reporting (2019) Adult ([facility] 138/06/09/68) Smoking risk assessment performed?: Yes Patient Tobacco Use Status: Never used Tobacco Assessment & Plan Assessment & Plan (1) Pseudoangiomatous stromal hyperplasia of breast: Code(s): N64.89 - Other specified disorders of breast Category: Medical Plan Status post bilateral mastectomy, right chest wall seroma. Aspirated 205 mL of serosanguineous fluid. Patient will return in 1 week for re-evaluation and possible reaspiration. Coding Level of Care Code Global (57965) Diagnoses Pseudoangiomatous stromal hyperplasia of breast N64.89
== END 2024-04-16 12:06 | disposition home or self-care (01) ==
LOC: HO.HGS 11:49
PROVIDERS: PCP Internal Medicine; Visit Provider Surgery
DX: N64.89 Other specified disorders of breast (principal)
CPT/HCPCS: 99024

== ENCOUNTER → 2024-04-16 11:49 | Outpatient (BNVA) | payer OTHER, SELFPAY | PROVIDERS: PCP Internal Medicine; Visit Provider Surgery | DX: N64.89 Other specified disorders of breast (principal); Z90.13 Acquired absence of bilateral breasts and nipples | CPT/HCPCS: 99212 ==

== ENCOUNTER 2024-04-24 | Outpatient (REF) | payer OTHER, SELFPAY | END 2024-04-24 00:01 | disposition home or self-care (01) | LOC: CF | PROVIDERS: PCP Internal Medicine; Visit Provider Surgery | DX: L03.313 Cellulitis of chest wall (principal); N64.4 Mastodynia; N64.89 Other specified disorders of breast | CPT/HCPCS: 99212 ==

== ENCOUNTER 2024-04-24 12:46 | Outpatient (AMB) | payer OTHER, SELFPAY ==
--- NOTE | 2024-04-24 12:46 | MHC.OFFVIS ---
Vital Signs 04/24/24 12:52 Height 5 ft 5 in Weight 227 lb 1.218 oz BMI 37.8 Pulse 82 Intake Visit Reasons: 1wk S/P Mastectomy (R) breast seroma Intake Note: Patient is seen in office for one week follow up visit, post bilateral mastectomy. Pt c/o: per pt more liquid than last visit, possible aspiration Final Inspection Supervisor Required: Yes Final Inspection Supervisor Language: Custom Feed Corn Operator Services: Final Inspection Supervisor Present Final Inspection Supervisor Name: Maggie HORTON Information Interpreted: non-clinical & clinical Manager Business Management: Manager Business Management Present Accompanied by: Family/Other Allergies environmental allergies Allergy (Intermediate, Verified 04/24/24 12:48) SOB, itchy throat grass pollen Allergy (Intermediate, Verified 04/24/24 12:48) shortness of breath, itchy throat, itchy HPI Comments Details: Patient notes increased swelling and redness in the right chest wall. She also notes increased pain today. Returns for possible seroma aspiration. [facility] Medical History Anemia Helicobacter pylori (H. pylori) infection Lumbar transverse process fracture Polyarthralgia Hand numbness Chronic fatigue Back pain Hypertension Asthma Surgical History S/P bilateral mastectomy (03/19/24) History of breast lump/mass excision (09/20/22) History of esophagogastroduodenoscopy (EGD) (01/26/24) H/O breast surgery H/O right breast biopsy Family History Father Cardiac murmur CVD (cardiovascular disease) Mother Diabetes Hypertension Sister No problems noted. Brother No problems noted. Brother No problems noted. Brother No problems noted. Social History Household Members: Family Housing: House Are you a primary health care legal assistant to a significant other at home: No Do you presently have visiting nurse or other home services: No 75 years or older and lives alone: No Alcohol intake: current Alcohol intake frequency: does not drink Alcohol type: beer Comment: aware of trip hazard Patient Tobacco Use Status: Never used Tobacco e-Cigarette/Vaping Use: Never Used Second Hand Smoke Exposure: No service: No Current occupational status: employed Current occupational exposures/hazards: No Cognitive needs: No Hearing needs: No Vision needs: Yes Physical Exam Vital Signs: Last Vital Signs Pulse 82 04/24/24 12:52 BMI result Body Mass Index 37.8 Chest Other: Right chest wall with some erythema and thickening of the skin suggestive of a early cellulitis. Some fluctuance is noted suggestive of a cellulitis. The skin was prepped with Betadine and local anesthetic (lidocaine 1% with epinephrine) was infiltrated just below the incision. An 18 gauge needle was used to aspirate approximately 90 mL of blood-tinged thin fluid. No further fluctuance is identified. Quality Reporting (2019) Adult ([facility] 13806/09/68) Smoking risk assessment performed?: Yes Patient Tobacco Use Status: Never used Tobacco Assessment & Plan Assessment & Plan (1) Cellulitis: Code(s): L03.90 - Cellulitis, unspecified Category: Medical Qualifiers: Site of cellulitis: trunk Site of cellulitis of trunk: chest wall Qualified Code(s): L03.313 - Cellulitis of chest wall (2) Breast pain: Code(s): N64.4 - Mastodynia Category: Medical (3) Pseudoangiomatous stromal hyperplasia of breast: Code(s): N64.89 - Other specified disorders of breast Category: Medical Plan Patient returns today for aspiration of a seroma. Approximately 90 mL of blood-tinged thin fluid was aspirated. Patient tolerated this well. I will start her on oral antibiotics today and she will return in 1 week for repeat examination and possible aspiration. Medications: New doxycycline hyclate 100 mg PO BID 20 tabs 0RF L03.90 - Cellulitis, unspecified Coding Level of Care Code Global (79050) Diagnoses Cellulitis of chest wall L03.313 Site of cellulitis: trunk Site of cellulitis of trunk: chest wall Breast pain N64.4 Pseudoangiomatous stromal hyperplasia of breast N64.89
[2024-04-24 12:52] VITALS: PULSE 82; BMI 37.8
== END 2024-04-24 13:07 | disposition home or self-care (01) ==
PROVIDERS: PCP Internal Medicine; Visit Provider Surgery
DX: L03.313 Cellulitis of chest wall (principal); N64.4 Mastodynia; N64.89 Other specified disorders of breast
CPT/HCPCS: 99024

== ENCOUNTER 2024-04-26 09:04 | Outpatient (AMB) | payer OTHER, SELFPAY ==
--- NOTE | 2024-04-26 09:00 | A.OFFWM_ITS ---
Intake Intake Visit Reasons: (TV) BH F/U Allergies environmental allergies Allergy (Intermediate, Verified 04/24/24 12:48) SOB, itchy throat grass pollen Allergy (Intermediate, Verified 04/24/24 12:48) shortness of breath, itchy throat, itchy PFSH Medical History Anemia Helicobacter pylori (H. pylori) infection Lumbar transverse process fracture Polyarthralgia Hand numbness Chronic fatigue Back pain Hypertension Asthma Surgical History S/P bilateral mastectomy (03/19/24) History of breast lump/mass excision (09/20/22) History of esophagogastroduodenoscopy (EGD) (01/26/24) H/O breast surgery H/O right breast biopsy Family History Father Cardiac murmur CVD (cardiovascular disease) Mother Diabetes Hypertension Sister No problems noted. Brother No problems noted. Brother No problems noted. Brother No problems noted. Social History Household Members: Family Housing: House Are you a primary caretaker to a significant other at home: No Do you presently have visiting nurse or other home services: No 75 years or older and lives alone: No Alcohol intake: current Alcohol intake frequency: does not drink Alcohol type: beer Comment: aware of trip hazard Patient Tobacco Use Status: Never used Tobacco e-Cigarette/Vaping Use: Never Used Second Hand Smoke Exposure: No service: No Current occupational status: employed Current occupational exposures/hazards: No Cognitive needs: No Hearing needs: No Vision needs: Yes Behavioral Health Assessment Weight Management Therapy Therapy Notes Details Subjective: -Patient reports struggling with recover y following a breast procedure. She is currently dealing with an infection, inflammation, and the development of cellulitis. -Patient is attending weekly appointment s for fluid aspiration. -She also mentions having gained weight, with a current weight of 227 lbs as of Tuesday. -Patient acknowledges not engaging in ex ercise but continues to follow the prescribed meal plan. -She began working again on Tuesday. Objective: PT presents for a f/up visit via Telehealth. . Active listening, discussed functioning and ongoing challenges with her health. Today we focused on hunger cues, needs and body/physiological responses when tired, eating unhealthy, not following an active life. Then we paired with her experiences, to understand, eating patterns (specially eating when bored or when not busy). Constructive feedback for behavioral modification provided. Biases addressed as well of coping methods for stress. CBT approach implemented today to continue working toward eating, weight-loss and healthy lifestyle. Assessment/Response: * Mental status: WNL * Risk reported/identified: None PT active, responded well to interventions. Plan: continue meeting on a monthly basis for support. Next sathish: 05/24/2024 at 9am, PV Food/Weight/Diet Expectations of change Weight on 04/24/2024 at 's visit: 227 Lbs . New meal plan: 2Hb eggs, 1 shake, 1 bar, dinner 8F/8F - However, PT was not sure about it. Exercise plan: stationary bike and treadmill 5 days at week for 400calories. Assessment & Plan Assessment & Plan (1) Obesity (BMI 30-39.9): Code(s): E66.9 - Obesity, unspecified (2) Adjustment disorder: Code(s): F43.20 - Adjustment disorder, unspecified Plan continue meeting on a monthly basis for support. Next sathish: 05/24/2024 at 9am, PV Telehealth Telehealth Telehealth Platform: [facility] Location of provider rendering services: other Location of patient: address on file Patient Identification confirmed using: Name, : Yes Telehealth method: voice only Patient verbally consented to treatment: Yes Patient verbally consented to billing insurance company: Yes Patient informed of any privacy concerns related to visit: Yes Minutes spent on Phone/Video with Pt.: 60 Coding Level of Care Code Established Pt Tele Psytx >53 mins (87610) Patient Type Established Diagnoses Obesity (BMI 30-39.9) E66.9 Adjustment disorder F43.20 Time Spent (min) 60
== END 2024-04-26 10:06 | disposition home or self-care (01) ==
LOC: HO.HBST 09:04
PROVIDERS: PCP Internal Medicine; Visit Provider Counselor Mental Health
DX: E66.9 Obesity, unspecified (principal); F43.20 Adjustment disorder, unspecified
CPT/HCPCS: 90837

== ENCOUNTER 2024-05-01 15:39 | Outpatient (AMB) | payer OTHER, SELFPAY ==
--- NOTE | 2024-05-01 15:41 | A.OFFVIS_ITS ---
Vital Signs 3 05/01/24 15:46 Height 5 ft 5 in Weight 227 lb 1.218 oz BMI 37.8 BP 130/80 Blood Pressure Location Lt brachial Position Sitting Intake Visit Reasons: s/p b/L mastectomy, wound check lt side Intake Note: Patient is seen in office for wound check, post bilateral mastectomy. Pt c/o: still has redness and some swelling in the left breast, still taking antbx Full Decator Operator Required: Yes Full Decator Operator Language: Jail Keeper Services: Full Decator Operator Present Full Decator Operator Name: Maggie HORTON Information Interpreted: non-clinical & clinical Accompanied by: Self / Same As Patient Allergies environmental allergies Allergy (Intermediate, Verified 05/01/24 15:45) SOB, itchy throat grass pollen Allergy (Intermediate, Verified 05/01/24 15:45) shortness of breath, itchy throat, itchy Medication List - Last Reconciled 05/02/24 by Rei Acevedo MD docusate sodium (Colace) 100 mg PO BID doxycycline hyclate 100 mg PO BID epinephrine 0.3 mg (0.3 mL) IM DIRECTED PRN 30 days ferrous sulfate (iron) 325 mg PO DAILY losartan 50 mg PO DAILY 90 days omeprazole 40 mg PO DAILY oxycodone 5 mg PO Q4H PRN semaglutide (weight loss) (Wegovy) 0.5 mg (0.5 mL) subcut QWEEK 4 weeks semaglutide (weight loss) (Wegovy) 1 mg (0.5 mL) subcut Q7D 4 weeks Ventolin HFA 90 mcg/actuation (albuterol sulfate) 2 puffs inhalation Q6H PRN 30 days NS HPI Comments Details: Patient returns for postop wound check following bilateral mastectomies. She reports still having some redness in the right chest but is unsure of more fluid has accumulated. She denies any fever or chills. [facility] Medical History Anemia Helicobacter pylori (H. pylori) infection Lumbar transverse process fracture Polyarthralgia Hand numbness Chronic fatigue Back pain Hypertension Asthma Surgical History S/P bilateral mastectomy (03/19/24) History of breast lump/mass excision (09/20/22) History of esophagogastroduodenoscopy (EGD) (01/26/24) H/O breast surgery H/O right breast biopsy Family History Father Cardiac murmur CVD (cardiovascular disease) Mother Diabetes Hypertension Sister No problems noted. Brother No problems noted. Brother No problems noted. Brother No problems noted. Social History Household Members: Family Housing: House Are you a primary care transition mgr to a significant other at home: No Do you presently have visiting nurse or other home services: No 75 years or older and lives alone: No Alcohol intake: current Alcohol intake frequency: does not drink Alcohol type: beer Comment: aware of trip hazard Patient Tobacco Use Status: Never used Tobacco e-Cigarette/Vaping Use: Never Used Second Hand Smoke Exposure: No service: No Current occupational status: employed Current occupational exposures/hazards: No Cognitive needs: No Hearing needs: No Vision needs: Yes Physical Exam Vital Signs: Last Vital Signs BP 130/80 05/01/24 15:46 BMI result Body Mass Index 37.8 Const General: no acute distress Nutritional Appearance: well nourished Orientation/consciousness: patient oriented x3 Chest Other: Right chest wall with minimal erythema remaining with some induration of the skin flaps but no definite palpable seroma at this time. No seroma noted in the left breast either. Chest/axillae images: 2 1. 2. Resp Effort & Inspection: normal respiratory effort Neuro General: patient oriented x3 Extrem Other: No edema Quality Reporting (2019) Adult ([facility] 138/2/) Smoking risk assessment performed?: Yes Patient Tobacco Use Status: Never used Tobacco Assessment & Plan Assessment & Plan (1) Pseudoangiomatous stromal hyperplasia of breast: Code(s): N64.89 - Other specified disorders of breast Category: Medical Plan 44-year-old female patient status post bilateral simple mastectomies for bilateral multifocal breast lumps. Examination today reveals only minimal erythema remaining. She should continue with the antibiotics as prescribed. No residual seroma is noted. Patient should return in approximately 2 weeks for follow-up examination. Coding Level of Care Code Global (34961) Diagnoses Pseudoangiomatous stromal hyperplasia of breast N64.89
[2024-05-01 15:46] VITALS: BP 130/80; BMI 37.8
== END 2024-05-01 16:10 | disposition home or self-care (01) ==
PROVIDERS: PCP Internal Medicine; Visit Provider Surgery
DX: N64.89 Other specified disorders of breast (principal)
CPT/HCPCS: 99024

== ENCOUNTER → 2024-05-01 15:39 | Outpatient (BNVA) | payer OTHER, SELFPAY | PROVIDERS: PCP Internal Medicine; Visit Provider Surgery | DX: N64.89 Other specified disorders of breast (principal); Z48.817 Encounter for surgical aftercare following surgery on the skin and subcutaneous tissue; Z90.13 Acquired absence of bilateral breasts and nipples | CPT/HCPCS: 99212 ==

== ENCOUNTER 2024-05-24 09:08 | Outpatient (AMB) | payer OTHER, SELFPAY ==
--- NOTE | 2024-05-24 09:05 | A.OFFWM_ITS ---
Intake Intake Visit Reasons: TV BH F/U Allergies environmental allergies Allergy (Intermediate, Verified 05/29/24 14:22) SOB, itchy throat grass pollen Allergy (Intermediate, Verified 05/29/24 14:22) shortness of breath, itchy throat, itchy PFSH Medical History Anemia Helicobacter pylori (H. pylori) infection Lumbar transverse process fracture Polyarthralgia Hand numbness Chronic fatigue Back pain Hypertension Asthma Surgical History S/P bilateral mastectomy (03/19/24) History of breast lump/mass excision (09/20/22) History of esophagogastroduodenoscopy (EGD) (01/26/24) H/O breast surgery H/O right breast biopsy Family History Father Cardiac murmur CVD (cardiovascular disease) Mother Diabetes Hypertension Sister No problems noted. Brother No problems noted. Brother No problems noted. Brother No problems noted. Social History Household Members: Family Housing: House Are you a primary care program director to a significant other at home: No Do you presently have visiting nurse or other home services: No Alcohol intake: current Alcohol intake frequency: does not drink Alcohol type: beer Comment: aware of trip hazard Patient Tobacco Use Status: Never used Tobacco e-Cigarette/Vaping Use: Never Used Second Hand Smoke Exposure: No service: No Current occupational status: employed Current occupational exposures/hazards: No Cognitive needs: No Hearing needs: No Vision needs: Yes Behavioral Health Assessment Weight Management Therapy Therapy Notes Details Subjective: PT reports she continues interested in bariatric surgery and reports doing well overall, with no mental health concerns at this time. She is working on her alexandr [place] for surgery and expresses a positive attitude towards the process. She expressed some frustration with the limitations but remains motivated to continue her progress. Objective: PT presents for a f/up visit over the phone. We discussed her functioning, ongoing medical issues and excercise limitations as she's not cleared yet after breast surgery and it complications. Brainstormed ways for the patient to stay consistent with physical activity while awaiting clearance for gym use. Ideas discussed included walking, stretching, and low-impact home exercises. We also reviewed the importance of regular movement in maintaining overall health and supporting her bariatric surgery goals. Assessment/Response: * Mental Status: The patient was alert, oriented, and engaged in the conversation. She was cooperative and demonstrated a positive attitude toward her health goals. No signs of acute distress or mood concerns were observed during the session. * Risk Reported/Identified: No significant mental health risks were identified. Food/Weight/Diet Expectations of change The initial Goal is to lose at least 1.5-2lbs per week, and about 10% before surgery, which is about 24 pounds. Target Pre-surgery weight: 211 lbs. PT started the program in at 235 lb Weight on 04/24/2024 at 's visit: 227 Lbs Weight as of 05/19/2024: 225Lbs . New meal plan: 2Hb eggs, 1 shake, 1 bar, dinner 8F/8F - However, PT was not sure about it. Exercise plan: Hasn't attended gym since surgery in March. Assessment & Plan Assessment & Plan (1) Obesity (BMI 30-39.9): Code(s): E66.9 - Obesity, unspecified (2) Adjustment disorder: Code(s): F43.20 - Adjustment disorder, unspecified Plan A follow-up session will be scheduled in 1 month to further assess readiness for surgery and discuss any new developments and provide support with readiness for weight-loss surgery. Telehealth Telehealth Telehealth Platform: [facility] Location of provider rendering services: other Location of patient: address on file Patient Identification confirmed using: Name, : No Telehealth method: voice only Patient verbally consented to treatment: Yes Patient verbally consented to billing insurance company: Yes Patient informed of any privacy concerns related to visit: Yes Minutes spent on Phone/Video with Pt.: 50 Coding Level of Care Code Established Pt Tele Psytx 45 mins (20207) Patient Type Established Diagnoses Obesity (BMI 30-39.9) E66.9 Adjustment disorder F43.20 Time Spent (min) 50
== END 2024-05-24 10:09 | disposition home or self-care (01) ==
PROVIDERS: PCP Internal Medicine; Visit Provider Counselor Mental Health
DX: E66.9 Obesity, unspecified (principal); F43.20 Adjustment disorder, unspecified
CPT/HCPCS: 90834

== ENCOUNTER 2024-05-29 14:14 | Outpatient (AMB) | payer OTHER, SELFPAY ==
--- NOTE | 2024-05-29 14:16 | MHC.OFFVIS ---
Vital Signs 05/29/24 14:22 Height 5 ft 5 in Weight 230 lb 8 oz BMI 38.4 BP 183/96 H Blood Pressure Location Lt brachial Position Sitting Pulse 82 Intake Visit Reasons: 1 mth follow up S/P Bilateral simple mastectomy Intake Note: Patient is seen in office for one month follow up visit, post bilateral mastectomy. Pt c/o: admits to swelling and fluid in the area Experience Designer Required: No Accompanied by: Family/Other Allergies environmental allergies Allergy (Intermediate, Verified 05/29/24 14:22) SOB, itchy throat grass pollen Allergy (Intermediate, Verified 05/29/24 14:22) shortness of breath, itchy throat, itchy HPI Comments Details: Patient returns for postop wound check following bilateral mastectomies. She reports having some swelling in the incision with redness in the skin earlier in the week. She is uncertain if this is due to performing heavy lifting at work. She is uncertain if there is reaccumulation of fluid in the chest wall. Denies fever or chills. [facility] Medical History Anemia Helicobacter pylori (H. pylori) infection Lumbar transverse process fracture Polyarthralgia Hand numbness Chronic fatigue Back pain Hypertension Asthma Surgical History S/P bilateral mastectomy (03/19/24) History of breast lump/mass excision (09/20/22) History of esophagogastroduodenoscopy (EGD) (01/26/24) H/O breast surgery H/O right breast biopsy Family History Father Cardiac murmur CVD (cardiovascular disease) Mother Diabetes Hypertension Sister No problems noted. Brother No problems noted. Brother No problems noted. Brother No problems noted. Social History Household Members: Family Housing: House Are you a primary critical care nurse specialist to a significant other at home: No Do you presently have visiting nurse or other home services: No 75 years or older and lives alone: No Alcohol intake: current Alcohol intake frequency: does not drink Alcohol type: beer Comment: aware of trip hazard Patient Tobacco Use Status: Never used Tobacco e-Cigarette/Vaping Use: Never Used Second Hand Smoke Exposure: No service: No Current occupational status: employed Current occupational exposures/hazards: No Cognitive needs: No Hearing needs: No Vision needs: Yes Physical Exam Const General: no acute distress Nutritional Appearance: well nourished Orientation/consciousness: patient oriented x3 Chest Other: Right chest wall with minimal erythema remaining with some induration of the skin flaps but no definite palpable seroma at this time. No seroma noted in the left breast either. Left breast is soft with no fluid. Resp Effort & Inspection: normal respiratory effort Neuro General: patient oriented x3 Extrem Other: No edema Quality Reporting (2019) Adult ([facility] 138/06/09/68) Smoking risk assessment performed?: Yes Patient Tobacco Use Status: Never used Tobacco Assessment & Plan Assessment & Plan (1) Pseudoangiomatous stromal hyperplasia of breast: Code(s): N64.89 - Other specified disorders of breast Category: Medical Plan 44-year-old female patient status post bilateral simple mastectomies for bilateral multifocal breast lumps. Examination today reveals no further seroma, erythema or cellulitis. No aspiration is required at this time. I recommended follow-up examination in 3 months, sooner p.r.n.. Coding Level of Care Code Global (13337) Diagnoses Pseudoangiomatous stromal hyperplasia of breast N64.89
[2024-05-29 14:22] VITALS: BP 183/96; PULSE 82; BMI 38.4
== END 2024-05-29 14:31 | disposition home or self-care (01) ==
PROVIDERS: PCP Internal Medicine; Visit Provider Surgery
DX: N64.89 Other specified disorders of breast (principal)
CPT/HCPCS: 99024

== ENCOUNTER → 2024-05-29 14:14 | Outpatient (BNVA) | payer OTHER, SELFPAY | PROVIDERS: PCP Internal Medicine; Visit Provider Surgery | DX: N64.89 Other specified disorders of breast (principal) | CPT/HCPCS: 99212 ==

== ENCOUNTER 2024-08-20 12:57 | Outpatient (AMB) | payer OTHER, SELFPAY ==
--- NOTE | 2024-08-20 13:00 | A.OFFVIS_ITS ---
VS Expanded 08/20/24 13:10 BP 167/69 H Blood Pressure Location Rt brachial Blood Pressure Position Sitting Pulse 91 Pulse Source Pulse Oximeter Temp 97.0 F Temperature Source Temporal Artery Scan Pulse Oximetry 100 Oxygen Delivery Method Room Air Height 5 ft 5 in Weight 231 lb 12.8 oz BMI 38.6 Body Fat % 44.1 Body Fat Mass 102.2 Fat Free Mass 129.4 Visceral Fat Rating 12.0 Body Water % 39.9 Body Water Mass 92.4 Muscle Mass/Score 122.8 Basal Metabolic Rate/Score 1,813 Intake Visit Reasons: (OV) F/U SWL *see comments* Urology Physician Assistant Required: Yes Urology Physician Assistant Services: Urology Physician Assistant Present Urology Physician Assistant Name: nico [id number] Allergies environmental allergies Allergy (Intermediate, Verified 08/20/24 13:04) SOB, itchy throat grass pollen Allergy (Intermediate, Verified 08/20/24 13:04) shortness of breath, itchy throat, itchy HPI Comments Details: Patient is a 44-year-old female who returns to the office today in follow-up. She was initially seen in the surgical weight loss program on 11/11/2023. Due to scheduling issues she has not been seen since 03/29/24. At that time, her weight was 225 lb with a BMI of 36.9. Weight today is 231.8 with a BMI of 38.6. She has lost 4 lb or 1.69% total body weight loss. Since last being seen, she underwent bilateral mastectomy on 03/19/[address] Acevedo. At the time of her initial visit, she was given information regarding the [employer] sathish. States she is not using the sathish and she has not gone in 6 weeks. This was due to work and no motivation. Meal plan: nonel Exercise none in 6 weeks [facility] Medical History Anemia Helicobacter pylori (H. pylori) infection Lumbar transverse process fracture Polyarthralgia Hand numbness Chronic fatigue Back pain Hypertension Asthma Surgical History S/P bilateral mastectomy (03/19/24) History of breast lump/mass excision (09/20/22) History of esophagogastroduodenoscopy (EGD) (01/26/24) H/O breast surgery H/O right breast biopsy Family History Father Cardiac murmur CVD (cardiovascular disease) Mother Diabetes Hypertension Sister No problems noted. Brother No problems noted. Brother No problems noted. Brother No problems noted. Social History Household Members: Family Housing: House Are you a primary healthcare customer service to a significant other at home: No Do you presently have visiting nurse or other home services: No 75 years or older and lives alone: No Alcohol intake: current Alcohol intake frequency: does not drink Alcohol type: beer Comment: aware of trip hazard Patient Tobacco Use Status: Never used Tobacco e-Cigarette/Vaping Use: Never Used Second Hand Smoke Exposure: No service: No Current occupational status: employed Current occupational exposures/hazards: No Cognitive needs: No Hearing needs: No Vision needs: Yes Physical Exam Const General: healthy appearing and no acute distress Resp Effort & Inspection: normal respiratory effort Auscultation: clear to auscultation bilaterally Cardio Rate: regular rate Rhythm: regular rhythm GI Auscultation: normal bowel sounds Extrem General: Yes normal to inspection Quality Reporting (2019) Adult ([facility] 138/06/09/68) Smoking risk assessment performed?: Yes Patient Tobacco Use Status: Never used Tobacco Assessment & Plan Assessment & Plan (1) Obesity (BMI 30-39.9): Code(s): E66.9 - Obesity, unspecified Category: Medical Plan: Patient is going to try to re commit. She will restart a new meal plan. We agreed to give this a 2 month trial. If after 2 months she is unable to commit or this is not the right program for her, she will take a break from the program and return when she is more committed. She was encouraged to continue to send weight is weekly and text with any questions or concerns. Return to clinic 2 months
[2024-08-20 13:10] VITALS: BP 167/69; PULSE 91; TEMP 36.1; O2SAT 100; BMI 38.6
== END 2024-08-20 13:29 | disposition home or self-care (01) ==
LOC: HO.HBS 12:58
PROVIDERS: PCP Internal Medicine; Visit Provider Physician Assistant Surgical
DX: E66.9 Obesity, unspecified (principal); Z68.38 Body mass index [BMI] 38.0-38.9, adult
CPT/HCPCS: 99213

== ENCOUNTER → 2024-08-20 12:57 | Outpatient (BNVA) | payer OTHER, SELFPAY | PROVIDERS: PCP Internal Medicine; Visit Provider Physician Assistant Surgical | DX: E66.9 Obesity, unspecified (principal); Z68.38 Body mass index [BMI] 38.0-38.9, adult | CPT/HCPCS: 99212 ==

== ENCOUNTER 2024-08-23 12:38 | Outpatient (REF) | payer OTHER, SELFPAY ==
--- NOTE | ~2024-08-23 | US_ITS ---
EXAMINATION: Ultrasound renal Doppler. Ultrasound renal, bilaterally. CLINICAL INFORMATION: Hypertension. COMPARISON: Ultrasound abdomen complete dated December 05, 2023. TECHNIQUE: Real-time ultrasound of the kidneys using grayscale and color Doppler technique with spectral Doppler analysis. FINDINGS: Right kidney: 11 x 4 x 5 cm. Normal echotexture. Normal renal cortical thickness. No hydronephrosis. No solid or cystic lesion. Left kidney: 12 x 6 x 5 cm. Normal echotexture. Normal renal cortical thickness. No hydronephrosis. No solid or cystic lesion. Spectral Doppler analysis: Right Kidney: -Peak systolic velocity in the proximal right renal artery = 157 cm/s. Normal waveforms. -Peak systolic velocity in the mid right renal artery = 125 cm/s. Normal waveforms. -Peak systolic velocity in the distal right renal artery = 152 cm/s. Normal waveforms. -Patent right renal vein. -Upper pole interlobar artery resistive index of 0.75. -Midpole interlobar artery resistive index of 0.6. -Lower pole interlobar artery resistive index of 0.66. RAR right = not calculated to more than 100 cm/s peak systolic velocity of the aorta. Left Kidney: -Peak systolic velocity in the proximal left renal artery = 184 cm/s. Normal waveforms. -Peak systolic velocity in the mid left renal artery = 190 cm/s. Normal waveforms. -Peak systolic velocity in the distal left renal artery = 144 cm/s. Normal waveforms. -Patent left renal vein. -Upper pole interlobar artery resistive index of 0.67. -Mid pole interlobar artery resistive index of 0.6. -lower pole interlobar artery resistive index of 0.63. RAR left = not calculated due to peak systolic velocity of the aorta more than 100 cm/s Aorta: -Peak systolic velocity = 129 cm/s. US/US renal doppler IMPRESSION: Normal renal ultrasound. No hemodynamically significant stenosis by ultrasound criteria in the right main renal artery. Slight elevated peak systolic velocity left main renal artery. Electronically signed by: David Cuellar MD 08/23/2024 01:42 PM EDT
--- NOTE | ~2024-08-23 | US_ITS ---
EXAMINATION: Ultrasound renal Doppler. Ultrasound renal, bilaterally. CLINICAL INFORMATION: Hypertension. COMPARISON: Ultrasound abdomen complete dated December 05, 2023. TECHNIQUE: Real-time ultrasound of the kidneys using grayscale and color Doppler technique with spectral Doppler analysis. FINDINGS: Right kidney: 11 x 4 x 5 cm. Normal echotexture. Normal renal cortical thickness. No hydronephrosis. No solid or cystic lesion. Left kidney: 12 x 6 x 5 cm. Normal echotexture. Normal renal cortical thickness. No hydronephrosis. No solid or cystic lesion. Spectral Doppler analysis: Right Kidney: -Peak systolic velocity in the proximal right renal artery = 157 cm/s. Normal waveforms. -Peak systolic velocity in the mid right renal artery = 125 cm/s. Normal waveforms. -Peak systolic velocity in the distal right renal artery = 152 cm/s. Normal waveforms. -Patent right renal vein. -Upper pole interlobar artery resistive index of 0.75. -Midpole interlobar artery resistive index of 0.6. -Lower pole interlobar artery resistive index of 0.66. RAR right = not calculated to more than 100 cm/s peak systolic velocity of the aorta. Left Kidney: -Peak systolic velocity in the proximal left renal artery = 184 cm/s. Normal waveforms. -Peak systolic velocity in the mid left renal artery = 190 cm/s. Normal waveforms. -Peak systolic velocity in the distal left renal artery = 144 cm/s. Normal waveforms. -Patent left renal vein. -Upper pole interlobar artery resistive index of 0.67. -Mid pole interlobar artery resistive index of 0.6. -lower pole interlobar artery resistive index of 0.63. RAR left = not calculated due to peak systolic velocity of the aorta more than 100 cm/s Aorta: -Peak systolic velocity = 129 cm/s. US/US renal BI IMPRESSION: Normal renal ultrasound. No hemodynamically significant stenosis by ultrasound criteria in the right main renal artery. Slight elevated peak systolic velocity left main renal artery. Electronically signed by: David Cuellar MD 08/23/2024 01:42 PM EDT
== END 2024-08-23 12:39 | disposition home or self-care (01) ==
LOC: HO.US 12:38
PROVIDERS: PCP Internal Medicine; Visit Provider Internal Medicine
DX: I10 Essential (primary) hypertension (principal)
CPT/HCPCS: 76775; 93975

== ENCOUNTER → 2024-08-23 12:44 | Outpatient (BNV) | payer OTHER, SELFPAY | PROVIDERS: PCP Internal Medicine; Visit Provider Radiology Diagnostic Radiology | DX: I10 Essential (primary) hypertension (principal) | CPT/HCPCS: 76775; 93975 ==

== ENCOUNTER 2024-09-21 08:21 | Emergency (ER) | payer OTHER, SELFPAY ==
--- NOTE | ~2024-09-21 | XR_ITS ---
EXAMINATION: XR CHEST 2 VIEWS HISTORY: CP, cough COMPARISON: Comparison is made with the prior examination dated 12/05/2023. FINDINGS: PA and lateral views of the chest are submitted. The lungs are expanded and clear. There is no pleural effusion, pneumothorax, or pulmonary vascular congestion. The heart is normal in size. There is degenerative disc disease of the spine. XR/XR chest 2V IMPRESSION: No acute cardiopulmonary abnormality. Electronically signed by: Anthony Eden MD 09/21/2024 10:20 AM EDT
[2024-09-21 08:29] VITALS: BP 146/76; PULSE 70; RESP 18; TEMP 36.6; O2SAT 98; BMI 36.6
--- NOTE | 2024-09-21 08:33 | ECG_ITS ---
Test Reason : chest pain Blood Pressure : */* mmHG Vent. Rate : 64 BPM Atrial Rate : 64 BPM P-R Int : 186 ms QRS Dur : 74 ms QT Int : 412 ms P-R-T Axes : 31 23 20 degrees QTcB Int : 425 ms Normal sinus rhythm Normal ECG When compared with ECG of 05-Dec-2023 08:42, No significant change was found Referred By: Generic ED Physician Electronically Signed By: KIM STANLEY
--- NOTE | 2024-09-21 09:13 | ED.CHESTPAIN ---
HPI - Chest Pain General Chief Complaint: Chest Pain Stated Complaint: High Blood Pressure Time Seen by Provider: 09/21/24 09:12 Source: patient Mode of arrival: ambulatory Limitations: no limitations History of Present Illness ED Provider: inderjit arteaga np HPI narrative: Patient is a 44-year-old female who presents emergency department for evaluation. Over the past 5 days she has been experiencing a diffuse frontal headache, left anterior chest pain that radiates down her left arm. Over the 1st 3 days her symptoms were intermittent in nature but over the past 2 days the headache and chest pain has been constant. She states that she checks her blood pressure regularly and had noticed earlier this week that it was elevated, had highest blood pressure yesterday evening of 165/108. She has been prescribed losartan 50 mg, her spouse advised her earlier this week to increase her losartan to 100 mg, she did speak with the primary care doctor yesterday who did not fact advise her to increase to 100 mg. She has been doing this over the past 3 days or so. This morning her blood pressure was 152/104 and given she was still having the symptoms she decided to seek evaluation in the emergency department. She denies dizziness, lightheadedness, vision changes, neck pain, neck stiffness, shortness of breath, difficulty breathing, nausea, vomiting, abdominal pain, numbness or tingling of the extremities. She does admit to having seasonal allergies recently with some intermittent nasal congestion and a nonproductive cough as well Related Data Previous Rx's ?Medication ?Instructions ?Recorded epinephrine 0.3 mg/0.3 mL 0.3 mg (0.3 mL) IM DIRECTED PRN 08/17/23 injection, auto-injector anaphylaxis 30 days #2 ea omeprazole 40 mg capsule,delayed 40 mg PO DAILY #14 caps 02/25/24 release docusate sodium 100 mg capsule 100 mg PO BID #30 caps 03/22/24 (Colace) oxycodone 5 mg tablet 5 mg PO Q4H PRN pain (scale score 03/22/24 7-10) #20 tabs semaglutide (weight loss) 0.5 0.5 mg (0.5 mL) subcut QWEEK 4 03/22/24 mg/0.5 mL subcutaneous pen weeks #2 mL injector (Josh) doxycycline hyclate 100 mg tablet 100 mg PO BID #20 tabs 04/24/24 semaglutide (weight loss) 1 mg/0.5 1 mg (0.5 mL) subcut Q7D 4 weeks 04/25/24 mL subcutaneous pen injector #2 mL (Wegovy) semaglutide (weight loss) 1 mg/0.5 1 mg (0.5 mL) subcut Q7D 4 weeks 05/16/24 mL subcutaneous pen injector #2 mL (Wegovy) Ventolin HFA 90 mcg/actuation 2 puff inhalation Q6H PRN 08/12/24 aerosol inhaler (albuterol sulfate) shortness of breath or wheezing 30 days #8 grams ferrous sulfate 325 mg (65 mg 325 mg PO DAILY #90 tabs 09/14/24 iron) tablet (iron) losartan 100 mg tablet 100 mg PO DAILY 90 days #90 tabs 09/20/24 Allergies Allergy/AdvReac Type Severity Reaction Status Date / Time environmental allergies Allergy Intermediate SOB, itchy Verified 09/21/24 08:33 throat grass pollen Allergy Intermediate shortness Verified 09/21/24 08:33 of breath, itchy throat, itchy Review of Systems Review of Systems: Yes all other systems are reviewed and are negative PMF Past Medical History Attestation statement: The following information was validated with the patient. Source: old records reviewed Medical History Anemia Helicobacter pylori (H. pylori) infection Lumbar transverse process fracture Polyarthralgia Hand numbness Chronic fatigue Back pain Hypertension Asthma Surgical History S/P bilateral mastectomy (03/19/24) History of breast lump/mass excision (09/20/22) History of esophagogastroduodenoscopy (EGD) (01/26/24) H/O breast surgery H/O right breast biopsy Family History Family History Father Cardiac murmur CVD (cardiovascular disease) Mother Diabetes Hypertension Sister No problems noted. Brother No problems noted. Brother No problems noted. Brother No problems noted. Social History Social History Household Members: Family Housing: House Are you a primary healthcare administration internship to a significant other at home: No Do you presently have visiting nurse or other home services: No Alcohol intake: current Alcohol intake frequency: holidays/special occasions only Alcohol type: beer Comment: aware of trip hazard Patient Tobacco Use Status: Never used Tobacco Smoked in Last 30 Days: No e-Cigarette/Vaping Use: Never Used Second Hand Smoke Exposure: No Advance Directives: No Advance Directives Information Provided: Yes Do you have a plan to hurt others: No Plan service: No Current occupational status: employed Current occupational exposures/hazards: No Cognitive needs: No Hearing needs: No Vision needs: Yes Physical Exam Vital Signs: Vital Signs: Last Vital Signs Temp 97.8 F 09/21/24 08:29 Pulse 67 09/21/24 09:16 Resp 18 09/21/24 08:29 BP 137/70 09/21/24 09:16 Pulse Ox 98 09/21/24 08:29 O2 Del Method Room Air 09/21/24 08:29 BMI result Body Mass Index 36.6 Appearance: Alert.?Oriented to person, place and time. No acute distress.?Normal affect. Eyes: Pupils equal, round and reactive to light.? ENT: Pharynx normal.?? Neck: Normal inspection.? Neck supple.??No JVD. CVS: Heart sounds normal. Normal heart rate and rhythm.? Pulses normal.?? Respiratory: No respiratory distress.? Lung sounds clear to auscultation bilaterally?? Abdomen: Soft and non-tender. Normoactive bowel sounds. No pulsatile mass.?? Skin: Skin warm and dry.? Normal skin color.? ?? Extremities: No lower extremity edema.? No calf ttp? Neuro: No focal neurological deficit observed, CN II-XII intact, normal sensory observed, normal coordination observed. Level of consciousness: Appropriate for age. Motor strength: Proximal right upper extremity 5 /5, distal right upper extremity 5 /5, proximal left upper extremity 5 /5, distal left upper extremity 5 /5, right lower extremity 5 /5, left lower extremity 5 /5.?Speech: Normal, Gait: Normal, Course Reevaluation(s) Reevaluation #1: Symptoms have been for the past 5 days, constant over the past 2 days as per HPI. She is overall well-appearing, nontoxic. Vital signs are stable. BP 137/70. CBC is without leukocytosis, no significant anemia or thrombocytopenia. No electrolyte derangement. No SOLEDAD. High sensitive troponin below detectable limits, given duration of symptoms I do not suspect ACS as etiology at this time with a negative troponin. Chest x-ray is without acute pathology. At this time I feel that she is stable for discharge home, atypical chest pain she may follow-up outpatient, given strict return precautions. All questions answered. Ambulatory with steady gait. Medications Administered Discontinued Medications Generic Name Dose Route Start Last Admin Trade Name Melody PRN Reason Stop Dose Admin Acetaminophen 975 mg 09/21/24 10:32 09/21/24 10:38 Acetaminophen 325 Mg Tablet PO 09/21/24 10:33 975 mg ONCE ONE Administration Medical Decision Making Medical Decision Making [facility] Narrative: Patient is a 44 year old female with past medical history of hypertension, asthma, polyarthralgia, chronic fatigue who presents to the emergency department for evaluation with complaint of hypertension, headache, chest pain. No evidence of volume overload or shock on exam. ECG without signs of acute ischemia, ECG on arrival to emergency department reveals a normal sinus rhythm with ventricular rate of 64, normal AHMET, QTC 425, no ST-elevation. Low suspicion for acute PE (Wells low risk), pneumothorax, thoracic aortic dissection, cardiac effusion / tamponade. No recent trauma or injury, no tracheal deviation, unlikely tension pneumothorax. No recent URI symptoms to suggest viral illness, pneumonia, costochondritis. No abdominal tenderness upon palpation, negative Miranda sign, unlikely acute cholecystitis, choledocholithiasis, no fever or jaundice to suggest acute cholangitis, may possibly be biliary colic secondary to cholelithiasis I suspect this is less likely. Denies associated acid reflux, no tenderness upon palpation over the epigastrium or left upper quadrant to suggest gastritis, no recent hematemesis history less likely to suggest PUD. Denies excessive alcohol consumption, history of diabetes, lower suspicion acute pancreatitis. Headache is without any red flag symptoms, no focal neurological deficits on examination, low suspicion for ICH, SDH, intracranial mass. Discussed with the patient may be secondary to allergic rhinitis versus side effect from elevated BP. Differential Diagnosis Differential Diagnoses: The differential diagnosis associated with the presentation includes (See narrative above) Admission/Observation Consideration of admission/observation: Escalation of care including admission/observation considered (See narrative above and course narrative for further detail) Lab Data MDM Lab Attestation statement: I reviewed the patient's lab results. 09/21/24 09:31 09/21/24 09:31 Labs: Lab Results 09/21/24 Range/Units 09:31 WBC 8.0 (4.8-10.8) X10*3/uL RBC 4.89 D (4.20-5.50) X10*6/uL Hgb 11.8 L D (12.0-16.0) g/dl Hct 37.8 D (37.0-47.0) % MCV 77.3 L (80.0-98.0) fL MCH 24.1 L (27.0-33.0) pg MCHC 31.2 (31.0-35.0) g/dl RDW 17.4 H (11.0-16.0) % Plt Count 319 (160-400) X10*3/uL MPV 9.2 L (9.4-12.3) fL Immature Gran % (Auto) 0.2 (0.0-0.4) % Neut % (Auto) 57.8 (45-73) % Lymph % (Auto) 35.1 (20-40) % [place] % (Auto) 5.0 (2-11) % Eos % (Auto) 1.7 (0-4) % Baso % (Auto) 0.2 (0-2) % Lymph # (Auto) 2.8 (1.2-4.9) X10*3/uL [place] # (Auto) 0.4 (0.1-1.2) X10*3/uL Eos # (Auto) 0.1 (0.0-0.4) X10*3/uL Baso # (Auto) 0.0 (0.0-0.2) X10*3/uL Abs Immat Gran (auto) 0.02 (0.00-0.03) X10*3/uL Absolute Neuts (auto) 4.6 (2.0-8.3) x10*3/uL Absolute Nucleated RBC 0.000 (0.0-0.012) X10*3/uL Nucleated RBC % (auto) 0.0 (0.0-0.2) /100WBC Sodium 138 (135-145) mmol/L Potassium 4.5 (3.3-5.1) mmol/L Chloride 106 (96-108) mmol/L Carbon Dioxide 26 (22-29) mmol/L Anion Gap 11 L (12-20) BUN 17 H (9-16) mg/dL Creatinine 0.83 (0.5-1.4) mg/dL Estim Creat Clear Calc 103.6 Estimated GFR > 60 Random Glucose 105 (60-115) mg/dL Calcium 9.3 (8.4-10.2) mg/dL Troponin I High Sens < 2.7 (<3.5-17.0) ng/L Independent Interpretation I performed an independent interpretation of an: EKG (See narrative above) and Plain X-Ray (No consolidation infiltrate to suggest pneumonia, no pleural effusions) Radiology Impression Discussion of test interpretation with radiology: I have reviewed the radiologist's reading. Radiologist Impression: XR/XR chest 2V IMPRESSION: No acute cardiopulmonary abnormality. Independent Historian Clinical information obtained from an independent historian. History obtained from or confirmed by: Spouse External Record Review External record reviewed: Outpatient record Chronic Conditions Patient?s care impacted by: Other (See narrative above) Discharge Plan Discharge Clinical Impression: Atypical chest pain Patient Disposition: Home, Self-Care Instructions: Chest Pain (ED) Additional Instructions: As discussed, it may take up to 2 weeks to notice change in your blood pressure readings from a dosage change in your blood pressure medication. I would not suggest additional dosage changes at this time, your blood pressure on arrival to emergency department today was 146/76 in your pulse was normal. Blood work today including cardiac enzyme markers/troponin was normal, EKG without concerning findings such as indicators of a heart attack. Chest x-ray does not show any abnormal findings. It is recommended that you check your blood pressure 3 times weekly about 2 hours after taking your blood pressure medication when you were calm rested and sitting without your legs crossed. Please contact your primary care provider to arrange for a follow-up visit within 3 days. You may return back to emergency department any new or worsening symptoms or concerns which includes but is not limited to severe worsening headache, dizziness, lightheadedness, vision changes, neck pain, neck stiffness, worsening chest pain, shortness of breath, difficulty breathing, numbness or tingling of the extremities Prescriptions: No Action omeprazole 40 mg capsule,delayed release(DR/EC) 40 mg PO DAILY Qty: 14 0RF Wegovy 0.5 mg/0.5 mL pen injector 0.5 mg subcut QWEEK 28 Days Qty: 2 0RF Rx Instructions: administer weeks 5 through 8 of therapy Wegovy 1 mg/0.5 mL pen injector 1 mg subcut Q7D 28 Days Qty: 2 0RF Wegovy 1 mg/0.5 mL pen injector 1 mg subcut Q7D 28 Days Qty: 2 0RF albuterol sulfate [Ventolin HFA] 90 mcg/actuation HFA aerosol inhaler 2 puff inhalation Q6H PRN (Reason: shortness of breath or wheezing) 30 Days Qty: 8 2RF ferrous sulfate [iron] 325 mg (65 mg iron) tablet 325 mg PO DAILY Qty: 90 0RF losartan 100 mg tablet 100 mg PO DAILY 90 Days Qty: 90 1RF docusate sodium [Colace] 100 mg capsule 100 mg PO BID Qty: 30 0RF oxycodone 5 mg tablet 5 mg PO Q4H PRN (Reason: pain (scale score 7-10)) Qty: 20 0RF Rx Instructions: Partial Fill upon patient request. epinephrine 0.3 mg/0.3 mL auto-injector 0.3 mg IM DIRECTED PRN (Reason: anaphylaxis) 30 Days Qty: 2 1RF doxycycline hyclate 100 mg tablet 100 mg PO BID Qty: 20 0RF Referrals: Val Eagle MD [Primary Care Provider] - Print Language: Divehi
[2024-09-21 09:16] VITALS: BP 137/70; PULSE 67
--- NOTE | 2024-09-21 09:34 | PC.NURSE ---
Pt A&O X4 Reports P and MA X4 days- nausea with CP. VSS SR no ectopy on full monitor. Pt states SOB but appears breathing WNL. Poacher Wringer Operator at bedside for assessment.
[2024-09-21 09:35] LABS: MANUAL DIFF FLAG NO
[2024-09-21 09:39] LABS: Basophils Percent Auto 0.2 % (0-2); Eosinophils Absolute Auto 0.1 X10*3/uL (0.0-0.4); Eosinophils Percent Auto 1.7 % (0-4); Hematocrit 37.8 % (37.0-47.0); Hemoglobin 11.8 g/dl (12.0-16.0); Imm Gran Abs Auto 0.02 X10*3/uL (0.00-0.03); Imm Gran Pct Auto 0.2 % (0.0-0.4); Lymphocytes Absolute Auto 2.8 X10*3/uL (1.2-4.9); Lymphocytes Percent Auto 35.1 % (20-40); Mean Corpuscular HGB Conc 31.2 g/dl (31.0-35.0); Mean Corpuscular Hemoglobin 24.1 pg (27.0-33.0); Mean Corpuscular Volume 77.3 fL (80.0-98.0); Mean Platelet Volume 9.2 fL (9.4-12.3); Monocytes Absolute Auto 0.4 X10*3/uL (0.1-1.2); Neutrophils Absolute Auto 4.6 x10*3/uL (2.0-8.3); Neutrophils Percent Auto 57.8 % (45-73); Platelet Count 319 X10*3/uL (160-400); Red Blood Count 4.89 X10*6/uL (4.20-5.50); Red Cell Distribution Width 17.4 % (11.0-16.0)
[2024-09-21 09:51] LABS: Anion Gap 11 (12-20); Blood Urea Nitrogen 17 mg/dL (9-16); Calcium 9.3 mg/dL (8.4-10.2); Carbon Dioxide 26 mmol/L (22-29); Chloride 106 mmol/L (96-108); Creatinine Clr Calc Pharmacy 103.6; Estimated Glomerular Filt Rate > 60; Glucose Random 105 mg/dL (60-115); Potassium 4.5 mmol/L (3.3-5.1); Sodium 138 mmol/L (135-145)
[2024-09-21 10:05] LABS: Troponin-I High Sensitivity < 2.7 ng/L (<3.5-17.0)
[2024-09-21] MEDS: Acetaminophen 325 MG TABLET 975 MG PO (10:38)
[2024-09-21 11:28] VITALS: BP 137/70; PULSE 67; RESP 18; TEMP 36.8; O2SAT 98
== END 2024-09-21 11:29 | disposition home or self-care (01) ==
PROVIDERS: Emergency Provider Emergency Medicine; PCP Internal Medicine
DX: R07.89 Other chest pain (principal); R51.9 Headache, unspecified; M79.602 Pain in left arm; I10 Essential (primary) hypertension; Z79.899 Other long term (current) drug therapy
CPT/HCPCS: 36415; 71046; 80048; 84484; 85025; 93005; 99284; 99285

== ENCOUNTER → 2024-09-21 08:33 | Outpatient (BNV) | payer OTHER, SELFPAY | PROVIDERS: Emergency Provider Emergency Medicine; PCP Internal Medicine; Visit Provider Internal Medicine | DX: R07.9 Chest pain, unspecified (principal) | CPT/HCPCS: 93010 ==

== ENCOUNTER → 2024-09-21 09:56 | Outpatient (BNV) | payer OTHER, SELFPAY | PROVIDERS: Emergency Provider Emergency Medicine; PCP Internal Medicine; Visit Provider Radiology Diagnostic Radiology | DX: R07.9 Chest pain, unspecified (principal) | CPT/HCPCS: 71046 ==

== ENCOUNTER 2024-10-22 11:28 | Outpatient (AMB) | payer OTHER, SELFPAY ==
--- NOTE | 2024-10-22 11:30 | MHC.OFFVIS ---
Vital Signs 10/22/24 11:33 Height 5 ft 6 in Weight 223 lb BMI 36.0 BP 112/72 Blood Pressure Location Lt brachial Position Sitting Intake Visit Reasons: 3 mth follow up S/P Bilateral simple mastectomy Intake Note: Patient is seen in office for 3 month follow up visit, post bilateral mastectomy. Logistics Operations Director Services: Logistics Operations Director Offered & Declined Information Interpreted: clinical only Accompanied by: Allergies environmental allergies Allergy (Intermediate, Verified 10/22/24 11:35) SOB, itchy throat grass pollen Allergy (Intermediate, Verified 10/22/24 11:35) shortness of breath, itchy throat, itchy Medication List - Last Reconciled 10/22/24 by Anamaria Taylor LPN docusate sodium (Colace) 100 mg PO BID epinephrine 0.3 mg (0.3 mL) IM DIRECTED PRN 30 days ferrous sulfate (iron) 325 mg PO DAILY losartan 100 mg PO DAILY 90 days omeprazole 40 mg PO DAILY Ventolin HFA 90 mcg/actuation (albuterol sulfate) 2 puffs inhalation Q6H PRN 30 days NS Do you need a note to return to daycare/school/sports/work: No HPI Comments Details: Patient returns for postop wound check following bilateral mastectomies. She denies any further pain or swelling in the bilateral mastectomy incisions but does report some tightness when raising her right arm overhead. She does not feel this on the left side in his concerned. [facility] Medical History Anemia Helicobacter pylori (H. pylori) infection Lumbar transverse process fracture Polyarthralgia Hand numbness Chronic fatigue Back pain Hypertension Asthma Surgical History S/P bilateral mastectomy (03/19/24) History of breast lump/mass excision (09/20/22) History of esophagogastroduodenoscopy (EGD) (01/26/24) H/O breast surgery H/O right breast biopsy Family History Father Cardiac murmur CVD (cardiovascular disease) Mother Diabetes Hypertension Sister No problems noted. Brother No problems noted. Brother No problems noted. Brother No problems noted. Social History Household Members: Family Housing: House Are you a primary care nurse rn to a significant other at home: No Do you presently have visiting nurse or other home services: No 75 years or older and lives alone: No Alcohol intake: current Alcohol intake frequency: holidays/special occasions only Alcohol type: beer Comment: aware of trip hazard Patient Tobacco Use Status: Never used Tobacco e-Cigarette/Vaping Use: Never Used Second Hand Smoke Exposure: No service: No Current occupational status: employed Current occupational exposures/hazards: No Cognitive needs: No Hearing needs: No Vision needs: Yes Review of Systems Const All systems reviewed & are unremarkable except as noted in HPI and below Physical Exam Vital Signs: Last Vital Signs BP 112/72 10/22/24 11:33 BMI result Body Mass Index 36.0 Const General: no acute distress Nutritional Appearance: well nourished Orientation/consciousness: patient oriented x3 Chest Other: Bilateral mastectomy incisions are clean, dry, and intact without palpable seroma or hematoma. When the patient raises her right arm over the head the skin flaps are relaxed without scar retraction noted. There is tightness perhaps in the pectoralis muscle but this has also seen on the left side to some degree. Resp Effort & Inspection: normal respiratory effort Skin Other: Warm, dry, no rash Neuro General: patient oriented x3 Extrem Other: No edema Assessment & Plan Assessment & Plan (1) Pseudoangiomatous stromal hyperplasia of breast: Code(s): N64.89 - Other specified disorders of breast Category: Medical Plan 44-year-old female patient presenting with bilateral breast lumps status post bilateral prophylactic mastectomy returning for postop evaluation. Her wounds are clean and intact without redness or discharge. There was no evidence of seroma or hematoma. She does report some tightness when raising her right arm over the head and this appears to be mainly related to the underlying muscular tissue. I recommended evaluation and treatment with physical therapy. She expressed understanding and agrees with the plan. Orders: Orders PT Evaluation and Treatment Today N64.89 - Other specified disorders of breast Coding Level of Care Code Est Pt Level 3 (37550) Diagnoses Pseudoangiomatous stromal hyperplasia of breast N64.89
[2024-10-22 11:33] VITALS: BP 112/72; BMI 36.0
== END 2024-10-22 12:00 | disposition home or self-care (01) ==
LOC: HO.HGS 11:29
PROVIDERS: PCP Internal Medicine; Visit Provider Surgery
DX: N64.89 Other specified disorders of breast (principal)
CPT/HCPCS: 99213

== ENCOUNTER → 2024-10-22 11:28 | Outpatient (BNVA) | payer OTHER, SELFPAY | PROVIDERS: PCP Internal Medicine; Visit Provider Surgery | DX: N64.89 Other specified disorders of breast (principal); E66.9 Obesity, unspecified; Z68.35 Body mass index [BMI] 35.0-35.9, adult; Z90.13 Acquired absence of bilateral breasts and nipples | CPT/HCPCS: 99212 ==

== ENCOUNTER 2024-10-22 12:28 | Outpatient (AMB) | payer OTHER, SELFPAY ==
--- NOTE | 2024-10-22 12:54 | MHC.OFFVISWM ---
VS Expanded 10/22/24 13:00 BP 137/66 Blood Pressure Location Rt brachial Blood Pressure Position Sitting Pulse 80 Pulse Source Pulse Oximeter Temp 97.6 F Temperature Source Temporal Artery Scan Pulse Oximetry 97 Oxygen Delivery Method Room Air Height 5 ft 5 in Weight 220 lb 6.4 oz BMI 36.7 Body Fat % 40.1 Body Fat Mass 88.4 Fat Free Mass 131.8 Visceral Fat Rating 10.0 Body Water % 42.7 Body Water Mass 94.2 Muscle Mass/Score 125.2 Basal Metabolic Rate/Score 1,821 Intake Visit Reasons: (OV) F/U SWL *see comments* Frozen Food Selector Required: Yes Frozen Food Selector Services: Frozen Food Selector Present Frozen Food Selector Name: hospital cmi Allergies environmental allergies Allergy (Intermediate, Verified 10/22/24 12:56) SOB, itchy throat grass pollen Allergy (Intermediate, Verified 10/22/24 12:56) shortness of breath, itchy throat, itchy HPI Comments Details: Patient is a 44-year-old female who returns to the office today in follow-up. She was initially seen in the surgical weight loss program on 11/11/2023. Due to scheduling issues she has not been seen since 03/29/24. At that time, her weight was 225 lb with a BMI of 36.9. Last seen in the office on 08/20/24 with weight of 231.8 with a BMI of 38.6. Weight today is 220.4 pounds with a BMI of 35.6. She has lost 15.4 lb or 6.5% total body weight loss. Since last being seen, she underwent bilateral mastectomy on 03/19/[address] Acevedo. At the time of her initial visit, she was given information regarding the right BMI sathish. States she is now using the right BMI and exercising regularly. Works overnights Not communicating by text Meal plan: pure protein bar, 3-5am [employer] 30 gm RTD shake 6-8 am 2 eggs 10 am [employer] shake 5-7 pm (sometimes) meal 6 pm 6 forks protein and 6 forks veg 80-96 oz water Exercise treadmill, daily 40 minutes, 400-430 PFSH Medical History Anemia Helicobacter pylori (H. pylori) infection Lumbar transverse process fracture Polyarthralgia Hand numbness Chronic fatigue Back pain Hypertension Asthma Surgical History S/P bilateral mastectomy (03/19/24) History of breast lump/mass excision (09/20/22) History of esophagogastroduodenoscopy (EGD) (01/26/24) H/O breast surgery H/O right breast biopsy Family History Father Cardiac murmur CVD (cardiovascular disease) Mother Diabetes Hypertension Sister No problems noted. Brother No problems noted. Brother No problems noted. Brother No problems noted. Social History Household Members: Family Housing: House Are you a primary nursing care partner to a significant other at home: No Do you presently have visiting nurse or other home services: No 75 years or older and lives alone: No Alcohol intake: current Alcohol intake frequency: holidays/special occasions only Alcohol type: beer Comment: aware of trip hazard Patient Tobacco Use Status: Never used Tobacco e-Cigarette/Vaping Use: Never Used Second Hand Smoke Exposure: No service: No Current occupational status: employed Current occupational exposures/hazards: No Cognitive needs: No Hearing needs: No Vision needs: Yes Physical Exam Const General: healthy appearing and no acute distress Resp Effort & Inspection: normal respiratory effort Auscultation: clear to auscultation bilaterally Cardio Rate: regular rate Rhythm: regular rhythm GI Auscultation: normal bowel sounds Extrem General: Yes normal to inspection Quality Reporting (2019) Adult ([facility] 138/06/09/68) Smoking risk assessment performed?: Yes Patient Tobacco Use Status: Never used Tobacco Assessment & Plan Assessment & Plan (1) Obesity (BMI 30-39.9): Code(s): E66.9 - Obesity, unspecified Category: Medical Plan: Patient has begun to make progress. She is now committed to following the plans. She requires help in the sense that she needs to measure the quantity of food that she is consuming and follow the plans exactly. Additionally, she is doing well with her exercise routine. She has been encouraged to communicate weekly with her weight is and text with any questions or concerns. We will have her return to the office in approximately 1 month
[2024-10-22 13:00] VITALS: BP 137/66; PULSE 80; TEMP 36.4; O2SAT 97; BMI 36.7
== END 2024-10-22 13:26 | disposition home or self-care (01) ==
LOC: HO.HBS 12:29
PROVIDERS: PCP Internal Medicine; Visit Provider Physician Assistant Surgical
DX: E66.9 Obesity, unspecified (principal); Z68.36 Body mass index [BMI] 36.0-36.9, adult
CPT/HCPCS: 99213